=== PATIENT | male | born 1940 | race Caucasian/White ===

== ENCOUNTER 2019-03-20 08:40 | Inpatient (IN) | payer MEDICARE ==
--- NOTE | 2019-03-20 11:10 | ER Document Report ---
ED Medical Screen (RME) - General Chief Complaint: Shortness Of Breath Stated Complaint: TROUBLE BREATHING Time Seen by Provider: 03/20/19 11:01 Primary Care Provider: RAFITA ROBINS MD [Primary Care Provider] - Follow up as needed TRAVEL OUTSIDE OF THE [place] IN LAST 30 DAYS: No - HPI Notes: 03/20/19 11:09 Patient is a 78-year-old male with no significant past medical history who presents complaining of intermittent shortness of breath primarily with ambulation over the past 3 weeks with the development of a dry cough over the past 2 to 3 days. Patient states that he is otherwise feeling well and is eating and drinking without difficulty. He is urinating normally and having normal bowel movements. No history of UT, CAD, CHF, CKD, DM, PE, DVT. Patient does not have any pain associated. Denies ACOSTA, fever, neck pain, URI, CP, n/v/d, Abd pain, dysuria, back pain, or rash. I have treated and performed a rapid initial assessment of this patient. A comprehensive ED assessment and evaluation of the patient, analysis of test results and completion of medical decision making process will be conducted by additional ED providers. PHYSICAL EXAMINATION: GENERAL: Well-appearing, well-nourished and in no acute distress. A&Ox4. Answers questions appropriately. Speaking in complete sentences without any difficulty. LUNGS: Breath sounds clear to auscultation bilaterally and equal. No wheezes rales or rhonchi. HEART: Regular rate and rhythm without murmurs, rubs, gallops. Extremities: No cyanosis, clubbing, or edema b/l. No lower extremity asymmetry. NEUROLOGICAL: Normal speech, normal gait. PSYCH: Normal mood, normal affect. - Related Data Allergies/Adverse Reactions: Penicillins Allergy (Verified 03/20/19 08:45) Physical Exam - Vital signs Vitals: Temp Pulse Resp BP Pulse Ox 98.1 F 103 H 18 121/73 96 03/20/19 08:49 03/20/19 08:49 03/20/19 08:49 03/20/19 08:49 03/20/19 08:49 Course - Vital Signs Vital signs: Temp Pulse Resp BP Pulse Ox 98.1 F 103 H 18 121/73 96 03/20/19 08:49 03/20/19 08:49 03/20/19 08:49 03/20/19 08:49 03/20/19 08:49 Doctor's Discharge - Discharge Referrals: RAFITA ROBINS MD [Primary Care Provider] - Follow up as needed
--- NOTE | 2019-03-20 11:57 | RADIOLOGY REPORT (SQ) ---
EXAM DESCRIPTION: CHEST 2 VIEWS COMPLETED DATE/TIME: 03/20/2019 11:40 am REASON FOR STUDY: cough, sob COMPARISON: None. NUMBER OF VIEWS: Two view. TECHNIQUE: Frontal and lateral radiographic views of the chest acquired. LIMITATIONS: None. FINDINGS: LUNGS AND PLEURA: Hyperinflation. No evidence of pulmonary edema or pneumonia. No pleural effusion. Attenuated blood vessels and flattened jes-diaphragms. MEDIASTINUM AND HILAR STRUCTURES: No masses. No contour abnormalities. HEART AND VASCULAR STRUCTURES: Cardiomegaly. No evidence for failure. BONES: No acute findings. HARDWARE: None in the chest. OTHER: No other significant finding. IMPRESSION: COPD. NO ACUTE RADIOGRAPHIC FINDING IN THE CHEST. TECHNICAL DOCUMENTATION: JOB ID: [id number] [employer]- All Rights Reserved Reading location - IP/workstation name: [email or web address]
[2019-03-20 12:00] LABS: ABSOLUTE BASOPHILS # (AUTO) 0.1 10^3/uL (0.0-0.2); ABSOLUTE EOSINOPHILS # (AUTO) 0.3 10^3/uL (0.0-0.6); ABSOLUTE LYMPHOCYTES (AUTO) 1.4 10^3/uL (0.5-4.7); ABSOLUTE MONOCYTES (AUTO) 0.5 10^3/uL (0.1-1.4); ABSOLUTE NEUT (AUTO) 3.8 10^3/uL (1.7-8.2); EOSINOPHILS % (AUTO) 4.9 % (0-6); HEMATOCRIT 41.5 % (37.9-51.0); HEMOGLOBIN 13.9 g/dL (13.5-17.0); LYMPHOCYTES % (AUTO) 23.9 % (13-45); MEAN CORPUSCULAR HEMOGLOBIN 29.9 pg (27.0-33.4); MEAN CORPUSCULAR HGB CONC 33.6 g/dL (32.0-36.0); MEAN CORPUSCULAR VOLUME 89 fl (80-97); MONOCYTES % (AUTO) 7.8 % (3-13); PLATELET COUNT 107 10^3/uL (150-450); RED BLOOD COUNT 4.66 10^6/uL (4.35-5.55); RED CELL DISTRIBUTION WIDTH 13.9 % (11.5-14.0); SEGMENTED NEUTROPHILS % (AUTO) 62.4 % (42-78); TOTAL CELLS COUNTED % (AUTO) 100 %; WHITE BLOOD COUNT 6.1 10^3/uL (4.0-10.5)
[2019-03-20 12:09] LABS: APPEARANCE,URINE CLEAR; BILIRUBIN,URINE NEGATIVE (NEGATIVE); COLOR,URINE YELLOW; GLUCOSE, URINE NEGATIVE (NEGATIVE); KETONES,URINE NEGATIVE (NEGATIVE); LEUKOCYTE ESTERASE,URINE NEGATIVE (NEGATIVE); NITRITE,URINE NEGATIVE (NEGATIVE); PROTEIN,URINE NEGATIVE (NEGATIVE); URINE SPECIFIC GRAVITY 1.016
[2019-03-20 12:19] LABS: ALANINE AMINOTRANSFERASE 21 U/L (21-72); ALBUMIN 4.2 g/dL (3.5-5.0); ALKALINE PHOSPHATASE 78 U/L (38-126); ANION GAP 7 (5-19); ASPARTATE AMINO TRANSFERASE 23 U/L (17-59); BILIRUBIN,DIRECT 0.2 mg/dL (0.0-0.4); BILIRUBIN,TOTAL 0.6 mg/dL (0.2-1.3); BLOOD UREA NITROGEN 16 mg/dL (7-20); CALCIUM 9.6 mg/dL (8.4-10.2); CARBON DIOXIDE 29 mmol/L (22-30); CHLORIDE 104 mmol/L (98-107); GLUCOSE 86 mg/dL (75-110); SODIUM 139.8 mmol/L (137-145); TOTAL PROTEIN 6.8 g/dL (6.3-8.2)
--- NOTE | 2019-03-20 14:24 | RADIOLOGY REPORT (SQ) ---
EXAM DESCRIPTION: CTA CHEST COMPLETED DATE/TIME: 03/20/2019 2:02 pm REASON FOR STUDY: eval for PE COMPARISON: None. TECHNIQUE: CT scan of the chest performed using helical scanning technique with dynamic intravenous contrast injection. Images reviewed with lung, soft tissue and bone windows. Reconstructed coronal and sagittal MPR images reviewed. Additional 3 dimensional post-processing performed to develop Maximal Intensity Projection images (CA P). All images stored on PACS. All CT scanners at this facility use dose modulation, iterative reconstruction, and/or weight based d osing when appropriate to reduce radiation dose to as low as reasonably achievable (ALARA). [facility]: Dose Right [facility]: CareDose [facility]: Dose Right [facility]: Teradose 4D [facility]: Teleus CONTRAST TYPE AND DOSE: contrast/concentration: Isovue 350.00 mg/ml; Total Contrast Delivered: 74.0 ml; Total Saline Delivered: 90.0 ml Contrast bolus not optimized for the pulmonary arteries. RENAL FUNCTION: GFR > 60. RADIATION DOSE: CT Rad equipment meets quality standard of care and radiation dose reduction techniq ues were employed. CTDIvol: 14.3 - 19.8 mGy. DLP: 601 mGy-cm. . LIMITATIONS: None. FINDINGS: LUNGS AND PLEURA: No pneumothorax. Bibasilar small areas of airspace disease-atelectasis and pleural effusions. AORTA AND GREAT VESSELS: 4 cm infrarenal abdominal aortic aneurysm. . Contrast bolus not optimized for the aorta. HEART: No pericardial effusion. Heavy coronary artery calcifications. PULMONARY ARTERIES: No emboli visualized in the main pulmonary arteries. Bolus timing prevents evalu ation of the segmental branches. HILAR AND MEDIASTINAL STRUCTURES: No identified masses or abnormal nodes. HARDWARE: None in the chest. UPPER ABDOMEN: 4 cm infrarenal abdominal aortic aneurysm. Limited exam. THYROID AND OTHER SOFT TISSUES: No masses. No adenopathy. BONES: No acute or significant finding. 3D MIPS: Confirm above findings. OTHER: No other significant finding. IMPRESSION: Bibasilar small areas of airspace disease-atelectasis and pleural effusions. No emboli visualized in the main pulmonary arteries. Contrast bolus timing prevents evaluation of th e segmental branches. 4 cm infrarenal abdominal aortic aneurysm. Limited exam. COMMENT: Quality ID # [id number]: Final reports with documentation of one or more dose reduction techniques (e.g., Automated exposure control, adjustment of the mA and/or kV according to patient size, use of iterative reconstruction technique) TECHNICAL DOCUMENTATION: JOB ID: [id number] [place]-72 2010 [employer]- All Rights Reserved Reading location - IP/workstation name: [email or web address]
--- NOTE | 2019-03-20 14:50 | ER Document Report ---
ED General - General Chief Complaint: Shortness Of Breath Stated Complaint: TROUBLE BREATHING Time Seen by Provider: 03/20/19 11:01 Primary Care Provider: RAFITA ROBINS MD [Primary Care Provider] - Follow up as needed TRAVEL OUTSIDE OF THE [place] IN LAST 30 DAYS: No - HPI Notes: Patient is a 78-year-old gentleman who presents to the emergency department for evaluation of difficulty breathing. He states is primarily with ambulation. He has had a cough that has been nonproductive. Symptoms have been ongoing intermittently for the last 6 weeks. He denies any fevers or chills. He denies any nausea or vomiting. 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 He states that he has had intermittent chest pain over the last several years, states that that has not been worse as of late. No fevers or chills. No nausea or vomiting. He always has intermittent swelling in his legs, states that does not seem to be worse than normal. - Related Data Allergies/Adverse Reactions: Penicillins Allergy (Verified 03/20/19 08:45) Past Medical History - General Information source: Patient - Social History Smoking Status: Never Smoker Frequency of alcohol use: None Drug Abuse: None Family History: Reviewed & Not Pertinent Patient has suicidal ideation: No Patient has homicidal ideation: No - Past Medical History Cardiac Medical History: Reports: Hx Pulmonary Embolism Renal/ Medical History: Denies: Hx Peritoneal Dialysis Past Surgical History: Reports: Hx Abdominal Surgery Review of Systems - Review of Systems Constitutional: No symptoms reported EENT: No symptoms reported Cardiovascular: See HPI Respiratory: See HPI Gastrointestinal: No symptoms reported Genitourinary: No symptoms reported Musculoskeletal: See HPI Skin: No symptoms reported Neurological/Psychological: No symptoms reported Physical Exam - Vital signs Vitals: Temp Pulse Resp BP Pulse Ox 98.1 F 103 H 18 121/73 96 03/20/19 08:49 03/20/19 08:49 03/20/19 08:49 03/20/19 08:49 03/20/19 08:49 - Notes Notes: Vital signs reviewed, please refer to chart. Head is normocephalic, atraumatic. Pupils equal round, reactive to light. Neck is supple without meningismus. Heart is regular rate and rhythm. Lungs are clear to auscultation bilaterally. Abdomen is soft, nontender, normoactive bowel sounds throughout. Extremities without cyanosis, clubbing. Posterior calves are nontender. 2+ pretibial edema noted. Peripheral pulses are equal. Skin is warm and dry. Patient is awake, alert, neurological exam is nonfocal. Course - Re-evaluation Re-evalutation: 03/20/19 16:51 Patient presents emergency department for evaluation of dyspnea on exertion. Laboratory investigations reveal a markedly elevated proBNP. Because of his history of pulmonary embolus, I did order a CT angiogram of the chest. In fact this PE was trauma induced. CT angiogram failed to reveal any pulmonary embolus. He does have pleural effusions. I believe this is all secondary to heart failure. He was ambulated around the department. He was 82% on room air with ambulation. Given IV Lasix. This is a patient who has no primary care physician. He does not follow regularly with any doctor. He has significant coronary artery calcification on CT angiogram. Will contact medicine for admission. 03/20/19 16:55 Dr. Rodrigez will come to evaluate the patient. - Vital Signs Vital signs: Temp Pulse Resp BP Pulse Ox 98.1 F 103 H 16 124/105 H 98 03/20/19 08:49 03/20/19 08:49 03/20/19 16:01 03/20/19 16:01 03/20/19 16:01 - Laboratory Result Diagrams: 03/20/19 11:48 03/20/19 11:48 Laboratory results interpreted by me: 03/20/19 03/20/19 03/20/19 11:48 11:48 11:48 Plt Count 107 L NT-Pro-B Natriuret Pep 5200 H Urine Blood SMALL H Urine Urobilinogen 2.0 H - Diagnostic Test Radiology reviewed: Reports reviewed Radiology results interpreted by me: 03/20/19 16:51 Chest X-Ray 03/20/19 11:08 IMPRESSION: COPD. NO ACUTE RADIOGRAPHIC FINDING IN THE CHEST. Chest/Abdomen CTA 03/20/19 13:07 IMPRESSION: Bibasilar small areas of airspace disease-atelectasis and pleural effusions. No emboli visualized in the main pulmonary arteries. Contrast bolus timing prevents evaluation of the segmental branches. 4 cm infrarenal abdominal aortic aneurysm. Limited exam. - EKG Interpretation by Me Additional EKG results interpreted by me: 03/20/19 16:52 Sinus mechanism with a rate of 81 bpm. Normal axis. IVCD. Nonspecific ST c hanges, but no acute changes concerning for ischemia or infarction. No old studies available for comparison. Discharge - Discharge Clinical Impression: Dyspnea on exertion Congestive heart failure Qualifiers: Heart failure chronicity: unspecified Condition: Stable Disposition: ADMITTED OBSERVATION Admitting Provider: Rain (Hospitalist) Unit Admitted: IMCU Referrals: RAFITA ROBINS MD [Primary Care Provider] - Follow up as needed
[2019-03-20] MEDS ORDERED: FUROSEMIDE INJ/PF 20 MG/2 ML SDV IV ONE (16:46)
--- NOTE | 2019-03-20 17:43 | PDOC H&P ---
History of Present Illness Admission Date/PCP: RAFITA ROBINS MD History of Present Illness: JARROD PAYNE is a 78 year old male patient with past medical history of pulmonary embolism presents with chief complaint of shortness of breath and difficulty breathing. Patient reports this has been in his usual baseline state of health up until 6 weeks when he started to have difficulty breathing and shortness of breath which is progressively worsening and precipitated by mild exertion. This morning patient is not able to do what he used to do before. 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 Patient also endorses associated intermittent cough which is nonproductive. Eyes any nausea vomiting or abdominal pain. No diarrhea no urinary complaints. No headache, dizziness, blurring of vision or seizure activities. His blood work is remarkable for BNP of 5200. His CTA of the chest reported as bibasilar a small area of airspace disease/atelectasis and pleural effusion. Past Medical History Cardiac Medical History: Reports: Pulmonary Embolism Social History Smoking Status: Never Smoker - Advance Directive Resuscitation Status: Full Code Family History Family History: Reviewed & Not Pertinent Parental Family History Reviewed: Yes Children Family History Reviewed: Yes Sibling(s) Family History Reviewed.: Yes Medication/Allergy Allergies/Adverse Reactions: Penicillins Allergy (Verified 03/20/19 08:45) Review of Systems Constitutional: ABSENT: chills, fever(s), headache(s), weight gain, weight loss Eyes: ABSENT: visual disturbances Ears: ABSENT: hearing changes Cardiovascular: PRESENT: chest pain, dyspnea on exertion Respiratory: PRESENT: cough Gastrointestinal: ABSENT: abdominal pain, constipation, diarrhea, hematemesis, hematochezia, nausea, vomiting Genitourinary: ABSENT: dysuria, hematuria Musculoskeletal: ABSENT: joint swelling Integumentary: ABSENT: rash, wounds Neurological: ABSENT: abnormal gait, abnormal speech, confusion, dizziness, focal weakness, syncope Psychiatric: ABSENT: anxiety, depression, homidical ideation, suicidal ideation Endocrine: ABSENT: cold intolerance, heat intolerance, polydipsia, polyuria Hematologic/Lymphatic: ABSENT: easy bleeding, easy bruising Physical Exam Vital Signs: Temp Pulse Resp BP Pulse Ox 98.1 F 103 H 16 124/105 H 98 03/20/19 08:49 03/20/19 08:49 03/20/19 16:01 03/20/19 16:01 03/20/19 16:01 Intake & Output 03/19/19 03/20/19 03/21/19 06:59 06:59 06:59 Weight 78.7 kg General appearance: PRESENT: no acute distress Head exam: PRESENT: atraumatic Neck exam: ABSENT: carotid bruit, JVD, lymphadenopathy, thyromegaly Respiratory exam: PRESENT: decreased breath sounds, rales. ABSENT: rhonchi, wheezes Cardiovascular exam: PRESENT: RRR. ABSENT: diastolic murmur, rubs, systolic murmur GI/Abdominal exam: PRESENT: normal bowel sounds, soft. ABSENT: distended, guarding, mass, organolmegaly, rebound, tenderness Extremities exam: PRESENT: +2 edema - Bilateral Neurological exam: PRESENT: alert, awake, oriented to place, oriented to time, oriented to situation Results Laboratory Results: 03/20/19 11:48 03/20/19 11:48 03/20/19 03/20/19 03/20/19 11:48 11:48 11:48 WBC 6.1 RBC 4.66 Hgb 13.9 Hct 41.5 MCV 89 MCH 29.9 MCHC 33.6 RDW 13.9 Plt Count 107 L Seg Neutrophils % 62.4 Lymphocytes % 23.9 Monocytes % 7.8 Eosinophils % 4.9 Basophils % 1.0 Absolute Neutrophils 3.8 Absolute Lymphocytes 1.4 Absolute Monocytes 0.5 Absolute Eosinophils 0.3 Absolute Basophils 0.1 Sodium 139.8 Potassium 4.0 Chloride 104 Carbon Dioxide 29 Anion Gap 7 BUN 16 Creatinine 0.76 Est GFR ( Amer) > 60 Est GFR (Non-Af Amer) > 60 Glucose 86 Calcium 9.6 Total Bilirubin 0.6 AST 23 ALT 21 Alkaline Phosphatase 78 Total Protein 6.8 Albumin 4.2 Urine Color YELLOW Urine Appearance CLEAR Urine pH 6.0 Ur Specific [place] 1.016 Urine Protein NEGATIVE Urine Glucose (UA) NEGATIVE Urine Ketones NEGATIVE Urine Blood SMALL H Urine Nitrite NEGATIVE Ur Leukocyte Esterase NEGATIVE Urine WBC (Auto) 2 Urine RBC (Auto) 9 03/20/19 11:48 NT-Pro-B Natriuret Pep 5200 H Impressions: Chest X-Ray 03/20/19 11:08 IMPRESSION: COPD. NO ACUTE RADIOGRAPHIC FINDING IN THE CHEST. Chest/Abdomen CTA 03/20/19 13:07 IMPRESSION: Bibasilar small areas of airspace disease-atelectasis and pleural effusions. No emboli visualized in the main pulmonary arteries. Contrast bolus timing prevents evaluation of the segmental branches. 4 cm infrarenal abdominal aortic aneurysm. Limited exam. Assessment and Plan - Diagnosis (1) New onset of congestive heart failure Is this a current diagnosis for this admission?: Yes Plan: Shortness of breath precipitated by mild exertion. Bilateral +3 pitting edema. BNP of 5200. We will start the patient on IV Lasix and also he will be on Coreg and lisinopril. Echocardiogram in the morning. (2) Aneurysm of infrarenal abdominal aorta Is this a current diagnosis for this admission?: Yes Plan: CT scan reported as 4 cm infrarenal abdominal aortic aneurysm. Patient needs ultrasound follow-up with his primary care physician office. - Inpatient Certification Medical Necessity: Need Close Monitoring Due to Risk of Patient Decompensation
[2019-03-20] MEDS ORDERED: ONDANSETRON HCL INJ/PF 4 MG/2 ML SDV IV PRN (17:44)
[2019-03-20] MEDS: ENOXAPARIN SODIUM INJ 40 MG/0.4 ML DISP.SYRIN SUBCUT SCH (19:39)
[2019-03-20] MEDS: BENAZEPRIL HCL 10 MG TABLET PO SCH (21:13)
[2019-03-20] MEDS: FAMOTIDINE 20 MG TABLET PO SCH (21:18)
[2019-03-20] MEDS: FUROSEMIDE INJ/PF 40 MG/4 ML SDV IV SCH (21:18)
[2019-03-20] MEDS: CARVEDILOL 6.25 MG TABLET PO SCH (21:18)
--- NOTE | 2019-03-20 23:03 | EKG REPORT ---
SEVERITY:- ABNORMAL ECG - SINUS RHYTHM PROBABLE LEFT ATRIAL ABNORMALITY NONSPECIFIC INTRAVENTRICULAR CONDUCTION DELAY INFERIOR INFARCT, AGE INDETERMINATE LATERAL INFARCT, AGE INDETERMINATE ANTERIOR INFARCT, AGE INDETERMINATE : Confirmed by: Keyla Batres 20-Mar-2019 23:03:11
[2019-03-21] MEDS: TEMAZEPAM 15 MG CAPSULE PO PRN (00:51)
[2019-03-21 05:37] LABS: ANION GAP 10 (5-19); BLOOD UREA NITROGEN 20 mg/dL (7-20); CALCIUM 9.3 mg/dL (8.4-10.2); CARBON DIOXIDE 28 mmol/L (22-30); CHLORIDE 100 mmol/L (98-107); GLUCOSE 102 mg/dL (75-110); POTASSIUM 4.2 mmol/L (3.6-5.0); SODIUM 138.3 mmol/L (137-145)
[2019-03-21] MEDS: ACETAMINOPHEN 325 MG TABLET PO PRN (06:58)
[2019-03-21] MEDS: BENAZEPRIL HCL 10 MG TABLET PO SCH ×2 (10:24→22:03)
[2019-03-21] MEDS: ENOXAPARIN SODIUM INJ 40 MG/0.4 ML DISP.SYRIN SUBCUT SCH (10:24)
[2019-03-21] MEDS: CARVEDILOL 6.25 MG TABLET PO SCH ×2 (10:34→22:01)
[2019-03-21] MEDS: DOCUSATE SODIUM 100 MG/10 ML UDC PO SCH ×2 (10:34→19:08)
[2019-03-21] MEDS: FAMOTIDINE 20 MG TABLET PO SCH ×2 (10:34→22:01)
[2019-03-21] MEDS: FUROSEMIDE INJ/PF 40 MG/4 ML SDV IV SCH ×2 (10:34→22:01)
[2019-03-21] MEDS: CHOLECALCIFEROL (D3) 1,000 UNIT (25 MCG) TABLET PO SCH (10:34)
--- NOTE | 2019-03-21 12:26 | PDOC PROGRESS REPORT ---
Subjective Progress Note for:: 03/21/19 Subjective:: JARROD PAYNE is a 78 year old male patient with past medical history of pulmonary embolism presents with chief complaint of shortness of breath and difficulty breathing. Patient reports this has been in his usual baseline state of health up until 6 weeks when he started to have difficulty breathing and shortness of breath which is progressively worsening and precipitated by mild exertion. This morning patient is not able to do what he used to do before. 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 Patient also endorses associated intermittent cough which is nonproductive. Eyes any nausea vomiting or abdominal pain. No diarrhea no urinary complaints. No headache, dizziness, blurring of vision or seizure activities. His blood work is remarkable for BNP of 5200. His CTA of the chest reported as bibasilar a small area of airspace disease/atelectasis and pleural effusion. 03/21/2019: Patient seen and examined while he is in bed. He is awake alert oriented. Reports his market improvement in his breathing. He states that he feels more energetic. Patient scheduled to have echo. Patient's potential discharge in the next 2448 hrs. Reason For Visit: NEW ONSET CHF Physical Exam Vital Signs: Temp Pulse Resp BP Pulse Ox 98.1 F 71 17 114/70 96 03/20/19 23:31 03/21/19 02:00 03/20/19 23:31 03/20/19 23:31 03/20/19 23:31 Intake & Output 03/20/19 03/21/19 03/22/19 06:59 06:59 06:59 Weight 78.7 kg General appearance: PRESENT: no acute distress Eye exam: PRESENT: conjunctiva pink Neck exam: ABSENT: carotid bruit, JVD, lymphadenopathy, thyromegaly Respiratory exam: PRESENT: clear to auscultation joslyn. ABSENT: rales, rhonchi, wheezes Cardiovascular exam: PRESENT: RRR. ABSENT: diastolic murmur, rubs, systolic murmur Vascular exam: PRESENT: normal capillary refill Extremities exam: PRESENT: +2 edema Neurological exam: PRESENT: alert, awake, oriented to person, oriented to place, oriented to time, oriented to situation Results Laboratory Results: 03/20/19 11:48 03/21/19 04:19 03/21/19 03/21/19 04:19 04:19 Sodium 138.3 Potassium 4.2 Chloride 100 Carbon Dioxide 28 Anion Gap 10 BUN 20 Creatinine 0.86 Est GFR ( Amer) > 60 Est GFR (Non-Af Amer) > 60 Glucose 102 Calcium 9.3 TSH 2.20 03/20/19 11:48 NT-Pro-B Natriuret Pep 5200 H Impressions: Chest X-Ray 03/20/19 11:08 IMPRESSION: COPD. NO ACUTE RADIOGRAPHIC FINDING IN THE CHEST. Chest/Abdomen CTA 03/20/19 13:07 IMPRESSION: Bibasilar small areas of airspace disease-atelectasis and pleural effusions. No emboli visualized in the main pulmonary arteries. Contrast bolus timing prevents evaluation of the segmental branches. 4 cm infrarenal abdominal aortic aneurysm. Limited exam. Assessment and Plan - Diagnosis (1) New onset of congestive heart failure Is this a current diagnosis for this admission?: Yes Plan: Continue current regimen (2) Aneurysm of infrarenal abdominal aorta Is this a current diagnosis for this admission?: Yes Plan: CT scan reported as 4 cm infrarenal abdominal aortic aneurysm. Patient needs ultrasound follow-up with his primary care physician office.
[2019-03-21] MEDS ORDERED: MULTIVITAMIN TABLET PO SCH (14:00)
[2019-03-22] MEDS: TEMAZEPAM 15 MG CAPSULE PO PRN (00:01)
[2019-03-22] MEDS ORDERED: DIAZEPAM 5 MG TABLET ONE (01:30)
[2019-03-22] MEDS ORDERED: DIAZEPAM 5 MG TABLET PO ONE (01:30)
[2019-03-22] MEDS: ACETAMINOPHEN 325 MG TABLET PO PRN (03:26)
[2019-03-22] MEDS ORDERED: POTASSIUM CHLORIDE 10 MEQ CAPSULE.ER PO ONE ×2 (10:30→14:26)
[2019-03-22 12:27] LABS: TRIGLYCERIDES 217 mg/dL (<150)
[2019-03-22 12:38] LABS: DIRECT LDL 156 mg/dL (<100)
[2019-03-22 12:40] LABS: VLDL CHOLESTEROL 43.4 mg/dL (10-31)
[2019-03-22] MEDS: ENOXAPARIN SODIUM INJ 40 MG/0.4 ML DISP.SYRIN SUBCUT SCH (14:23)
[2019-03-22] MEDS: DOCUSATE SODIUM 100 MG/10 ML UDC PO SCH ×2 (14:23→18:04)
[2019-03-22] MEDS: CARVEDILOL 6.25 MG TABLET PO SCH ×2 (14:23→21:39)
[2019-03-22] MEDS: BENAZEPRIL HCL 10 MG TABLET PO SCH (14:24)
[2019-03-22] MEDS: FAMOTIDINE 20 MG TABLET PO SCH ×2 (14:24→21:39)
[2019-03-22] MEDS: MULTIVITAMIN TABLET PO SCH (14:29)
[2019-03-22] MEDS: MAGNESIUM OXIDE 400 MG TABLET PO SCH (14:29)
[2019-03-22] MEDS: CHOLECALCIFEROL (D3) 1,000 UNIT (25 MCG) TABLET PO SCH (14:29)
[2019-03-22] MEDS: FUROSEMIDE INJ/PF 40 MG/4 ML SDV IV SCH ×2 (14:29→21:39)
--- NOTE | 2019-03-22 17:15 | PDOC PROGRESS REPORT ---
Subjective Progress Note for:: 03/22/19 Subjective:: JARROD PAYNE is a 78 year old male patient with past medical history of pulmonary embolism presents with chief complaint of shortness of breath and difficulty breathing. Patient reports this has been in his usual baseline state of health up until 6 weeks when he started to have difficulty breathing and shortness of breath which is progressively worsening and precipitated by mild exertion. This morning patient is not able to do what he used to do before. 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 Patient also endorses associated intermittent cough which is nonproductive. Eyes any nausea vomiting or abdominal pain. No diarrhea no urinary complaints. No headache, dizziness, blurring of vision or seizure activities. His blood work is remarkable for BNP of 5200. His CTA of the chest reported as bibasilar a small area of airspace disease/atelectasis and pleural effusion. 03/22/2019. No acute events overnight, patient is ambulatory, p.o. tolerant, having normal bowel and bladder movements, lower extremity edema has improved, has any fever, chills, nausea, vomiting, diarrhea, constipation or any urinary symptoms. Patient has a pending 2D echo. Reason For Visit: NEW ONSET CHF Physical Exam Vital Signs: Temp Pulse Resp BP Pulse Ox 97.5 F 62 14 107/70 98 03/22/19 11:28 03/22/19 11:28 03/22/19 11:28 03/22/19 11:28 03/22/19 11:28 Intake & Output 03/21/19 03/22/19 03/23/19 06:59 06:59 06:59 Intake Total 600 Balance 600 Weight 78.7 kg 78.7 kg General appearance: PRESENT: no acute distress, well-developed, well-nourished Head exam: PRESENT: atraumatic, normocephalic Eye exam: PRESENT: conjunctiva pink, EOMI, PERRLA. ABSENT: scleral icterus Ear exam: PRESENT: normal external ear exam Mouth exam: PRESENT: moist, tongue midline Neck exam: ABSENT: carotid bruit, JVD, lymphadenopathy, thyromegaly Respiratory exam: PRESENT: clear to auscultation joslyn. ABSENT: rales, rhonchi, wheezes Cardiovascular exam: PRESENT: RRR. ABSENT: diastolic murmur, rubs, systolic murmur Pulses: PRESENT: normal dorsalis pedis pul Vascular exam: PRESENT: normal capillary refill GI/Abdominal exam: PRESENT: normal bowel sounds, soft. ABSENT: distended, guarding, mass, organolmegaly, rebound, tenderness Rectal exam: PRESENT: deferred Extremities exam: PRESENT: full ROM. ABSENT: calf tenderness, clubbing, pedal edema Neurological exam: PRESENT: alert, awake, oriented to person, oriented to place, oriented to time, oriented to situation, CN II-XII grossly intact. ABSENT: motor sensory deficit Psychiatric exam: PRESENT: appropriate affect, normal mood. ABSENT: homicidal ideation, suicidal ideation Skin exam: PRESENT: dry, intact, warm. ABSENT: cyanosis, rash Results Laboratory Results: 03/20/19 11:48 03/21/19 04:19 03/22/19 03/22/19 04:19 11:52 Triglycerides Cancelled 217 H Cholesterol Cancelled 271.90 H LDL Cholesterol Direct Cancelled 156 H VLDL Cholesterol Cancelled 43.4 H HDL Cholesterol Cancelled 63 03/20/19 11:48 NT-Pro-B Natriuret Pep 5200 H Impressions: Chest X-Ray 03/20/19 11:08 IMPRESSION: COPD. NO ACUTE RADIOGRAPHIC FINDING IN THE CHEST. Chest/Abdomen CTA 03/20/19 13:07 IMPRESSION: Bibasilar small areas of airspace disease-atelectasis and pleural effusions. No emboli visualized in the main pulmonary arteries. Contrast bolus timing prevents evaluation of the segmental branches. 4 cm infrarenal abdominal aortic aneurysm. Limited exam. Assessment and Plan - Diagnosis (1) New onset of congestive heart failure Is this a current diagnosis for this admission?: Yes Plan: Denies any history of CAD. proBNP on admission> 6000. Cardiac diet, IV diuretics, beta-blockers, FORD. Pending 2D echo. (2) Hyperlipidemia Is this a current diagnosis for this admission?: Yes Plan: ASCVD score 26.2. High intensity statins. Monitor LFTs. Outpatient PCP follow-up. (3) Aneurysm of infrarenal abdominal aorta Is this a current diagnosis for this admission?: Yes Plan: CT scan reported as 4 cm infrarenal abdominal aortic aneurysm. Outpatient PCP follow-up. Optimize BP. Continue treating hyperlipidemia.
[2019-03-22] MEDS ORDERED: ATORVASTATIN CALCIUM 40 MG TABLET PO SCH (22:00)
[2019-03-23 05:22] LABS: ABSOLUTE BASOPHILS # (AUTO) 0.1 10^3/uL (0.0-0.2); ABSOLUTE EOSINOPHILS # (AUTO) 0.4 10^3/uL (0.0-0.6); ABSOLUTE LYMPHOCYTES (AUTO) 1.7 10^3/uL (0.5-4.7); ABSOLUTE MONOCYTES (AUTO) 0.5 10^3/uL (0.1-1.4); ABSOLUTE NEUT (AUTO) 2.5 10^3/uL (1.7-8.2); EOSINOPHILS % (AUTO) 7.2 % (0-6); HEMATOCRIT 39.5 % (37.9-51.0); HEMOGLOBIN 13.5 g/dL (13.5-17.0); LYMPHOCYTES % (AUTO) 32.3 % (13-45); MEAN CORPUSCULAR HEMOGLOBIN 30.1 pg (27.0-33.4); MEAN CORPUSCULAR HGB CONC 34.1 g/dL (32.0-36.0); MEAN CORPUSCULAR VOLUME 88 fl (80-97); MONOCYTES % (AUTO) 10.2 % (3-13); RED BLOOD COUNT 4.47 10^6/uL (4.35-5.55); RED CELL DISTRIBUTION WIDTH 13.6 % (11.5-14.0); SEGMENTED NEUTROPHILS % (AUTO) 49.3 % (42-78); TOTAL CELLS COUNTED % (AUTO) 100 %; WHITE BLOOD COUNT 5.2 10^3/uL (4.0-10.5)
[2019-03-23 05:48] LABS: ALANINE AMINOTRANSFERASE 19 U/L (21-72); ALBUMIN 3.9 g/dL (3.5-5.0); ALKALINE PHOSPHATASE 77 U/L (38-126); ANION GAP 7 (5-19); ASPARTATE AMINO TRANSFERASE 21 U/L (17-59); BILIRUBIN,DIRECT 0.3 mg/dL (0.0-0.4); BILIRUBIN,TOTAL 0.6 mg/dL (0.2-1.3); BLOOD UREA NITROGEN 22 mg/dL (7-20); CALCIUM 9.4 mg/dL (8.4-10.2); CARBON DIOXIDE 27 mmol/L (22-30); CHLORIDE 100 mmol/L (98-107); GLUCOSE 97 mg/dL (75-110); PLATELET COUNT 92 10^3/uL (150-450); POTASSIUM 4.2 mmol/L (3.6-5.0); SODIUM 134.3 mmol/L (137-145); TOTAL PROTEIN 6.4 g/dL (6.3-8.2)
[2019-03-23] MEDS: FUROSEMIDE INJ/PF 40 MG/4 ML SDV IV SCH (09:36)
[2019-03-23] MEDS: ENOXAPARIN SODIUM INJ 40 MG/0.4 ML DISP.SYRIN SUBCUT SCH (09:43)
[2019-03-23] MEDS: FAMOTIDINE 20 MG TABLET PO SCH (09:44)
[2019-03-23] MEDS: DOCUSATE SODIUM 100 MG/10 ML UDC PO SCH (09:44)
[2019-03-23] MEDS: CARVEDILOL 6.25 MG TABLET PO SCH (09:45)
[2019-03-23] MEDS: MAGNESIUM OXIDE 400 MG TABLET PO SCH (09:46)
[2019-03-23] MEDS: MULTIVITAMIN TABLET PO SCH (09:46)
[2019-03-23] MEDS: CHOLECALCIFEROL (D3) 1,000 UNIT (25 MCG) TABLET PO SCH (09:46)
[2019-03-23] MEDS ORDERED: POTASSIUM CHLORIDE 10 MEQ CAPSULE.ER PO SCH (10:00)
[2019-03-23 10:26] VITALS: BP 107/70
[2019-03-23] MEDS ORDERED: LISINOPRIL 10 MG TABLET PO SCH (22:00)
--- NOTE | 2019-03-23 22:59 | XCELERA REPORT ---
[address] [address] Transthoracic Echocardiogram Report Name: JARROD PAYNE Age: 78 yrs Gender: Male : 1940 Patient Status: Inpatient Patient Location: [address] [place], [place] [address]A Study Date: 03/21/2019 10:15 AM Height: 72 in Weight: 173 lb BSA: 2.0 m2 Procedure: A two-dimensional transthoracic echocardiogram with color flow and Doppler was performed. The study was technically difficult with many images being suboptimal in quality. Reason For Study: New onset CHF History: CHF. Ordering Physician: SEA BIRMINGHAM Performed By: Manda Mar Interpretation Summary A two-dimensional transthoracic echocardiogram with color flow and Doppler was performed. The study was technically difficult with many images being suboptimal in quality. The left ventricle is moderately to severly dilated. There is normal left ventricular wall thickness. LV EF is 30% Left ventricular systolic function is severely reduced. The LV apex is akinetic.The mid Asnteroseptum,mid anterior wall, and mid IV septum are also akinetic.The rest of the LV armstrong are hypokinetic. There is no thrombus. Unable to assess for ASD,VSD,or PFO. The right ventricle is normal in size and function. The right atrium is normal. The left atrium is mildly dilated. There is mild to moderate mitral annular calcification. There is no evidence of mitral valve prolapse. There is no vegetation seen on the mitral valve. There is no mitral valve stenosis. There is a mild to moderate amount of mitral regurgitation There is no aortic valvular vegetation. There is mild aortic stenosis There is a peak gradient of 18 mm of Hg. There is no LVOT obstruction. There is a mild amount of aortic regurgitation There is no tricuspid stenosis. There is a mild amount of tricuspid regurgitation There is mild pulmonary hypertension by echo RVSP is 40 mm of Hg , with RA mean of 10. The pulmonic valve is not well visualized. The aortic root is not well visualized but is probably normal size. There is no pericardial effusion. MMode/2D Measurements & Calculations RVDd: 3.4 cm LVIDd: 7.6 cm FS: 20.5 % Ao root diam: 3.7 cm IVSd: 0.91 cm LVIDs: 6.1 cm EDV(Teich): Ao root area: LVPWd: 1.0 cm 311.3 ml 10.5 cm2 ESV(Teich): 185.4 ml EF(Teich): 40.4 % EDV(MOD-sp4): SV(MOD-sp4): 237.3 ml 91.6 ml ESV(MOD-sp4): 145.7 ml EF(MOD-sp4): 38.6 % Doppler Measurements & Calculations MV E max maría elena: MV dec slope: Ao V2 max: AI max maría elena: 81.1 cm/sec 212.7 cm/sec 351.8 cm/sec MV A max maría elena: 459.7 cm/sec2 Ao max PG: AI max P.5 mmHg 42.6 cm/sec MV dec time: 18.1 mmHg AI dec slope: MV E/A: 1.9 0.18 sec Ao V2 mean: 157.8 cm/sec 254.3 cm/sec2 AI P1/2t: 405.2 msec Ao mean P.5 mmHg Ao V2 VTI: 43.9 cm LV V1 max PG: TR max maría elena: 2.4 mmHg 277.2 cm/sec LV V1 mean PG: TR max P.7 mmHg 1.1 mmHg LV V1 max: 77.1 cm/sec LV V1 mean: 49.2 cm/sec LV V1 VTI: 15.2 cm LV dP/dt: 704.1 mmHg/s Left Ventricle The left ventricle is moderately to severly dilated. There is normal left ventricular wall thickness. LV EF is 30%. Left ventricular systolic function is severely reduced. The LV apex is akinetic.The mid Asnteroseptum,mid anterior wall, and mid IV septum are also akinetic.The rest of the LV armstrong are hypokinetic. There is no thrombus. Unable to assess for ASD,VSD,or PFO. Right Ventricle The right ventricle is normal in size and function. Atria The right atrium is normal. The left atrium is mildly dilated. Mitral Valve There is mild to moderate mitral annular calcification. There is no evidence of mitral valve prolapse. There is no vegetation seen on the mitral valve. There is no mitral valve stenosis. There is a mild to moderate amount of mitral regurgitation. Aortic Valve There is no aortic valvular vegetation. There is mild aortic stenosis. There is a peak gradient of 18 mm of Hg. There is no LVOT obstruction. There is a mild amount of aortic regurgitation. Tricuspid Valve There is no tricuspid stenosis. There is a mild amount of tricuspid regurgitation. There is mild pulmonary hypertension by echo. RVSP is 40 mm of Hg , with RA mean of 10. Pulmonic Valve The pulmonic valve is not well visualized. Great Vessels The aortic root is not well visualized but is probably normal size. The inferior vena cava was not visualized. Effusions There is no pericardial effusion. : SEA BIRMINGHAM > Mari Coronado
--- NOTE | 2019-03-26 11:54 | PDOC DISCHARGE SUMMARY ---
General - Admit/Disc Date/PCP Admission Date/Primary Care Provider: 03/20/19 17:49 RAFITA ROBINS MD Discharge Date: 03/23/19 - Discharge Diagnosis (1) New onset of congestive heart failure Is this a current diagnosis for this admission?: Yes (2) Hyperlipidemia Is this a current diagnosis for this admission?: Yes (3) Aneurysm of infrarenal abdominal aorta Is this a current diagnosis for this admission?: Yes - Additional Information Resuscitation Status: Full Code Discharge Diet: Cardiac Discharge Activity: Activity As Tolerated, Balance Activity w/Rest, Weigh Daily Prescriptions: Aspirin [Ecotrin 81 mg EC Tablet] 81 mg PO DAILY 30 Days #30 tabec Carvedilol [Coreg 6.25 mg Tablet] 6.25 mg PO Q12 30 Days #60 tablet Furosemide [Lasix 20 mg Tablet] 20 mg PO BID 30 Days #30 tablet Lisinopril [Zestril] 2.5 mg PO DAILY 30 Days #30 tablet Rosuvastatin Calcium [Crestor 20 mg Tablet] 20 mg PO QHS 30 Days #30 tablet Home Medications: Multivitamin [Multiple Vitamins] 1 each PO DAILY 03/20/19 Aspirin [Ecotrin 81 mg EC Tablet] 81 mg PO DAILY 30 Days #30 tabec 03/23/19 Carvedilol [Coreg 6.25 mg Tablet] 6.25 mg PO Q12 30 Days #60 tablet 03/23/19 Furosemide [Lasix 20 mg Tablet] 20 mg PO BID 30 Days #30 tablet 03/23/19 Lisinopril [Zestril] 2.5 mg PO DAILY 30 Days #30 tablet 03/23/19 Rosuvastatin Calcium [Crestor 20 mg Tablet] 20 mg PO QHS 30 Days #30 tablet 03/23/19 History of Present Illness History of Present Illness: JARROD PAYNE is a 78 year old male patient with past medical history of pulmonary embolism presents with chief complaint of shortness of breath and difficulty breathing. Patient reports this has been in his usual baseline state of health up until 6 weeks when he started to have difficulty breathing and shortness of breath which is progressively worsening and precipitated by mild exertion. This morning patient is not able to do what he used to do before. 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 Patient also endorses associated intermittent cough which is nonproductive. Eyes any nausea vomiting or abdominal pain. No diarrhea no urinary complaints. No headache, dizziness, blurring of vision or seizure activities. His blood work is remarkable for BNP of 5200. His CTA of the chest reported as bibasilar a small area of airspace disease/atelectasis and pleural effusion. Hospital Course Hospital Course: (1) New onset of congestive heart failure Acute systolic heart failure. Denies any history of CAD however states that about 2 weeks ago he had a transient chest pain while [place] the [place] did not seek any medical attention. Troponins negative and proBNP on admission> 6000. Abnormal EKG however no acute changes. 2D echo LVEF 30%, LV systolic function severely reduced. LV apex akinetic. Mid anterior septum mid anterior wall and mid LV septal are also kinetic. Started on cardiac diet, IV diuretics beta-blockers and FORD volume restriction. Had a conversation with Dr. Coronado who stated that he knows the patient's daughter very well, and he did have conversation with both of them in the hospital. He graciously suggested for the patient to follow-up with him as outpatient which patient agreed to. An appointment was made for him to see Dr. Coronado on 04/06/2019. On the day of discharge SPO2 WNL on RA, ambulatory, having normal bowel and bladder movements and euvolemic. He was discharged on discharge on aspirin 81 mg p.o. daily, carvedilol 6.25 mg p.o. twice daily, Lasix 20 mg p.o. twice daily, lisinopril 2.5 mg p.o. daily, Crestor 20 mg p.o. daily. (2) Hyperlipidemia ASCVD score 26.2. Started on high intensity statins. Monitor LFTs. Outpatient PCP follow-up. Appointment with PCP 03/29/2019. (3) Aneurysm of infrarenal abdominal aorta CT scan reported as 4 cm infrarenal abdominal aortic aneurysm. Outpatient PCP follow-up. Appointment with PCP 03/29/2019. Optimized BP. Continue treating hyperlipidemia. Physical Exam Vital Signs: Temp Pulse Resp BP Pulse Ox 98.8 F 78 18 107/70 98 03/23/19 10:17 03/23/19 10:17 03/23/19 10:17 03/23/19 10:17 03/23/19 10:17 General appearance: PRESENT: no acute distress, well-developed, well-nourished Head exam: PRESENT: atraumatic, normocephalic Eye exam: PRESENT: conjunctiva pink, EOMI, PERRLA. ABSENT: scleral icterus Ear exam: PRESENT: normal external ear exam Mouth exam: PRESENT: moist, tongue midline Neck exam: ABSENT: carotid bruit, JVD, lymphadenopathy, thyromegaly Respiratory exam: PRESENT: clear to auscultation joslyn. ABSENT: rales, rhonchi, wheezes Cardiovascular exam: PRESENT: RRR. ABSENT: diastolic murmur, rubs, systolic murmur Pulses: PRESENT: normal dorsalis pedis pul Vascular exam: PRESENT: normal capillary refill GI/Abdominal exam: PRESENT: normal bowel sounds, soft. ABSENT: distended, guard ing, mass, organolmegaly, rebound, tenderness Rectal exam: PRESENT: deferred Extremities exam: PRESENT: full ROM. ABSENT: calf tenderness, clubbing, pedal edema Neurological exam: PRESENT: alert, awake, oriented to person, oriented to place, oriented to time, oriented to situation, CN II-XII grossly intact. ABSENT: motor sensory deficit Psychiatric exam: PRESENT: appropriate affect, normal mood. ABSENT: homicidal ideation, suicidal ideation Skin exam: PRESENT: dry, intact, warm. ABSENT: cyanosis, rash Results Laboratory Results: 03/23/19 04:49 03/23/19 04:49 03/20/19 11:48 NT-Pro-B Natriuret Pep 5200 H Impressions: Chest X-Ray 03/20/19 11:08 IMPRESSION: COPD. NO ACUTE RADIOGRAPHIC FINDING IN THE CHEST. Chest/Abdomen CTA 03/20/19 13:07 IMPRESSION: Bibasilar small areas of airspace disease-atelectasis and pleural effusions. No emboli visualized in the main pulmonary arteries. Contrast bolus timing prevents evaluation of the segmental branches. 4 cm infrarenal abdominal aortic aneurysm. Limited exam. Qualifiers - * PATIENT BEING DISCHARGED WITH ANY OF THE FOLLOWING DIAGNOSIS: No Acute Heart Failure - Is this a Heart Failure Patient?: Yes Documentation of LVEF assessment?: Yes LVEF < 40%?: Yes-if yes answer questions a through e a) Discharged on ACEI?: Yes b) Discharges on ARB?: N/A-Discharged on ARNI c) Discharged on ARNI?: Yes Reason(s) not discharged on ARNI: ACEI use within the prior 36 hours d) Discharged on evidence-based Beta deandra(carvedilol, sustained release metoprolol succinate, or bisoprolol)?: Yes e) For LVEF <35%, discharged on Aldosterone antagonist?: Yes
== END 2019-03-23 10:55 | disposition home or self-care (01) | DRG 293 ==
LOC: ER 08:40 → EH 17:49 → 4N 18:46
PROVIDERS: ADMIT Internal Medicine; ATTEND Internal Medicine
DX: I50.21 Acute systolic (congestive) heart failure (principal); Z88.0 Allergy status to penicillin; I71.4 Abdominal aortic aneurysm, without rupture; E78.5 Hyperlipidemia, unspecified
CPT/HCPCS: 36415; 71046; 71275; 80048; 80053; 80061; 81001; 83036; 83735; 83880; 84443; 85025; 93005; 93010; 93306; 99285; J1940; J2405; J3490

== ENCOUNTER 2019-10-10 10:01 | Inpatient (IN) | payer OTHER, MEDICARE ==
--- NOTE | 2019-10-10 10:45 | ER Document Report ---
ED Medical Screen (RME) - General Chief Complaint: Breathing Difficulty Stated Complaint: DIFFICULTY BREATHING Time Seen by Provider: 10/10/19 10:32 Primary Care Provider: RAFITA ROBINS MD [Primary Care Provider] - Follow up as needed Mode of Arrival: Ambulatory Information source: Patient Notes: 78-year-old male with history of CHF presenting to the emergency department chief complaint of shortness of breath. Patient reports over the last several weeks he has had increasing shortness of breath. He states he has been taking more than his usual dose of Lasix however he still has shortness of breath and a lot of peripheral edema. Patient is speaking in full and complete sentences, no obvious respiratory distress noted. Patient does have 3+ pitting edema to his bilateral lower extremities. I have greeted and performed a rapid initial assessment of this patient. A comprehensive ED assessment and evaluation of the patient, analysis of test results and completion of the medical decision making process will be conducted by additional ED providers. I have specifically instructed the patient or family members with the patient to immediately return to any nursing staff should anything change in the patient's condition or with their chief complaint. TRAVEL OUTSIDE OF THE [place] IN LAST 30 DAYS: No - Related Data Allergies/Adverse Reactions: Penicillins Allergy (Verified 10/10/19 10:37) Past Medical History - Past Medical History Cardiac Medical History: Reports: Hx Pulmonary Embolism Renal/ Medical History: Denies: Hx Peritoneal Dialysis Past Surgical History: Reports: Hx Abdominal Surgery Physical Exam - Vital signs Vitals: Pulse Resp BP Pulse Ox 88 20 116/82 100 10/10/19 10:31 10/10/19 10:31 10/10/19 10:31 10/10/19 10:31 Course - Vital Signs Vital signs: Temp Pulse Resp BP Pulse Ox 88 20 116/82 100 10/10/19 10:31 10/10/19 10:31 10/10/19 10:31 10/10/19 10:31 Doctor's Discharge - Discharge Referrals: RAFITA ROBINS MD [Primary Care Provider] - Follow up as needed
--- NOTE | 2019-10-10 11:26 | EKG REPORT ---
SEVERITY:- ABNORMAL ECG - SINUS RHYTHM VENTRICULAR PREMATURE COMPLEX RBBB AND LPFB BORDERLINE INFERIOR Q WAVES ANTEROLATERAL INFARCT, RECENT : Confirmed by: Mari Coronado MD 10-Oct-2019 11:25:44
[2019-10-10 11:30] LABS: ABSOLUTE BASOPHILS # (AUTO) 0.1 10^3/uL (0.0-0.2); ABSOLUTE EOSINOPHILS # (AUTO) 0.1 10^3/uL (0.0-0.6); ABSOLUTE LYMPHOCYTES (AUTO) 1.4 10^3/uL (0.5-4.7); ABSOLUTE MONOCYTES (AUTO) 0.5 10^3/uL (0.1-1.4); ABSOLUTE NEUT (AUTO) 3.7 10^3/uL (1.7-8.2); BASOPHILS % (AUTO) 0.9 % (0-2); EOSINOPHILS % (AUTO) 1.4 % (0-6); HEMATOCRIT 45.4 % (37.9-51.0); LYMPHOCYTES % (AUTO) 24.2 % (13-45); MEAN CORPUSCULAR HEMOGLOBIN 29.6 pg (27.0-33.4); MEAN CORPUSCULAR HGB CONC 33.1 g/dL (32.0-36.0); MEAN CORPUSCULAR VOLUME 90 fl (80-97); MONOCYTES % (AUTO) 9.5 % (3-13); RED BLOOD COUNT 5.07 10^6/uL (4.35-5.55); TOTAL CELLS COUNTED % (AUTO) 100 %; WHITE BLOOD COUNT 5.7 10^3/uL (4.0-10.5)
[2019-10-10 11:38] LABS: APPEARANCE,URINE SLIGHTLY-CLOUDY; BILIRUBIN,URINE NEGATIVE (NEGATIVE); COLOR,URINE YELLOW; GLUCOSE, URINE NEGATIVE (NEGATIVE); KETONES,URINE NEGATIVE (NEGATIVE); LEUKOCYTE ESTERASE,URINE NEGATIVE (NEGATIVE); NITRITE,URINE NEGATIVE (NEGATIVE); PROTEIN,URINE 100 mg/dL (NEGATIVE); URINE SPECIFIC GRAVITY 1.012
[2019-10-10 11:48] LABS: ALBUMIN 4.3 g/dL (3.5-5.0); ALKALINE PHOSPHATASE 100 U/L (38-126); ANION GAP 13 (5-19); ASPARTATE AMINO TRANSFERASE 61 U/L (17-59); BILIRUBIN,DIRECT 0.7 mg/dL (0.0-0.4); BILIRUBIN,TOTAL 2.1 mg/dL (0.2-1.3); BLOOD UREA NITROGEN 26 mg/dL (7-20); CALCIUM 9.6 mg/dL (8.4-10.2); CARBON DIOXIDE 27 mmol/L (22-30); CHLORIDE 99 mmol/L (98-107); GLUCOSE 105 mg/dL (75-110); POTASSIUM 3.9 mmol/L (3.6-5.0); TOTAL PROTEIN 7.1 g/dL (6.3-8.2)
[2019-10-10 11:54] LABS: PLATELET COUNT 85 10^3/uL (150-450)
[2019-10-10] MEDS ORDERED: REGADENOSON INJ 0.4 MG/5 ML DISP.SYRIN IV ONE (12:00)
--- NOTE | 2019-10-10 12:02 | RADIOLOGY REPORT (SQ) ---
EXAM DESCRIPTION: CHEST 2 VIEWS COMPLETED DATE/TIME: 10/10/2019 11:42 am REASON FOR STUDY: shortness of breath COMPARISON: CT chest 03/20/2019 Two-view chest 03/20/2019 EXAM PARAMETERS: NUMBER OF VIEWS: two views TECHNIQUE: Digital Frontal and Lateral radiographic views of the chest acquired. RADIATION DOSE: NA LIMITATIONS: Artifact from necklace FINDINGS: LUNGS AND PLEURA: Trace bilateral pleural effusions blunt the lateral and posterior costop hrenic sulci. Minimal bibasilar atelectasis is present. No fluffy alveolar infiltrates worrisome for pulmonary ciro ma or pneumonia. No pneumothorax MEDIASTINUM AND HILAR STRUCTURES: No masses or contour abnormalities. HEART AND VASCULAR STRUCTURES: Moderate cardiomegaly is BONES: No acute findings. HARDWARE: None in the chest. OTHER: Calcified abdominal aorta with aneurysm, at the bottom edge of the field of view. IMPRESSION: Trace bilateral pleural effusions Minimal bibasilar atelectasis Calcific rim of infrarenal abdominal aortic aneurysm at the bottom edge of the field of view TECHNICAL DOCUMENTATION: JOB ID: [id number] [employer]- All Rights Reserved Reading location - IP/workstation name: [email or web address]
[2019-10-10 12:06] LABS: TROPONIN I 0.138 ng/mL
[2019-10-10] MEDS ORDERED: FUROSEMIDE INJ/PF 40 MG/4 ML SDV IV ONE (12:17)
[2019-10-10] MEDS ORDERED: ENOXAPARIN SODIUM INJ 80 MG/0.8 ML DISP.SYRIN SUBCUT ONE (13:03)
--- NOTE | 2019-10-10 13:05 | ER Document Report ---
ED General - General Chief Complaint: Shortness Of Breath Stated Complaint: DIFFICULTY BREATHING Time Seen by Provider: 10/10/19 10:32 Primary Care Provider: RAFITA ROBINS MD [ACTIVE STAFF] - Follow up as needed Mode of Arrival: Ambulatory Notes: 78-year-old male presents the emergency department complaining of increasing shortness of breath for the past 3 weeks but acutely worsening over the past several days associated with increasing dyspnea on exertion and decreased exercise tolerance. Patient states that after walking 15 feet he becomes acutely short of breath. Patient is also complaining of increasing fluid retention. States he saw his primary care physician Dr. Feliciano Alonso yesterday and was started on 40 mg of Lasix. States this has not yet helped. Patient states that in July he was diagnosed with a "leaky tricuspid valve" and was started on carvedilol. Patient thinks most of his problems have started because of his carvedilol use. Denies history of heart attacks or strokes. Acknowledges a history of prior fluid retention but does not know for certain if he has ever been formally diagnosed with congestive heart failure. TRAVEL OUTSIDE OF THE [place] IN LAST 30 DAYS: No - Related Data Allergies/Adverse Reactions: Penicillins Allergy (Verified 10/10/19 10:37) Home Medications: lasix, carvedilol, plavix Past Medical History - General Information source: Patient - Social History Smoking Status: Former Smoker Chew tobacco use (# tins/day): No Frequency of alcohol use: Occasional Drug Abuse: None Family History: Reviewed & Not Pertinent Patient has suicidal ideation: No Patient has homicidal ideation: No - Past Medical History Cardiac Medical History: Reports: Hx Pulmonary Embolism Renal/ Medical History: Denies: Hx Peritoneal Dialysis Past Surgical History: Reports: Hx Abdominal Surgery Review of Systems - Review of Systems Constitutional: No symptoms reported EENT: No symptoms reported Cardiovascular: See HPI, Dyspnea, Edema Respiratory: See HPI, Short of breath Gastrointestinal: Abdomen distended - Patient complains that his abdomen has swollen and he is retaining fluid. Musculoskeletal: See HPI, Leg swelling, Ankle swelling -: Yes All other systems reviewed and negative Physical Exam - Vital signs Vitals: Pulse Resp BP Pulse Ox 88 20 116/82 100 10/10/19 10:31 10/10/19 10:31 10/10/19 10:31 10/10/19 10:31 Interpretation: Normal - Notes Notes: GENERAL: Alert, interacts well. No acute distress. HEAD: Normocephalic, atraumatic EYES: Pupils equal, round and reactive to light, extraocular movements intact. ENT: Oral mucosa moist, tongue midline. NECK: Full range of motion, supple, trachea midline. LUNGS: Crackles at the bases, no respiratory distress. HEART: Regular rate and rhythm, no murmurs, gallops, rubs. ABDOMEN: Soft, nontender, nondistended, bowel sounds present in all 4 quadrants. EXTREMITIES: Moves all 4 extremities spontaneously, 2+ pitting edema at the level of the feet and ankles, radial and dorsalis pedis pulses 2/4 bilaterally. No cyanosis. NEUROLOGICAL: Alert and oriented x3, normal speech. PSYCH: Normal mood, normal affect. SKIN: Warm, Dry, normal turgor, no rashes or lesions noted. Course - Re-evaluation Re-evalutation: 10/10/19 13:10 EKG shows thrombocytopenia at 85, otherwise unremarkable, CMP shows elevated total and direct bilirubin at 2.1 and 0.7 respectively, troponin positive at 0.138, proBNP markedly elevated at 20,001 100, urinalysis shows moderate blood, likely related to bilirubin, only 9 RBCs. No signs of urinary tract infection. Chest x-ray shows some fluid. EKG is nonischemic. Chest X-Ray 10/10/19 10:47 IMPRESSION: Trace bilateral pleural effusions Minimal bibasilar atelectasis Calcific rim of infrarenal abdominal aortic aneurysm at the bottom edge of the field of view 10/10/19 13:16 Discussed with Michelle Funez nurse practitioner with the hospitalist service who asked that we ambulate the patient to see if he desaturates and then call and discuss patient with Dr. Barr. 10/10/19 13:19 Ms. Funez discussed the patient with her attending and he requested that we add a troponin to make sure that there is not a significant increase that would req uire cardiology consultation and possible transfer to a facility with a higher level of care. 10/10/19 15:36 With ambulation the patient's pulse ox desaturates to 89% on room air when walking 3 rooms down and he has to stop and rest before he can walk back to his bed. Repeat troponin has improved from 0.138 to 0[address] Barr who agrees to admit the patient to his service. - Vital Signs Vital signs: Temp Pulse Resp BP Pulse Ox 88 25 H 121/90 H 99 10/10/19 10:31 10/10/19 15:03 10/10/19 14:06 10/10/19 14:06 - Laboratory Result Diagrams: 10/10/19 11:07 10/10/19 11:07 Laboratory results interpreted by me: 10/10/19 10/10/19 10/10/19 11:07 11:07 11:07 RDW 15.0 H Plt Count 85 L BUN 26 H Total Bilirubin 2.1 H Direct Bilirubin 0.7 H AST 61 H NT-Pro-B Natriuret Pep 56741 H Urine Protein Urine Blood Urine Urobilinogen 10/10/19 11:16 RDW Plt Count BUN Total Bilirubin Direct Bilirubin AST NT-Pro-B Natriuret Pep Urine Protein 100 H Urine Blood MODERATE H Urine Urobilinogen 2.0 H - EKG Interpretation by Me Additional EKG results interpreted by me: 10/10/19 13:10 EKG shows sinus rhythm at a rate of 85, right bundle branch block, left posterior fascicular block, no ST segment elevations or depressions, there are T wave inversions noted in V3 and V4 as well as lead III per my interpretation. Discharge - Discharge Clinical Impression: Acute congestive heart failure Qualifiers: Heart failure type: unspecified Qualified Code(s): I50.9 - Heart failure, unspecified Condition: Fair Disposition: ADMITTED INPATIENT Admitting Provider: Cortney (Hospitalist) Unit Admitted: Medical Floor
[2019-10-10] MEDS ORDERED: PROMETHAZINE HCL INJ 25 MG/1 ML VIAL IV PRN (15:21)
[2019-10-10] MEDS ORDERED: IPRATROPIUM/ALBUTEROL 0.5-2.5 MG/3 ML AMPUL NEB PRN (15:21)
[2019-10-10] MEDS ORDERED: ACETAMINOPHEN 325 MG TABLET PO PRN (15:21)
[2019-10-10] MEDS ORDERED: OXYCODONE-ACETAMINOPHEN 5-325 MG TABLET PO PRN (15:21)
[2019-10-10] MEDS ORDERED: LISINOPRIL 5 MG TABLET PO SCH (16:00)
[2019-10-10] MEDS ORDERED: METOPROLOL TARTRATE 25 MG TABLET PO SCH (16:00)
--- NOTE | 2019-10-10 17:15 | PDOC H&P ---
History of Present Illness Admission Date/PCP: 10/10/19 15:35 KAVITHA JAIN MD History of Present Illness: JARROD PAYNE is a 78 year old male past medical history of CAD, CHF, hyperl ipidemia presenting to ED complaining of worsening shortness of breath for the last 3 weeks associated with dyspnea on exertion, paroxysmal nocturnal dyspnea, orthopnea, and worsening lower extremity edema. Patient denies any chest pain, fever, chills, nausea, vomiting, diarrhea, constipation or any urinary symptoms. 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 Patient has continued taking his Lasix however has noticed that his dyspnea on exertion and lower extremity edema has been worsening. Patient in ED was noted to have severely elevated BNP and mildly elevated troponins with no acute changes on EKG. Hospitalist consulted for admission. Past Medical History Cardiac Medical History: Reports: Pulmonary Embolism Social History Smoking Status: Former Smoker Electronic Cigarette use?: No Frequency of Alcohol Use: Occasional Hx Recreational Drug Use: No Drugs: None Hx Prescription Drug Abuse: No Family History Family History: Reviewed & Not Pertinent Parental Family History Reviewed: Yes Children Family History Reviewed: Yes Sibling(s) Family History Reviewed.: Yes Medication/Allergy Home Medications: Aspirin [Ecotrin 81 mg EC Tablet] 81 mg PO DAILY 30 Days #30 tabec 03/23/19 Furosemide [Lasix 40 mg Tablet] 40 mg PO QAM 10/10/19 Allergies/Adverse Reactions: carvedilol Allergy (Verified 10/10/19 16:02) metoprolol Allergy (Verified 10/10/19 16:02) Penicillins Allergy (Verified 10/10/19 10:37) Physical Exam Vital Signs: Temp Pulse Resp BP Pulse Ox 88 25 H 121/90 H 99 10/10/19 10:31 10/10/19 15:03 10/10/19 14:06 10/10/19 14:06 Intake & Output 10/09/19 10/10/19 10/11/19 06:59 06:59 06:59 Weight 79 kg General appearance: PRESENT: no acute distress, well-developed, well-nourished Head exam: PRESENT: atraumatic, normocephalic Respiratory exam: PRESENT: clear to auscultation joslyn. ABSENT: rales, rhonchi, wheezes Cardiovascular exam: PRESENT: RRR. ABSENT: diastolic murmur, rubs, systolic murmur GI/Abdominal exam: PRESENT: normal bowel sounds, soft. ABSENT: distended, guarding, mass, organolmegaly, rebound, tenderness Extremities exam: PRESENT: +1 edema Neurological exam: PRESENT: alert, awake, oriented to person, oriented to place, oriented to time, oriented to situation, CN II-XII grossly intact. ABSENT: motor sensory deficit Results Laboratory Results: 10/10/19 11:07 10/10/19 11:07 10/10/19 10/10/19 10/10/19 11:07 11:07 11:07 WBC 5.7 RBC 5.07 Hgb 15.0 Hct 45.4 MCV 90 MCH 29.6 MCHC 33.1 RDW 15.0 H Plt Count 85 L Seg Neutrophils % 64.0 Sodium 138.5 Potassium 3.9 Chloride 99 Carbon Dioxide 27 Anion Gap 13 BUN 26 H Creatinine 1.15 Est GFR ( Amer) > 60 Glucose 105 Calcium 9.6 Total Bilirubin 2.1 H AST 61 H Alkaline Phosphatase 100 Total Protein 7.1 Albumin 4.3 TSH 1.88 Urine Color Urine Appearance Urine pH Ur Specific Minerva Urine Protein Urine Glucose (UA) Urine Ketones Urine Blood Urine Nitrite Ur Leukocyte Esterase Urine WBC (Auto) Urine RBC (Auto) 10/10/19 11:16 WBC RBC Hgb Hct MCV MCH MCHC RDW Plt Count Seg Neutrophils % Sodium Potassium Chloride Carbon Dioxide Anion Gap BUN Creatinine Est GFR ( Amer) Glucose Calcium Total Bilirubin AST Alkaline Phosphatase Total Protein Albumin TSH Urine Color YELLOW Urine Appearance SLIGHTLY-CLOUDY Urine pH 5.0 Ur Specific Minerva 1.012 Urine Protein 100 H Urine Glucose (UA) NEGATIVE Urine Ketones NEGATIVE Urine Blood MODERATE H Urine Nitrite NEGATIVE Ur Leukocyte Esterase NEGATIVE Urine WBC (Auto) 1 Urine RBC (Auto) 9 10/10/19 10/10/19 11:07 14:05 Troponin I 0.138 0.133 NT-Pro-B Natriuret Pep 87918 H Impressions: Chest X-Ray 10/10/19 10:47 IMPRESSION: Trace bilateral pleural effusions Minimal bibasilar atelectasis Calcific rim of infrarenal abdominal aortic aneurysm at the bottom edge of the field of view Assessment and Plan - Diagnosis (1) Acute systolic congestive heart failure, NYHA class 2 Is this a current diagnosis for this admission?: Yes Plan: Acute on chronic systolic heart failure. Most likely due to noncompliance. Complaining of dyspnea on exertion, orthopnea, paroxysmal nocturnal dyspnea. No JVD, benign lung examination, 1+ pitting edema bilateral lower extremities. proBNP 21,100, up from 5000 on 03/23/2020. 03/23/2019. 2D echo LVEF 30%. Left ventricular apex akinetic. Mild anterior septal, mid anterior wall akinetic. Rest of left ventricular armstrong are all hypokinetic. Mild tricuspid regurgitation. Admit to telemetry, IV diuretics guided by volume status, daily weights, strict in and out, volume restriction, 2D echo. FORD inhibitors uptitrate as tolerated. Note: Patient refusing to take lisinopril fearing angioedema. Beta-blockers uptitrate as tolerated. Note: Patient refusing to take metoprolol fearing allergic reaction. Will consult cardiology. Likely a candidate for LVAD. Patient was hospitalized at [facility] on 2018. Was diagnosed with severely reduced systolic ejection fraction. Was discharged on lisinopril, carvedilol and Lasix. Patient stopped taking her lisinopril after finding out that his friend had facial swelling while taking lisinopril. He also stopped carvedilol stating that it was making him retain urine and causing flank pain. Note: Patient is not allergic to carvedilol. Patient states that he stopped taking carvedilol because it was making him retain urine and causing flank pain. (2) Elevated troponin Is this a current diagnosis for this admission?: Yes Plan: Likely NSTEMI type II caused by demand mismatch. Denies any anginal symptoms. No acute EKG changes. Admit to telemetry, trend troponins, high intensity statins, antiplatelets, PRN morphine, PRN nitroglycerin. (3) Hypertension Is this a current diagnosis for this admission?: Yes Plan: Normotensive. Continue FORD, beta-blockers and Lasix. Adjust meds as needed. 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 Continue high-dose statins, antiplatelets, FORD, beta-blockers. We will consult cardiology for further recommendation. (5) Hyperlipidemia Is this a current diagnosis for this admission?: Yes Plan: Diet and lifestyle modification recommended. Restart statins. Monitor for LFT elevation.
[2019-10-10] MEDS: LOSARTAN POTASSIUM 25 MG TABLET PO SCH (20:19)
[2019-10-10] MEDS: FAMOTIDINE 20 MG TABLET PO SCH (22:02)
[2019-10-10] MEDS: FUROSEMIDE INJ/PF 40 MG/4 ML SDV IV SCH (22:02)
[2019-10-10] MEDS: ATORVASTATIN CALCIUM 40 MG TABLET PO SCH (22:02)
--- NOTE | 2019-10-10 22:34 | XCELERA REPORT ---
[address] [address] Transthoracic Echocardiogram Report Name: JARROD PAYNE Age: 78 yrs Gender: Male : 1940 Patient Status: Inpatient Patient Location: [address] [place], [place] [id number] Study Date: 10/10/2019 06:20 PM Height: 73 in Weight: 174 lb BSA: 2.0 m2 Procedure: A two-dimensional transthoracic echocardiogram with color flow and Doppler was performed. The study was technically limited with all images being suboptimal in quality. Reason For Study: Acute systolic heart failure Ordering Physician: AKUA YU Performed By: Devika Guzman Interpretation Summary The left ventricle is moderately dilated. There is normal left ventricular wall thickness. LV EF is 20% to 25% Left ventricular systolic function is severely reduced. LV diastolic function could not be adequately assessed. There is severe global hypokinesis of the left ventricle. There is no thrombus. Cannot comment on ASD ,VSD , or PFO. The right ventricle is normal in size and function. The right ventricle is not well visualized secondary to technical limitations The right atrium is normal. The left atrium is moderately dilated. There is mild to moderate mitral annular calcification. There is no evidence of mitral valve prolapse. There is no vegetation seen on the mitral valve. There is no mitral valve stenosis. There is a moderate amount of mitral regurgitation There is no aortic valvular vegetation. There is mild aortic stenosis There is a peak gradient of 16 mm of Hg. The aortic valve is moderately calcified There is a mild to moderate amount of aortic regurgitation There is no tricuspid stenosis. There is a mild to moderate amount of tricuspid regurgitation There is moderate pulmonary hypertension by echo RVSP is 49 to 54 mm of Hg , with RA mean of 10 to 15. There is no pulmonic valvular stenosis. There is a mild amount of pulmonic regurgitation The aortic root is normal size. The inferior vena cava appeared normal and decreased < 50% with respiration (RAP 10-15 mmHg) There is no pericardial effusion. MMode/2D Measurements & Calculations RVDd: 2.1 cm LVIDd: 6.8 cm FS: 11.3 % Ao root diam: 3.4 cm IVSd: 1.1 cm LVIDs: 6.0 cm EDV(Teich): 239.1 ml Ao root area: 9.2 cm2 LVPWd: 0.97 cm ESV(Teich): 182.2 ml LA dimension: 5.1 cm EF(Teich): 23.8 % Doppler Measurements & Calculations MV E max maría elena: MV P1/2t max maría elena: Ao V2 max: AI max maría elena: 85.3 cm/sec 101.8 cm/sec 200.7 cm/sec 357.9 cm/sec MV A max maría elena: MV P1/2t: 47.9 msec Ao max PG: AI max P.5 cm/sec MVA(P1/2t): 4.6 cm2 16.1 mmHg 51.5 mmHg MV E/A: 1.5 MV dec slope: Ao V2 mean: AI dec slope: 157.5 cm/sec 237.3 cm/sec2 622.6 cm/sec2 Ao mean PG: AI P1/2t: MV dec time: 0.15 sec 10.9 mmHg 441.8 msec Ao V2 VTI: 36.1 cm LV V1 max PG: MR max maría elena: PA V2 max: PI end-d maría elena: 1.4 mmHg 402.6 cm/sec 120.8 cm/sec 169.0 cm/sec LV V1 mean PG: MR max P.8 mmHg PA max P.73 mmHg 6.2 mmHg LV V1 max: 59.8 cm/sec LV V1 mean: 39.9 cm/sec LV V1 VTI: 8.6 cm TR max maría elena: AV P1/2t-pr_phl: MV P1/2t-pr_phl: 310.1 cm/sec 458.0 msec 47.9 msec TR max P.5 mmHg Left Ventricle The left ventricle is moderately dilated. There is normal left ventricular wall thickness. LV EF is 20% to 25%. Left ventricular systolic function is severely reduced. LV diastolic function could not be adequately assessed. There is severe global hypokinesis of the left ventricle. There is no thrombus. Cannot comment on ASD ,VSD , or PFO. Right Ventricle The right ventricle is normal in size and function. The right ventricle is not well visualized secondary to technical limitations. Atria The right atrium is normal. The left atrium is moderately dilated. Mitral Valve There is mild to moderate mitral annular calcification. There is no evidence of mitral valve prolapse. There is no vegetation seen on the mitral valve. There is no mitral valve stenosis. There is a moderate amount of mitral regurgitation. Aortic Valve The aortic valve is moderately calcified. There is no aortic valvular vegetation. There is mild aortic stenosis. There is a peak gradient of 16 mm of Hg. There is a mild to moderate amount of aortic regurgitation. Tricuspid Valve There is no tricuspid stenosis. There is a mild to moderate amount of tricuspid regurgitation. There is moderate pulmonary hypertension by echo. RVSP is 49 to 54 mm of Hg , with RA mean of 10 to 15. Pulmonic Valve There is no pulmonic valvular stenosis. There is a mild amount of pulmonic regurgitation. Great Vessels The aortic root is normal size. The inferior vena cava appeared normal and decreased < 50% with respiration (RAP 10-15 mmHg). Effusions There is no pericardial effusion. : AKUA YU Lakshmi
[2019-10-11] MEDS: FAMOTIDINE 20 MG TABLET PO SCH ×2 (09:40→21:32)
[2019-10-11] MEDS: FUROSEMIDE INJ/PF 40 MG/4 ML SDV IV SCH (09:40)
[2019-10-11] MEDS: ENOXAPARIN SODIUM INJ 40 MG/0.4 ML DISP.SYRIN SUBCUT SCH ×2 (09:42→09:43)
[2019-10-11] MEDS ORDERED: ASPIRIN 81 MG TABLET, ENT COATED PO SCH (10:00)
--- NOTE | 2019-10-11 11:53 | PDOC PROGRESS REPORT ---
Subjective Progress Note for:: 10/11/19 Subjective:: JARROD PAYNE is a 78 year old male past medical history of CAD, CHF, hyperlipidemia presenting to ED complaining of worsening shortness of breath for the last 3 weeks associated with dyspnea on exertion, paroxysmal nocturnal dyspnea, orthopnea, and worsening lower extremity edema. Patient denies any chest pain, fever, chills, nausea, vomiting, diarrhea, constipation or any urinary symptoms. 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 Patient has continued taking his Lasix however has noticed that his dyspnea on exertion and lower extremity edema has been worsening. Patient in ED was noted to have severely elevated BNP and mildly elevated troponins with no acute changes on EKG. Hospitalist consulted for admission. 10/11/2019. No acute events overnight. Patient is comfortably sitting in bed no apparent distress, dyspnea on exertion has resolved, denies any fever, chills, nausea, vomiting, diarrhea, constipation or any urinary symptoms. Patient has agreed to take his losartan. Reason For Visit: ACUTE CHF EXACERBATION Physical Exam Vital Signs: Temp Pulse Resp BP Pulse Ox 97.7 F 86 19 105/70 96 10/11/19 07:45 10/11/19 09:44 10/11/19 07:45 10/11/19 09:44 10/11/19 07:45 Intake & Output 10/10/19 10/11/19 10/12/19 06:59 06:59 06:59 Output Total 600 Balance -600 Weight 77.7 kg General appearance: PRESENT: no acute distress, well-developed, well-nourished Head exam: PRESENT: atraumatic, normocephalic Respiratory exam: PRESENT: clear to auscultation joslyn. ABSENT: rales, rhonchi, wheezes Cardiovascular exam: PRESENT: RRR. ABSENT: diastolic murmur, rubs, systolic murmur GI/Abdominal exam: PRESENT: normal bowel sounds, soft. ABSENT: distended, guarding, mass, organolmegaly, rebound, tenderness Neurological exam: PRESENT: alert, awake, oriented to person, oriented to place, oriented to time, oriented to situation, CN II-XII grossly intact. ABSENT: motor sensory deficit Results Laboratory Results: 10/10/19 11:07 10/10/19 11:07 10/10/19 10/10/19 10/10/19 11:07 11:07 11:07 WBC 5.7 RBC 5.07 Hgb 15.0 Hct 45.4 MCV 90 MCH 29.6 MCHC 33.1 RDW 15.0 H Plt Count 85 L Seg Neutrophils % 64.0 Sodium 138.5 Potassium 3.9 Chloride 99 Carbon Dioxide 27 Anion Gap 13 BUN 26 H Creatinine 1.15 Est GFR ( Amer) > 60 Glucose 105 Calcium 9.6 Total Bilirubin 2.1 H AST 61 H Alkaline Phosphatase 100 Total Protein 7.1 Albumin 4.3 TSH 1.88 10/10/19 10/10/19 10/10/19 11:07 14:05 20:45 Troponin I 0.138 0.133 0.161 NT-Pro-B Natriuret Pep [id number] H 10/11/19 02:20 Troponin I 0.156 NT-Pro-B Natriuret Pep Impressions: Chest X-Ray 10/10/19 10:47 IMPRESSION: Trace bilateral pleural effusions Minimal bibasilar atelectasis Calcific rim of infrarenal abdominal aortic aneurysm at the bottom edge of the field of view Assessment and Plan - Diagnosis (1) Acute systolic congestive heart failure, NYHA class 2 Is this a current diagnosis for this admission?: Yes Plan: Improving. Dyspnea on exertion has resolved. Has agreed to take his losartan and Lasix. Acute on chronic systolic heart failure. Most likely due to noncompliance. Complaining of dyspnea on exertion, orthopnea, paroxysmal nocturnal dyspnea. No JVD, benign lung examination, 1+ pitting edema bilateral lower extremities. proBNP 21,100, up from 5000 on 03/23/2020. 03/23/2019. 2D echo LVEF 30%. Left ventricular apex akinetic. Mild anterior septal, mid anterior wall akinetic. Rest of left ventricular armstrong are all hypokinetic. Mild tricuspid regurgitation. Continue telemetry, IV diuretics guided by volume status, daily weights, strict in and out, volume restriction, 2D echo. FORD inhibitors uptitrate as tolerated. Note: Patient refusing to take lisinopril fearing angioedema. Beta-blockers uptitrate as tolerated. Note: Patient refusing to take metoprolol fearing allergic reaction. Likely a candidate for LVAD. Cardiology consulted. Recommendation pending. Patient was hospitalized at [facility] on 2019. Was diagnosed with severely reduced systolic ejection fraction. Was discharged on lisinopril, carvedilol and Lasix. Patient stopped taking her lisinopril after finding out that his friend had facial swelling while taking lisinopril. He also stopped carvedilol stating that it was making him retain urine and causing flank pain. Note: Patient is not allergic to carvedilol. Patient states that he stopped taking carvedilol because it was making him retain urine and causing flank pain. (2) Elevated troponin Is this a current diagnosis for this admission?: Yes Plan: Persistently elevated troponins. Likely NSTEMI type II caused by demand mismatch. Denies any anginal symptoms. No acute EKG changes. Continue telemetry, trend troponins, high intensity statins, antiplatelets, PRN morphine, PRN nitroglycerin. Cardiology consulted. Recommendations pending. (3) Hypertension Is this a current diagnosis for this admission?: Yes Plan: Normotensive. Continue ARB, Lasix. Refusing to take beta-blockers or FORD inhibitors. Adjust meds as needed. (4) CAD (coronary artery disease) Is this a current diagnosis for this admission?: Yes Plan: Patient denied having any history of CAD based on EKG and 2D echo finding on previous admission patient may have had silent OR. Continue high-dose statins, antiplatelets, FORD, beta-blockers. We will consult cardiology for further recommendation. (5) Hyperlipidemia Is this a current diagnosis for this admission?: Yes Plan: Diet and lifestyle modification recommended. Restart statins. Monitor for LFT elevation.
[2019-10-11] MEDS: LOSARTAN POTASSIUM 25 MG TABLET PO SCH (17:52)
--- NOTE | 2019-10-11 19:44 | PDOC CONSULTATION ---
Consultation-Blank Consultation: CARDIOLOGY CONSULTATION by Dr. Mari Coronado on 10/11/2019. Patient seen at 5:30 PM. 60 minutes spent with patient with more than 50% time spent in direct patient care. REASON FOR CONSULTATION: Management of acute on chronic left ventricular systolic heart failure. CONSULT REQUESTING PHYSICIAN: Dr. Ordaz, hospitalist physician group. HISTORY OF PRESENT ILLNESS: Patient is a pleasant [age]-year-old male with known history of cardiomyopathy who was admitted in February 2019 with acute shortness of breath and was diagnosed with cardiomyopathy with severely reduced LV ejection fraction. He was discharged on aspirin, Lasix, Coreg and lisinopril. The patient stopped taking his lisinopril since 1 of his friends had angioedema with it. This scared the patient and he stopped taking it. Also he states that his Coreg gave him urinary retention and flank pain and since he stopped taking it. The only medication he was taking was Lasix. Since the last 3 to 4 weeks the patient has been having progressively increasing shortness of breath with rest shortness of breath. He also has PND orthopnea. No chest pains. He denies any palpitations. There is no near syncope or syncope. He also has had increasing leg edema. With current treatment he feels better. His blood pressure is low and hence he is not been on any medication and only apart from Lasix he is on DVT prophylaxis with Lovenox and aspirin and also he is on small dose of Cozaar 12.5 mg p.o. daily. The patient's echocardiogram done this admission shows LV ejection fraction is still severely depressed. The patient denies any history of SC or coronary artery disease. He has not had a stress test. He was lost to follow-up after February 2019. The patient does have indications for referring for AICD placement. But he needs a stress test to make sure that the patient does not have any reversible ischemia in the form of obstructive coronary artery disease. Past Medical History Cardiac Medical History: Reports: Pulmonary Embolism. The patient denies prior history of coronary artery disease, SC or anginal symptoms. He denies diabetes mellitus. There is no history of asthma or COPD. There is no sick sleep apnea. There is no history of hypertension, he states his blood pressures also is low. There is no history of TIA CVA. There is no history of chronic kidney disease. The patient does have some symptoms of enlarged prostate. He states he has a history of leaky valve and history of depression. Bypass history the patient has an infrarenal abdominal aortic aneurysm. PAST SURGICAL HISTORY: History of abdominal surgery. Social History Smoking Status: Never Smoker - Advance Directive Resuscitation Status: Full Code. The patient's daughter is her surrogate healthcare decision maker. Family History Family History: Reviewed & Not Pertinent Parental Family History Reviewed: Yes Children Family History Reviewed: Yes Sibling(s) Family History Reviewed.: Yes Medication/Allergy Allergies/Adverse Reactions: Penicillins Allergy (Verified 03/20/19 08:45). On further questioning the patient has no definite allergy to Coreg or metoprolol. He has what he thinks is adverse reaction to Coreg. Review of Systems Constitutional: ABSENT: chills, fever(s), headache(s), weight gain, weight loss Eyes: ABSENT: visual disturbances Ears: ABSENT: hearing changes Cardiovascular: PRESENT: dyspnea on exertion PND and orthopnea. Denies chest pain Respiratory: PRESENT: cough this is dry and more like a PND equal. The cough is more when he is lying down and less minutes sitting up. Is dry. There is no hemoptysis. There is no wheezing. Gastrointestinal: ABSENT: abdominal pain, constipation, diarrhea, hematemesis, hematochezia, nausea, vomiting Genitourinary: ABSENT: dysuria, hematuria. No history of chronic kidney disease. Musculoskeletal: ABSENT: joint swelling Integumentary: ABSENT: rash, wounds Neurological: ABSENT: abnormal gait, abnormal speech, confusion, dizziness, focal weakness, syncope Psychiatric: ABSENT: anxiety, depression, homidical ideation, suicidal ideation Endocrine: ABSENT: cold intolerance, heat intolerance, polydipsia, polyuria Hematologic/Lymphatic: ABSENT: easy bleeding, easy bruising PHYSICAL EXAMINATION: The patient is well-built and appears to be well- nourished. At present no acute distress. Selected Entries 10/11/19 10/11/19 16:00 17:00 Temperature 97.8 F Temperature Oral Source Pulse Rate 74 Respiratory 86 H Rate Blood Pressure 99/63 L 108/72 [Right Upper Arm] Blood Pressure 75 84 Mean [Right Upper Arm] Blood Pressure Sitting Position [Right Upper Arm] O2 Sat by Pulse 97 Oximetry Oxygen Delivery Room Air Method ( includes room air) HEAD: Is atraumatic normocephalic. EYES: Pupils are equal round regular reactive to light accommodation. Extraocular movements are normal. There is no conjunctival pallor. There is no scleral icterus. ENT is negative. Neck is supple. There is mild JVD present. Carotids are equal there is no bruit. There is no accessory muscle respiration use. There is no lymphadenopathy. There is no goiter. Trachea central. LUNGS: Shows a few bibasilar rales of CHF. There is no hyperresonance or dullness. On palpation there is no chest wall tenderness. HEART: S1-S2 is heard. There is no S3 gallop. There is no S4 gallop. There is systolic murmur of mitral regurgitation and tricuspid regurgitation present. There is no aortic stenosis murmur. There is no aortic regurgitation murmur. There is no rub. ABDOMEN: Soft there is mild abdominal wall edema. There is NO HEPATOSPLENOMEGALY. BOWEL SOUNDS WELL HEARD. THERE IS NO TENDER AREAS MASSES. Extremities: There is 1-2 minus pedal edema bilaterally leg pulses are difficult to palpate due to edema. Femorals are well felt. There is no femoral bruits. There is no DVT or cellulitis. There is no calf tenderness. There is no cyanosis or clubbing. PRODUCTION ANALYST: The patient is conscious awake alert oriented times with no focal deficits. PSYCHIATRIC: The patient judgment insight are intact his affect is normal. EKG: SINUS RHYTHM [VPC] . VENTRICULAR PREMATURE COMPLEX [RLPFB] . RBBB AND LPFB [IMI3] . BORDERLINE INFERIOR Q WAVES [ALIR] . ANTEROLATERAL INFARCT, RECENT ECHOCARDIOGRAM [10/09/2019) The left ventricle is moderately dilated. There is normal left ventricular wall thickness. LV EF is 20% to 25% Left ventricular systolic function is severely reduced. LV diastolic function could not be adequately assessed. There is severe global hypokinesis of the left ventricle. There is no thrombus. Cannot comment on ASD ,VSD , or PFO. The right ventricle is normal in size and function. The right ventricle is not well visualized secondary to technical limitations The right atrium is normal. The left atrium is moderately dilated. There is mild to moderate mitral annular calcification. There is no evidence of mitral valve prolapse. There is no vegetation seen on the mitral valve. There is no mitral valve stenosis. There is a moderate amount of mitral regurgitation There is no aortic valvular vegetation. There is mild aortic stenosis There is a peak gradient of 16 mm of Hg. The aortic valve is moderately calcified There is a mild to moderate amount of aortic regurgitation There is no tricuspid stenosis. There is a mild to moderate amount of tricuspid regurgitation There is moderate pulmonary hypertension by echo RVSP is 49 to 54 mm of Hg , with RA mean of 10 to 15. There is no pulmonic valvular stenosis. There is a mild amount of pulmonic regurgitation The aortic root is normal size. The inferior vena cava appeared normal and decreased < 50% with respiration (RAP 10-15 mmHg) Labs- Entire Visit 10/10/19 10/10/19 10/10/19 11:07 11:07 11:07 WBC 5.7 RBC 5.07 Hgb 15.0 Hct 45.4 MCV 90 MCH 29.6 MCHC 33.1 RDW 15.0 H Plt Count 85 L Lymph % (Auto) 24.2 Toole % (Auto) 9.5 Eos % (Auto) 1.4 Baso % (Auto) 0.9 Absolute Neuts (auto) 3.7 Absolute Lymphs (auto) 1.4 Absolute Monos (auto) 0.5 Absolute Eos (auto) 0.1 Absolute Basos (auto) 0.1 Seg Neutrophils % 64.0 Sodium 138.5 Potassium 3.9 Chloride 99 Carbon Dioxide 27 Anion Gap 13 BUN 26 H Creatinine 1.15 Est GFR ( Amer) > 60 Est GFR (MDRD) Non-Af > 60 Glucose 105 Calcium 9.6 Total Bilirubin 2.1 H Direct Bilirubin 0.7 H Neonat Total Bilirubin Not Reportable Neonat Direct Bilirubin Not Reportable Neonat Indirect Bili Not Reportable AST 61 H ALT 32 Alkaline Phosphatase 100 Troponin I 0.138 NT-Pro-B Natriuret Pep 61687 H Total Protein 7.1 Albumin 4.3 TSH Urine Color Urine Appearance Urine pH Ur Specific [place] Urine Protein Urine Glucose (UA) Urine Ketones Urine Blood Urine Nitrite Urine Bilirubin Urine Urobilinogen Ur Leukocyte Esterase Urine WBC (Auto) Urine RBC (Auto) U Hyaline Cast (Auto) Squamous Epi Cells Auto Urine Mucus (Auto) Urine Ascorbic Acid 10/10/19 10/10/19 10/10/19 11:07 11:16 14:05 WBC RBC Hgb Hct MCV MCH MCHC RDW Plt Count Lymph % (Auto) Toole % (Auto) Eos % (Auto) Baso % (Auto) Absolute Neuts (auto) Absolute Lymphs (auto) Absolute Monos (auto) Absolute Eos (auto) Absolute Basos (auto) Seg Neutrophils % Sodium Potassium Chloride Carbon Dioxide Anion Gap BUN Creatinine Est GFR ( Amer) Est GFR (MDRD) Non-Af Glucose Calcium Total Bilirubin Direct Bilirubin Neonat Total Bilirubin Neonat Direct Bilirubin Neonat Indirect Bili AST ALT Alkaline Phosphatase Troponin I 0.133 NT-Pro-B Natriuret Pep Total Protein Albumin TSH 1.88 Urine Color YELLOW Urine Appearance SLIGHTLY-CLOUDY Urine pH 5.0 Ur Specific [place] 1.012 Urine Protein 100 H Urine Glucose (UA) NEGATIVE Urine Ketones NEGATIVE Urine Blood MODERATE H Urine Nitrite NEGATIVE Urine Bilirubin NEGATIVE Urine Urobilinogen 2.0 H Ur Leukocyte Esterase NEGATIVE Urine WBC (Auto) 1 Urine RBC (Auto) 9 U Hyaline Cast (Auto) 91 Squamous Epi Cells Auto <1 Urine Mucus (Auto) OCC Urine Ascorbic Acid NEGATIVE 10/10/19 10/11/19 20:45 02:20 WBC RBC Hgb Hct MCV MCH MCHC RDW Plt Count Lymph % (Auto) Toole % (Auto) Eos % (Auto) Baso % (Auto) Absolute Neuts (auto) Absolute Lymphs (auto) Absolute Monos (auto) Absolute Eos (auto) Absolute Basos (auto) Seg Neutrophils % Sodium Potassium Chloride Carbon Dioxide Anion Gap BUN Creatinine Est GFR ( Amer) Est GFR (MDRD) Non-Af Glucose Calcium Total Bilirubin Direct Bilirubin Neonat Total Bilirubin Neonat Direct Bilirubin Neonat Indirect Bili AST ALT Alkaline Phosphatase Troponin I 0.161 0.156 NT-Pro-B Natriuret Pep Total Protein Albumin TSH Urine Color Urine Appearance Urine pH Ur Specific [place] Urine Protein Urine Glucose (UA) Urine Ketones Urine Blood Urine Nitrite Urine Bilirubin Urine Urobilinogen Ur Leukocyte Esterase Urine WBC (Auto) Urine RBC (Auto) U Hyaline Cast (Auto) Squamous Epi Cells Auto Urine Mucus (Auto) Urine Ascorbic Acid Chest X-Ray 10/10/19 10:47 IMPRESSION: Trace bilateral pleural effusions Minimal bibasilar atelectasis Calcific rim of infrarenal abdominal aortic aneurysm at the bottom edge of the field of view IMPRESSION/RECOMMENDATION: 1. Acute on chronic systolic heart failure. In view of the patient's blood pressure being low we will start the patient on Midrin. Will start the patient on Toprol-XL 25 mg p.o. daily and increase as tolerated. We will increase the patient's Cozaar to 25 mg every afternoon and increase as tolerated. Continue IV diuretics for now. 2. Cardiomyopathy with severely reduced LV ejection fraction. 3. Peripheral vascular disease with history of intra-abdominal aortic aneurysm as per admission of 03/15. 4. Need to assess for underlying coronary artery disease. 5. Bifascicular block. Once the heart failure is compensated then would recommend that the patient have IV Lexiscan Cardiolite stress test. Prior to referring him for AICD placement. Discussed with the patient and the hospitalist attending physician. Medications reviewed. Medications adjusted. Medical regimen and management plan discussed with attending physician on the case. Medical decision making is of high complexity. 60 minutes spent as patient with more than 50% time spent in direct patient care. Will follow.
[2019-10-11] MEDS ORDERED: LOSARTAN POTASSIUM 25 MG TABLET PO ONE (20:15)
[2019-10-11] MEDS ORDERED: LOSARTAN POTASSIUM 25 MG TABLET PO SCH (20:15)
[2019-10-11] MEDS: ATORVASTATIN CALCIUM 40 MG TABLET PO SCH (21:32)
[2019-10-12] MEDS: ENOXAPARIN SODIUM INJ 40 MG/0.4 ML DISP.SYRIN SUBCUT SCH (09:54)
[2019-10-12] MEDS: MIDODRINE HCL 5 MG TABLET PO SCH ×3 (09:58→17:49)
[2019-10-12] MEDS: ASPIRIN 81 MG TABLET, ENT COATED PO SCH (09:58)
[2019-10-12] MEDS: FAMOTIDINE 20 MG TABLET PO SCH ×2 (09:59→23:37)
[2019-10-12] MEDS: FUROSEMIDE 20 MG TABLET PO SCH (10:00)
[2019-10-12] MEDS ORDERED: PROMETHAZINE HCL INJ 25 MG/1 ML VIAL IV PRN (10:00)
--- NOTE | 2019-10-12 11:25 | PDOC PROGRESS REPORT ---
Subjective Progress Note for:: 10/12/19 Subjective:: JARROD PAYNE is a 78 year old male past medical history of CAD, CHF, hyperlipidemia presenting to ED complaining of worsening shortness of breath for the last 3 weeks associated with dyspnea on exertion, paroxysmal nocturnal dyspnea, orthopnea, and worsening lower extremity edema. Patient denies any chest pain, fever, chills, nausea, vomiting, diarrhea, constipation or any urinary symptoms. Patient was admitted at [facility] on 02/2019 for similar symptoms, cardiology was consulted and patient was diagnosed with acute systolic heart failure, patient was discharged on lisinopril, Lasix and carvedilol and was asked to follow-up with his hospital nurse patient Patient is stating that he stopped taking his lisinopril after finding out that it had caused facial swelling and his friend and also stopped taking carvedilol as it was causing urinary retention and flank pain. Patient has continued taking his Lasix however has noticed that his dyspnea on exertion and lower extremity edema has been worsening. Patient in ED was noted to have severely elevated BNP and mildly elevated troponins with no acute changes on EKG. Hospitalist consulted for admission. 10/11/2019. No acute events overnight. Patient is comfortably sitting in bed no apparent distress, dyspnea on exertion has resolved, denies any fever, chills, nausea, vomiting, diarrhea, constipation or any urinary symptoms. Patient has agreed to take his losartan. 10/12/2019. No acute events overnight. Patient has agreed to take his losartan, as per cardiology recommendation patient needs to be started on Midodrin and Toprol-XL. I have asked if patient is truly allergic to metoprolol he stating that he is not allergic to it he but the reason he says he is allergic to it because it is related to carvedilol and he did not have good experience with carvedilol. Patient has agreed to take Toprol-XL today. Dyspnea on exertion and lower extremity edema has improved. Reason For Visit: ACUTE CHF EXACERBATION Physical Exam Vital Signs: Temp Pulse Resp BP Pulse Ox 97.6 F 103 H 18 116/99 H 99 10/12/19 08:27 10/12/19 08:27 10/12/19 08:27 10/12/19 08:27 10/12/19 08:27 Intake & Output 10/11/19 10/12/19 10/13/19 06:59 06:59 06:59 Intake Total 1180 Output Total 600 1250 Balance -600 -70 Weight 77.7 kg 79 kg General appearance: PRESENT: no acute distress, well-developed, well-nourished Head exam: PRESENT: atraumatic, normocephalic Respiratory exam: PRESENT: clear to auscultation joslyn. ABSENT: rales, rhonchi, wheezes Cardiovascular exam: PRESENT: RRR. ABSENT: diastolic murmur, rubs, systolic murmur GI/Abdominal exam: PRESENT: normal bowel sounds, soft. ABSENT: distended, guarding, mass, organolmegaly, rebound, tenderness Extremities exam: PRESENT: pedal edema - Trace Neurological exam: PRESENT: alert, awake, oriented to person, oriented to place, oriented to time, oriented to situation, CN II-XII grossly intact. ABSENT: motor sensory deficit Results Laboratory Results: 10/10/19 11:07 10/10/19 11:07 10/10/19 10/10/19 10/10/19 11:07 14:05 20:45 Troponin I 0.138 0.133 0.161 NT-Pro-B Natriuret Pep 65128 H 10/11/19 02:20 Troponin I 0.156 NT-Pro-B Natriuret Pep Impressions: Chest X-Ray 10/10/19 10:47 IMPRESSION: Trace bilateral pleural effusions Minimal bibasilar atelectasis Calcific rim of infrarenal abdominal aortic aneurysm at the bottom edge of the field of view Assessment and Plan - Diagnosis (1) Acute systolic congestive heart failure, NYHA class 2 Is this a current diagnosis for this admission?: Yes Plan: Improving. Dyspnea on exertion has resolved. Trace bilateral lower extremity edema. Has agreed to take his losartan, Lasix and metoprolol. Acute on chronic systolic heart failure. Most likely due to noncompliance. Complaining of dyspnea on exertion, orthopnea, paroxysmal nocturnal dyspnea. No JVD, benign lung examination, 1+ pitting edema bilateral lower extremities. proBNP 21,100, up from 5000 on 03/23/2020. 03/23/2019. 2D echo LVEF 30%. Left ventricular apex akinetic. Mild anterior septal, mid anterior wall akinetic. Rest of left ventricular armstrong are all hypokinetic. Mild tricuspid regurgitation. Continue telemetry, IV diuretics guided by volume status, daily weights, strict in and out, volume restriction, 2D echo. FORD inhibitors uptitrate as tolerated. Note: Patient refusing to take lisinopril fearing angioedema. Beta-blockers uptitrate as tolerated. Note: Patient refusing to take metoprolol fearing allergic reaction. Likely a candidate for LVAD. Cardiology consulted. Recommendations are to start patient on beta heart rate, losartan, metoprolol, IV Lasix and possible outpatient stress test to rule out any reversible ischemia before undergoing LVAD placement. Patient was hospitalized at [facility] on 2019. Was diagnosed with severely reduced systolic ejection fraction. Was discharged on lisinopril, carvedilol and Lasix. Patient stopped taking her lisinopril after finding out that his friend had facial swelling while taking lisinopril. He also stopped carvedilol stating that it was making him retain urine and causing flank pain. Note: Patient is not allergic to carvedilol. Patient states that he stopped taking carvedilol because it was making him retain urine and causing flank pain. (2) Elevated troponin Is this a current diagnosis for this admission?: Yes Plan: Persistently elevated troponins. Likely NSTEMI type II caused by demand mismatch. Denies any anginal symptoms. No acute EKG changes. Continue telemetry, trend troponins, high intensity statins, antiplatelets, PRN morphine, PRN nitroglycerin. Cardiology consulted. Recommendations pending. (3) Hypertension Is this a current diagnosis for this admission?: Yes Plan: Normotensive. Continue ARB, Lasix. Refusing to take beta-blockers or FORD inhibitors. Adjust meds as needed. (4) CAD (coronary artery disease) Is this a current diagnosis for this admission?: Yes Plan: Patient denied having any history of CAD based on EKG and 2D echo finding on previous admission patient may have had silent MD. Continue high-dose statins, antiplatelets, FORD, beta-blockers. We will consult cardiology for further recommendation. (5) Hyperlipidemia Is this a current diagnosis for this admission?: Yes Plan: Diet and lifestyle modification recommended. Restart statins. Monitor for LFT elevation.
[2019-10-12] MEDS ORDERED: METOPROLOL SUCCINATE 25 MG TAB.SR.24H PO SCH (12:00)
[2019-10-12] MEDS: LOSARTAN POTASSIUM 25 MG TABLET PO SCH (17:49)
--- NOTE | 2019-10-12 19:08 | Progress Note ---
Provider Note Provider Note: CARDIOLOGY PROGRESS NOTE by Dr. Mari Coronado on 10/12/2019. SUBJECTIVE: The patient denies any chest pain or discomfort. He still has some degree of orthopnea. There is no PND. There is no palpitations. There is no arrhythmia seen on the monitor. His leg edema is much improved and the patient's shortness of breath is also greatly improved. He has no anginal symptoms. There is no TIA CVA symptoms. On further questioning again the patient denies any history of coronary artery disease PR or anginal symptoms. PHYSICAL EXAMINATION: The patient is well-built and well-nourished. In no acute distress. Selected Entries 10/12/19 11:41 Temperature 97.8 F Temperature Oral Source Pulse Rate 81 Respiratory 21 H Rate Blood Pressure 97/69 L Blood Pressure 78 Mean BP Location Left Arm BP Position Supine O2 Sat by Pulse 97 Oximetry Oxygen Delivery Room Air Method HEAD: Is atraumatic normocephalic. EYES: Pupils are equal round regular reactive to light accommodation. Extraocular movements are normal. There is no conjunctival pallor. There is no scleral icterus. ENT is negative. Neck is supple. There is mild JVD present. Carotids are equal there is no bruit. There is no accessory muscle respiration use. There is no lymphadenopathy. There is no goiter. Trachea central. LUNGS: Shows a few bibasilar rales of CHF. There is no hyperresonance or dullness. On palpation there is no chest wall tenderness. HEART: S1-S2 is heard. There is no S3 gallop. There is no S4 gallop. There is systolic murmur of mitral regurgitation and tricuspid regurgitation present. There is no aortic stenosis murmur. There is no aortic regurgitation murmur. There is no rub. ABDOMEN: Soft there is mild abdominal wall edema. There is NO HEPATOSPLENOMEGALY. BOWEL SOUNDS WELL HEARD. THERE IS NO TENDER AREAS MASSES. Extremities: There is 1-2 minus pedal edema bilaterally leg pulses are difficult to palpate due to edema. Femorals are well felt. There is no femoral bruits. There is no DVT or cellulitis. There is no calf tenderness. There is no cyanosis or clubbing. SYSTEMS QA ANALYST: The patient is conscious awake alert oriented times with no focal deficits. PSYCHIATRIC: The patient judgment insight are intact his affect is normal. Labs- All tests 24 hr 10/10/19 10/12/19 10/12/19 11:07 08:22 10:31 POC Glucose 144 H 99 Hemoglobin A1c % 6.1 H The patient's 24-hour intake is 1180 mL. 24-hour total output is 1250 mL. Chest X-Ray 10/10/19 10:47 IMPRESSION: Trace bilateral pleural effusions Minimal bibasilar atelectasis Calcific rim of infrarenal abdominal aortic aneurysm at the bottom edge of the field of view IMPRESSION/RECOMMENDATION: 1. Acute on chronic systolic heart failure. After starting the patient on midodrine the patient's blood pressure still marginally low but able to tolerate Toprol-XL and Cozaar. Will increase the Cozaar to 25 mg p.o. every 12 hours. 2. Cardiomyopathy with severely reduced LV ejection fraction. 3. Peripheral vascular disease with history of intra-abdominal aortic aneurysm as per admission of 03/15. 4. Need to assess for underlying coronary artery disease. 5. Bifascicular block. Once the patient's congestive heart failure is controlled and the CHF is compensated. We will get a IV Lexiscan Cardiolite stress test to make sure the patient does not have underlying coronary artery disease. Subsequent to this we will refer the patient for a AICD placement. This plan has been discussed with the patient in detail. Vacations reviewed. Medications adjusted and added. Medical regimen and uziel gement plan discussed with the attending provider on the case medical. Any condition making is of high complexity. 40 minutes spent as patient with more than 50% of time spent in direct patient care. Will follow.
[2019-10-12] MEDS: ATORVASTATIN CALCIUM 40 MG TABLET PO SCH (23:37)
[2019-10-13] MEDS: LOSARTAN POTASSIUM 25 MG TABLET PO SCH ×2 (06:02→18:16)
[2019-10-13] MEDS: ENOXAPARIN SODIUM INJ 40 MG/0.4 ML DISP.SYRIN SUBCUT SCH (09:26)
[2019-10-13] MEDS: METOPROLOL SUCCINATE 25 MG TAB.SR.24H PO SCH (09:32)
[2019-10-13] MEDS: MIDODRINE HCL 5 MG TABLET PO SCH ×3 (09:33→18:16)
[2019-10-13] MEDS: FAMOTIDINE 20 MG TABLET PO SCH ×2 (09:34→21:44)
[2019-10-13] MEDS: ASPIRIN 81 MG TABLET, ENT COATED PO SCH (09:34)
[2019-10-13] MEDS: FUROSEMIDE 20 MG TABLET PO SCH ×3 (09:34→18:15)
[2019-10-13] MEDS ORDERED: MIDODRINE HCL 5 MG TABLET PO ONE (10:00)
[2019-10-13] MEDS ORDERED: DOPAMINE HCL/DEXTROSE 5%-WATER 800 MG/250 ML RTUINJ IV PRN (11:44)
[2019-10-13] MEDS ORDERED: IPRATROPIUM/ALBUTEROL 0.5-2.5 MG/3 ML AMPUL NEB SCH (14:00)
[2019-10-13] MEDS: IPRATROPIUM BROMIDE 0.02% NEB 0.5 MG/2.5 ML AMPUL NEB SCH ×2 (14:17→20:48)
--- NOTE | 2019-10-13 15:54 | PDOC PROGRESS REPORT ---
Subjective Progress Note for:: 10/13/19 Subjective:: JARROD PAYNE is a 78 year old male past medical history of CAD, CHF, hyperlipidemia presenting to ED complaining of worsening shortness of breath for the last 3 weeks associated with dyspnea on exertion, paroxysmal nocturnal dyspnea, orthopnea, and worsening lower extremity edema. Patient denies any chest pain, fever, chills, nausea, vomiting, diarrhea, constipation or any urinary symptoms. 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 Patient has continued taking his Lasix however has noticed that his dyspnea on exertion and lower extremity edema has been worsening. Patient in ED was noted to have severely elevated BNP and mildly elevated troponins with no acute changes on EKG. Hospitalist consulted for admission. 10/11/2019. No acute events overnight. Patient is comfortably sitting in bed no apparent distress, dyspnea on exertion has resolved, denies any fever, chills, nausea, vomiting, diarrhea, constipation or any urinary symptoms. Patient has agreed to take his losartan. 10/12/2019. No acute events overnight. Patient has agreed to take his losartan, as per cardiology recommendation patient needs to be started on Midodrin and Toprol-XL. I have asked if patient is truly allergic to metoprolol he stating that he is not allergic to it he but the reason he says he is allergic to it because it is related to carvedilol and he did not have good experience with carvedilol. Patient has agreed to take Toprol-XL today. Dyspnea on exertion and lower extremity edema has improved. 10/13/2019. Patient was noted to be hypotensive with some episodes of dyspnea on exertion, patient was transferred to [facility] to be started on dopamine drip. Otherwise patient alert negative x3, cooperative with physical examination, denies any fever, chills, nausea, vomiting, diarrhea, constipation or any urinary symptoms. P.o. tolerant. Having normal bowel and bladder movements. Reason For Visit: ACUTE CHF EXACERBATION Physical Exam Vital Signs: Temp Pulse Resp BP Pulse Ox 97.3 F 85 16 99/64 L 97 10/13/19 10:54 10/13/19 14:17 10/13/19 14:17 10/13/19 10:54 10/13/19 14:17 Intake & Output 10/12/19 10/13/19 10/14/19 06:59 06:59 06:59 Intake Total 1180 1388 560 Output Total 1250 1300 Balance -70 88 560 Weight 79 kg 78.7 kg General appearance: PRESENT: no acute distress, well-developed, well-nourished Head exam: PRESENT: atraumatic, normocephalic Neck exam: ABSENT: carotid bruit, JVD, lymphadenopathy, thyromegaly Respiratory exam: PRESENT: clear to auscultation joslyn. ABSENT: rales, rhonchi, wheezes Cardiovascular exam: PRESENT: RRR. ABSENT: diastolic murmur, rubs, systolic murmur GI/Abdominal exam: PRESENT: normal bowel sounds, soft. ABSENT: distended, guarding, mass, organolmegaly, rebound, tenderness Neurological exam: PRESENT: alert, awake, oriented to person, oriented to place, oriented to time, oriented to situation, CN II-XII grossly intact. ABSENT: motor sensory deficit Results Laboratory Results: 10/10/19 11:07 10/10/19 11:07 10/10/19 10/10/19 10/10/19 11:07 14:05 20:45 Troponin I 0.138 0.133 0.161 NT-Pro-B Natriuret Pep 62556 H 10/11/19 02:20 Troponin I 0.156 NT-Pro-B Natriuret Pep Impressions: Chest X-Ray 10/10/19 10:47 IMPRESSION: Trace bilateral pleural effusions Minimal bibasilar atelectasis Calcific rim of infrarenal abdominal aortic aneurysm at the bottom edge of the field of view Assessment and Plan - Diagnosis (1) Acute systolic congestive heart failure, NYHA class 2 Is this a current diagnosis for this admission?: Yes Plan: Improving. Complaining of dyspnea on exertion. Trace bilateral lower extremity edema. Has agreed to take his losartan, Lasix and metoprolol. Acute on chronic systolic heart failure. Most likely due to noncompliance. On admission was complaining of dyspnea on exertion, orthopnea, paroxysmal nocturnal dyspnea. On admission no JVD, benign lung examination, 1+ pitting edema bilateral lower extremities. proBNP 21,100, up from 5000 on 03/23/2020. 03/23/2019. 2D echo LVEF 30%. Left ventricular apex akinetic. Mild anterior septal, mid anterior wall akinetic. Rest of left ventricular armstrong are all hypokinetic. Mild tricuspid regurgitation. Continue telemetry, IV diuretics guided by volume status, daily weights, strict in and out, volume restriction, 2D echo. FORD inhibitors uptitrate as tolerated. Note: Patient refusing to take lisinopril fearing angioedema. Beta-blockers uptitrate as tolerated. Note: Patient refusing to take metoprolol fearing allergic reaction. Likely a candidate for LVAD. Cardiology consulted. Recommendations are to start patient on beta heart rate, losartan, metoprolol, IV Lasix and possible outpatient stress test to rule out any reversible ischemia before undergoing LVAD placement. Patient was hospitalized at [facility] on 2018. Was diagnosed with severely reduced systolic ejection fraction. Was discharged on lisinopril, carvedilol and Lasix. Patient stopped taking her lisinopril after finding out that his friend had facial swelling while taking lisinopril. He also stopped carvedilol stating that it was making him retain urine and causing flank pain. Note: Patient is not allergic to carvedilol. Patient states that he stopped taking carvedilol because it was making him retain urine and causing flank pain. (2) Hypotension Qualifiers: Hypotension type: other hypotension type Qualified Code(s): I95.89 - Other hypotension Is this a current diagnosis for this admission?: Yes Plan: This is likely due to severely reduced ejection fraction complicated by resumption of anti-CAD meds. Not a candidate for volume resuscitation due to severe CHF. Transfer to [facility] to be started on dopamine drip. Continue midodrine, Lasix, ARB, beta-blockers. (3) Elevated troponin Is this a current diagnosis for this admission?: Yes Plan: Persistently elevated troponins. Likely NSTEMI type II caused by demand mismatch. Denies any anginal symptoms. No acute EKG changes. Continue telemetry, trend troponins, high intensity statins, antiplatelets, PRN morphine, PRN nitroglycerin. Cardiology consulted. Recommendations pending. (4) Hypertension Is this a current diagnosis for this admission?: Yes Plan: On this admission patient actually noted to be hypotensive. (5) CAD (coronary artery disease) Is this a current diagnosis for this admission?: Yes (6) Hyperlipidemia Is this a current diagnosis for this admission?: Yes
--- NOTE | 2019-10-13 16:07 | Operative Report ---
Nonrecallable Operative Report DATE OF SURGERY: 10/13/19 PREOPERATIVE DIAGNOSIS: chf POSTOPERATIVE DIAGNOSIS: chf OPERATION: right internal jugular line placemnet SURGEON: GOKUL SMALL ANESTHESIA: Local TISSUE REMOVED OR ALTERED: none COMPLICATIONS: none ESTIMATED BLOOD LOSS: 0 INTRAOPERATIVE FINDINGS: see note PROCEDURE: right neck prepped and draped 1% plain lidocaine for anesthesia rt internal jugular vein accessed without ultasound 16guage needle used wire placed through the needle, seldinger tech needle reoved dilator used over wire, then triple lumen catheter placed fixed with 2-0 silk suture accessed obtained on first stick pt agus well cxr pending.
--- NOTE | 2019-10-13 16:41 | RADIOLOGY REPORT (SQ) ---
EXAM DESCRIPTION: CHEST SINGLE VIEW COMPLETED DATE/TIME: 10/13/2019 4:28 pm REASON FOR STUDY: triple alamun cather COMPARISON: PA and lateral views of the chest from 10/10/2019. EXAM PARAMETERS: NUMBER OF VIEWS: One view. TECHNIQUE: An AP view of the chest was obtained. RADIATION DOSE: NA LIMITATIONS: None. FINDINGS: LUNGS AND PLEURA: Stable bibasilar pleural and parenchymal opacities that could represent a combination of pleural fluid and atelectasis. MEDIASTINUM AND HILAR STRUCTURES: Stable mediastinal and hilar contours. HEART AND VASCULAR STRUCTURES: Stable enlarged cardiac silhouette. BONES: No acute findings. HARDWARE: The tip of the right IJ central venous catheter projects within the SVC. OTHER: No other finding. IMPRESSION: The tip of the right IJ central venous catheter projects within the SVC. Otherwise unch anged radiographic appearance of the chest. TECHNICAL DOCUMENTATION: JOB ID: [id number] 2022 [employer]- All Rights Reserved Reading location - IP/workstation name: [email or web address]
[2019-10-13] MEDS: CLONAZEPAM 1 MG TABLET PO SCH (18:17)
[2019-10-13] MEDS: DOBUTAMINE HCL/D5W 500 MG/250 ML RTUINJ IV PRN (21:07)
[2019-10-13] MEDS: ATORVASTATIN CALCIUM 40 MG TABLET PO SCH (21:44)
[2019-10-13] MEDS: FUROSEMIDE INJ/PF 20 MG/2 ML SDV IV SCH (22:32)
--- NOTE | 2019-10-13 22:52 | Progress Note ---
Provider Note Provider Note: CARDIOLOGY PROGRESS NOTE by Dr. Mari Coronado on 10/13/2019. SUBJECTIVE: The patient denies any chest pain or discomfort. There is no PND. He still has some degree of orthopnea. There is no arrhythmia seen on the monitor. The patient's urine output is not impressive. He still feels edema in his legs. He has also generalized weakness. His blood pressure in spite of the Midrin is low. And his Toprol has been held. Also the nurses say that he has episodes of shortness of breath with no arrhythmia seen on the monitor coinciding with the symptoms of shortness of breath which lasted for a few minutes. He also was found to be intermittently mildly confused lasting for a few minutes. There is no focal deficits. This probably is secondary to poor cardiac output. In view of the patient's low blood pressure due to forward pump failure causing low cardiac output, and inability to give the patient Toprol and Cozaar per addition was made to transfer the patient to IMCU unit to start the patient on IV dopamine infusion to get the blood pressure up. This was started at 2 mcg/kg/min. Subsequently the patient was also started on dobutamine at 2.5 mcg/kg/min.. With this the patient's blood pressure is much better. He is tolerating it without any arrhythmias. He note that the dobutamine and dopamine per minute were started after a triple-lumen catheter was placed by the surgical nurse. This I had already discussed with the patient and discussed the risks and benefits of the triple-lumen catheter.. PHYSICAL EXAMINATION: The patient is well-built. He is in no acute distress. Selected Entries 10/13/19 07:29 Temperature 97.6 F Temperature Oral Source Pulse Rate 73 Respiratory 16 Rate Blood Pressure 99/70 L Blood Pressure 79 Mean BP Location Left Arm BP Position Sitting O2 Sat by Pulse 100 Oximetry Oxygen Delivery Room Air Method HEAD: Is atraumatic normocephalic. EYES: Pupils are equal round regular reactive to light accommodation. Extraocular movements are normal. There is no conjunctival pallor. There is no scleral icterus. ENT is negative. Neck is supple. There is mild JVD present. Carotids are equal there is no bruit. There is no accessory muscle respiration use. There is no lymphadenopathy. There is no goiter. Trachea central. LUNGS: Shows a few bibasilar rales of CHF. There is no hyperresonance or dullness. On palpation there is no chest wall tenderness. HEART: S1-S2 is heard. There is no S3 gallop. There is no S4 gallop. There is systolic murmur of mitral regurgitation and tricuspid regurgitation present. There is no aortic stenosis murmur. There is no aortic regurgitation murmur. There is no rub. ABDOMEN: Soft there is mild abdominal wall edema. There is NO HEPATOSPLENOMEGALY. BOWEL SOUNDS WELL HEARD. THERE IS NO TENDER AREAS MASSES. Extremities: There is 1-2 minus pedal edema bilaterally leg pulses are difficult to palpate due to edema. Femorals are well felt. There is no femoral bruits. There is no DVT or cellulitis. There is no calf tenderness. There is no cyanosis or clubbing. INTERIOR DESIGN INSTRUCTOR: The patient is conscious awake alert oriented times with no focal deficits. PSYCHIATRIC: The patient judgment insight are intact his affect is normal. THE patient's total 24-hour intake 1388 mL. His total 24-hour output is 1300 mL. Chest X-Ray 10/10/19 10:47 IMPRESSION: Trace bilateral pleural effusions Minimal bibasilar atelectasis Calcific rim of infrarenal abdominal aortic aneurysm at the bottom edge of the field of view Chest X-Ray 10/13/19 15:56 IMPRESSION: The tip of the right IJ central venous catheter projects within the SVC. Otherwise unchanged radiographic appearance of the chest. IMPRESSION/RECOMMENDATION: 1. HYPER tension: This is secondary to poor cardiac output due to the patient's severe cardiomyopathy. The patient has been transferred to [facility] and a triple- lumen catheter has been placed. We will continue the patient on dopamine to get the patient blood pressure up. 2. Acute on chronic systolic heart failure. After starting the patient on midodrine the patient's blood pressure still low with sometimes blood pressure in the low 80s. Patient with symptoms of episodic shortness of breath and episodic confusion. This is most likely related to his poor cardiac output. Hence we will start the patient on IV dopamine. Subsequent to getting his blood pressure up hopefully will tolerate his beta-deandra and ARB. We will also start the patient on dobutamine since the patient's output is not very good. We will recheck his labs in the morning. Note the blood pressure has been low in spite of the patient's Midrin being increased to 10 mg p.o. 3 times daily. Will also increase the patient's Lasix to 20 mg IV every 8 hours. 3. Cardiomyopathy with severely reduced LV ejection fraction. 4. Peripheral vascular disease with history of intra-abdominal aortic aneurysm as per admission of 03/15. 5. Need to assess for underlying coronary artery disease. 6. Bifascicular block. Medications started. Medical decision making is of high complexity in view of the patient's need for starting inotropes tantamount into critical care. Medica l regimen and management plan discussed with the attending provider on the case. This has been also discussed with the patient with regards to management of his heart failure/cardiomyopathy. 50 minutes spent on this patient with more than 50% time spent in direct patient care. Note the patient was seen on the fourth floor and subsequently after the start of inotropes was also seen in the [facility] [place] [place] te lemetry unit. The patient seems to be tolerating the inotropes well. Will follow. Will check the patient's BMP and magnesium in the a.m.
[2019-10-14] MEDS: CLONAZEPAM 1 MG TABLET PO SCH ×4 (02:18→17:25)
[2019-10-14] MEDS: FUROSEMIDE INJ/PF 20 MG/2 ML SDV IV SCH ×2 (05:30→13:51)
[2019-10-14] MEDS: LOSARTAN POTASSIUM 25 MG TABLET PO SCH ×2 (05:31→17:26)
[2019-10-14 06:23] LABS: ALBUMIN 3.3 g/dL (3.5-5.0); ALKALINE PHOSPHATASE 97 U/L (38-126); ANION GAP 10 (5-19); ASPARTATE AMINO TRANSFERASE 63 U/L (17-59); BILIRUBIN,DIRECT 0.6 mg/dL (0.0-0.4); BILIRUBIN,TOTAL 1.5 mg/dL (0.2-1.3); BLOOD UREA NITROGEN 26 mg/dL (7-20); CARBON DIOXIDE 27 mmol/L (22-30); CHLORIDE 101 mmol/L (98-107); GLUCOSE 84 mg/dL (75-110); POTASSIUM 3.4 mmol/L (3.6-5.0); TOTAL PROTEIN 5.9 g/dL (6.3-8.2)
[2019-10-14] MEDS: IPRATROPIUM BROMIDE 0.02% NEB 0.5 MG/2.5 ML AMPUL NEB SCH ×3 (09:01→20:32)
[2019-10-14] MEDS: ASPIRIN 81 MG TABLET, ENT COATED PO SCH (10:28)
[2019-10-14] MEDS: MIDODRINE HCL 5 MG TABLET PO SCH ×3 (10:28→17:24)
[2019-10-14] MEDS: FAMOTIDINE 20 MG TABLET PO SCH ×2 (10:28→22:10)
[2019-10-14] MEDS: DOPAMINE HCL/DEXTROSE 5%-WATER 800 MG/250 ML RTUINJ IV PRN (10:28)
[2019-10-14] MEDS: ENOXAPARIN SODIUM INJ 40 MG/0.4 ML DISP.SYRIN SUBCUT SCH (10:29)
[2019-10-14] MEDS: METOPROLOL SUCCINATE 25 MG TAB.SR.24H PO SCH (10:29)
[2019-10-14] MEDS ORDERED: POTASSIUM CHLORIDE 10 MEQ TABLET.ER PO ONE (10:45)
--- NOTE | 2019-10-14 10:50 | PDOC PROGRESS REPORT ---
Subjective Progress Note for:: 10/14/19 Subjective:: JARROD PAYNE is a 78 year old male past medical history of CAD, CHF, hyperlipidemia presenting to ED complaining of worsening shortness of breath for the last 3 weeks associated with dyspnea on exertion, paroxysmal nocturnal dyspnea, orthopnea, and worsening lower extremity edema. Patient denies any chest pain, fever, chills, nausea, vomiting, diarrhea, constipation or any urinary symptoms. 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 Patient has continued taking his Lasix however has noticed that his dyspnea on exertion and lower extremity edema has been worsening. Patient in ED was noted to have severely elevated BNP and mildly elevated troponins with no acute changes on EKG. Hospitalist consulted for admission. 10/11/2019. No acute events overnight. Patient is comfortably sitting in bed no apparent distress, dyspnea on exertion has resolved, denies any fever, chills, nausea, vomiting, diarrhea, constipation or any urinary symptoms. Patient has agreed to take his losartan. 10/12/2019. No acute events overnight. Patient has agreed to take his losartan, as per cardiology recommendation patient needs to be started on Midodrin and Toprol-XL. I have asked if patient is truly allergic to metoprolol he stating that he is not allergic to it he but the reason he says he is allergic to it because it is related to carvedilol and he did not have good experience with carvedilol. Patient has agreed to take Toprol-XL today. Dyspnea on exertion and lower extremity edema has improved. 10/13/2019. Patient was noted to be hypotensive with some episodes of dyspnea on exertion, patient was transferred to [facility] to be started on dopamine drip. Otherwise patient alert negative x3, cooperative with physical examination, denies any fever, chills, nausea, vomiting, diarrhea, constipation or any urinary symptoms. P.o. tolerant. Having normal bowel and bladder movements. 10/14/2019. No acute events overnight. Patient comfortably resting in bed no apparent distress, still complaining of mild exertional dyspnea and orthopnea otherwise denies any fever, chills, nausea, vomiting, diarrhea, constipation or any urinary symptoms. Reason For Visit: ACUTE CHF EXACERBATION Physical Exam Vital Signs: Temp Pulse Resp BP Pulse Ox 97.5 F 83 16 99/66 L 93 10/14/19 07:03 10/14/19 09:01 10/14/19 09:01 10/14/19 09:00 10/14/19 09:01 Intake & Output 10/13/19 10/14/19 10/15/19 06:59 06:59 06:59 Intake Total 1388 860 500 Output Total 1300 550 Balance 88 310 500 Weight 78.7 kg 79 kg General appearance: PRESENT: no acute distress, well-developed, well-nourished Head exam: PRESENT: atraumatic, normocephalic Respiratory exam: PRESENT: clear to auscultation joslyn. ABSENT: rales, rhonchi, wheezes Cardiovascular exam: PRESENT: RRR. ABSENT: diastolic murmur, rubs, systolic murmur GI/Abdominal exam: PRESENT: normal bowel sounds, soft. ABSENT: distended, guar ding, mass, organolmegaly, rebound, tenderness Extremities exam: PRESENT: pedal edema Neurological exam: PRESENT: alert, awake, oriented to person, oriented to place, oriented to time, oriented to situation, CN II-XII grossly intact. ABSENT: motor sensory deficit Results Laboratory Results: 10/10/19 11:07 10/14/19 05:05 10/14/19 05:05 Sodium 138.4 Potassium 3.4 L Chloride 101 Carbon Dioxide 27 Anion Gap 10 BUN 26 H Creatinine 0.99 Est GFR ( Amer) > 60 Glucose 84 Calcium 9.0 Total Bilirubin 1.5 H AST 63 H Alkaline Phosphatase 97 Total Protein 5.9 L Albumin 3.3 L 10/10/19 10/10/19 10/10/19 11:07 14:05 20:45 Troponin I 0.138 0.133 0.161 NT-Pro-B Natriuret Pep 06626 H 10/11/19 02:20 Troponin I 0.156 NT-Pro-B Natriuret Pep Impressions: Chest X-Ray 10/13/19 15:56 IMPRESSION: The tip of the right IJ central venous catheter projects within the SVC. Otherwise unchanged radiographic appearance of the chest. Assessment and Plan - Diagnosis (1) Acute systolic congestive heart failure, NYHA class 2 Is this a current diagnosis for this admission?: Yes Plan: Improving. Complaining of dyspnea on exertion. Trace bilateral lower extremity edema. Has agreed to take his losartan, Lasix and metoprolol. Acute on chronic systolic heart failure. Most likely due to noncompliance. On admission was complaining of dyspnea on exertion, orthopnea, paroxysmal nocturnal dyspnea. On admission no JVD, benign lung examination, 1+ pitting edema bilateral lower extremities. proBNP 21,100, up from 5000 on 03/23/2020. 03/23/2019. 2D echo LVEF 30%. Left ventricular apex akinetic. Mild anterior septal, mid anterior wall akinetic. Rest of left ventricular armstrong are all hypokinetic. Mild tricuspid regurgitation. Continue telemetry, IV diuretics guided by volume status, daily weights, strict in and out, volume restriction, 2D echo. FORD inhibitors uptitrate as tolerated. Note: Patient refusing to take lisinopril fearing angioedema. Beta-blockers uptitrate as tolerated. Note: Patient refusing to take metoprolol fearing allergic reaction. Likely a candidate for LVAD. Cardiology consulted. Recommendations are to start patient on beta heart rate, losartan, metoprolol, IV Lasix and possible outpatient stress test to rule out any reversible ischemia before undergoing LVAD placement. Patient was hospitalized at [facility] on 2018. Was diagnosed with severely reduced systolic ejection fraction. Was discharged on lisinopril, carvedilol and Lasix. Patient stopped taking her lisinopril after finding out that his friend had facial swelling while taking lisinopril. He also stopped carvedilol stating that it was making him retain urine and causing flank pain. Note: Patient is not allergic to carvedilol. Patient states that he stopped ta jairo carvedilol because it was making him retain urine and causing flank pain. (2) Hypotension Qualifiers: Hypotension type: other hypotension type Qualified Code(s): I95.89 - Other hypotension Is this a current diagnosis for this admission?: Yes Plan: This is likely due to severely reduced ejection fraction complicated by resumption of anti-CAD meds. Normotensive on dobutamine and dopamine drip. Not a candidate for volume resuscitation due to severe CHF. Continue telemetry, dopamine and dobutamine drip. Continue midodrine, Lasix, ARB, beta-blockers. Cardiology on board. Recommendations noted. (3) Elevated troponin Is this a current diagnosis for this admission?: Yes Plan: Persistently elevated troponins. Likely NSTEMI type II caused by demand mismatch. Denies any anginal symptoms. No acute EKG changes. Continue telemetry, trend troponins, high intensity statins, antiplatelets, PRN morphine, PRN nitroglycerin. Cardiology consulted. Recommendations pending. (4) CAD (coronary artery disease) Is this a current diagnosis for this admission?: Yes Plan: Patient denied having any history of CAD based on EKG and 2D echo finding on previous admission patient may have had silent NV. Continue high-dose statins, antiplatelets, FORD, beta-blockers. We will consult cardiology for further recommendation. (5) Hyperlipidemia Is this a current diagnosis for this admission?: Yes Plan: Diet and lifestyle modification recommended. Restart statins. Monitor for LFT elevation.
[2019-10-14 11:28] LABS: POTASSIUM 3.6 mmol/L (3.6-5.0)
[2019-10-14] MEDS ORDERED: ACETAMINOPHEN 325 MG TABLET PO PRN (13:30)
--- NOTE | 2019-10-14 14:11 | Progress Note ---
Provider Note Provider Note: CARDIOLOGY PROGRESS NOTE by Dr. Mari Coronado on 10/14/2019. SUBJECTIVE: The patient is on dopamine and dobutamine. There is still has some episodes of shortness of breath at rest. No arrhythmias seen. He has no chest pain or discomfort. There is no PND orthopnea. His leg edema is improved. His blood pressure is on the lower side. But is able to tolerate getting his beta- deandra and his FORD inhibitor. There is no TIA CVA symptoms. Physical EXAMINATION: The patient is well-built. In no acute distress. Selected Entries 10/14/19 10/14/19 11:35 12:00 Temperature 97.5 F Temperature Oral Source Pulse Rate 85 Respiratory 17 Rate Blood Pressure 96/62 L Blood Pressure 69 Mean BP Location Left Arm BP Position Supine O2 Sat by Pulse 96 Oximetry Oxygen Delivery Room Air Method HEAD: Is atraumatic normocephalic. EYES: Pupils are equal round regular reactive to light accommodation. Extraocular movements are normal. There is no conjunctival pallor. There is no scleral icterus. ENT is negative. Neck is supple. There is mild JVD present. Carotids are equal there is no bruit. There is no accessory muscle respiration use. There is no lymphadenopathy. There is no goiter. Trachea central. LUNGS: Shows a few bibasilar rales of CHF. There is no hyperresonance or dullness. On palpation there is no chest wall tenderness. HEART: S1-S2 is heard. There is no S3 gallop. There is no S4 gallop. There is systolic murmur of mitral regurgitation and tricuspid regurgitation present. There is no aortic stenosis murmur. There is no aortic regurgitation murmur. There is no rub. ABDOMEN: Soft there is mild abdominal wall edema. There is NO HEPATOSPLENOMEGALY. BOWEL SOUNDS WELL HEARD. THERE IS NO TENDER AREAS MASSES. Extremities: There is 1-2 minus pedal edema bilaterally leg pulses are difficult to palpate due to edema. Femorals are well felt. There is no femoral bruits. There is no DVT or cellulitis. There is no calf tenderness. There is no cyanosis or clubbing. UPPER STITCHER: The patient is conscious awake alert oriented times with no focal deficits. PSYCHIATRIC: The patient judgment insight are intact his affect is normal. THE patient's total 24-hour intake 860 mL. His total 24-hour output is 550 mL. Labs- All tests 24 hr 10/14/19 10/14/19 05:05 10:36 Sodium 138.4 Potassium 3.4 L 3.6 Chloride 101 Carbon Dioxide 27 Anion Gap 10 BUN 26 H Creatinine 0.99 Est GFR ( Amer) > 60 Est GFR (MDRD) Non-Af > 60 Glucose 84 Calcium 9.0 Magnesium 2.2 Total Bilirubin 1.5 H Direct Bilirubin 0.6 H Neonat Total Bilirubin Not Reportable Neonat Direct Bilirubin Not Reportable Neonat Indirect Bili Not Reportable AST 63 H ALT 48 Alkaline Phosphatase 97 Total Protein 5.9 L Albumin 3.3 L Chest X-Ray 10/10/19 10:47 IMPRESSION: Trace bilateral pleural effusions Minimal bibasilar atelectasis Calcific rim of infrarenal abdominal aortic aneurysm at the bottom edge of the field of view Chest X-Ray 10/13/19 15:56 IMPRESSION: The tip of the right IJ central venous catheter projects within the SVC. Otherwise unchanged radiographic appearance of the chest. IMPRESSION/RECOMMENDATION: 1. Relative Hypotension: This is secondary to poor cardiac output due to the patient's severe cardiomyopathy. The patient has been transferred to [facility] and a triple-lumen catheter has been placed. We will continue the patient on dopamine to get the patient blood pressure up. Also the patient has been started on dobutamine at 2.5 mcg/kg/min. 2. Acute on chronic systolic heart failure. After starting the patient on midodrine the patient's blood pressure still low with sometimes blood pressure in the low 80s. Patient with symptoms of episodic shortness of breath and episodic confusion. This is most likely related to his poor cardiac output. Hence we will start the patient on IV dopamine. Subsequent to getting his blood pressure up hopefully will tolerate his beta-deandra and ARB. We will also start the patient on dobutamine since the patient's output is not very good. We will recheck his labs in the morning. Note the blood pressure has been low in spite of the patient's Midrin being increased to 10 mg p.o. 3 times daily. Will also increase the patient's Lasix to 20 mg IV every 8 hours. 3. Cardiomyopathy with severely reduced LV ejection fraction. The patient had to be transferred for dobutamine and dopamine drip. His blood pressure still marginal. He does not have a whole lot of urine output. 4. Peripheral vascular disease with history of intra-abdominal aortic aneurysm as per admission of 03/15. 5. Need to assess for underlying coronary artery disease. 6. Bifascicular block. Would recommend continue the patient's current dobutamine and dopamine. Medications reviewed. Medical regimen and management plan discussed with the attending provider on the case. Medical decision making is high complexity. 50 minutes spent on the patient was in 50% of time spent in direct patient care. If the patient blood pressure still is low. Will increase the dopamine to 3 mcg/kg/min. Will follow
[2019-10-14] MEDS: FUROSEMIDE 20 MG TABLET PO SCH (17:25)
[2019-10-14] MEDS: DOBUTAMINE HCL/D5W 500 MG/250 ML RTUINJ IV PRN (19:00)
[2019-10-14] MEDS: ATORVASTATIN CALCIUM 40 MG TABLET PO SCH (22:10)
[2019-10-15] MEDS: LOSARTAN POTASSIUM 25 MG TABLET PO SCH ×2 (06:10→17:04)
[2019-10-15 07:07] LABS: ANION GAP 7 (5-19); BLOOD UREA NITROGEN 20 mg/dL (7-20); CARBON DIOXIDE 29 mmol/L (22-30); CHLORIDE 101 mmol/L (98-107); GLUCOSE 98 mg/dL (75-110); POTASSIUM 3.9 mmol/L (3.6-5.0)
[2019-10-15] MEDS: IPRATROPIUM BROMIDE 0.02% NEB 0.5 MG/2.5 ML AMPUL NEB SCH ×3 (08:28→20:50)
[2019-10-15] MEDS: ENOXAPARIN SODIUM INJ 40 MG/0.4 ML DISP.SYRIN SUBCUT SCH (09:23)
[2019-10-15] MEDS: METOPROLOL SUCCINATE 25 MG TAB.SR.24H PO SCH ×2 (09:35→13:39)
[2019-10-15] MEDS: FUROSEMIDE 20 MG TABLET PO SCH ×2 (09:35→17:04)
[2019-10-15] MEDS: ASPIRIN 81 MG TABLET, ENT COATED PO SCH (09:35)
[2019-10-15] MEDS: FAMOTIDINE 20 MG TABLET PO SCH ×2 (09:35→22:13)
[2019-10-15] MEDS: MIDODRINE HCL 5 MG TABLET PO SCH ×3 (09:35→17:03)
--- NOTE | 2019-10-15 11:40 | PDOC PROGRESS REPORT ---
Subjective Progress Note for:: 10/15/19 Subjective:: JARROD PAYNE is a 78 year old male past medical history of CAD, CHF, hyperlipidemia presenting to ED complaining of worsening shortness of breath for the last 3 weeks associated with dyspnea on exertion, paroxysmal nocturnal dyspnea, orthopnea, and worsening lower extremity edema. Patient denies any chest pain, fever, chills, nausea, vomiting, diarrhea, constipation or any urinary symptoms. 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 Patient has continued taking his Lasix however has noticed that his dyspnea on exertion and lower extremity edema has been worsening. Patient in ED was noted to have severely elevated BNP and mildly elevated troponins with no acute changes on EKG. Hospitalist consulted for admission. 10/11/2019. No acute events overnight. Patient is comfortably sitting in bed no apparent distress, dyspnea on exertion has resolved, denies any fever, chills, nausea, vomiting, diarrhea, constipation or any urinary symptoms. Patient has agreed to take his losartan. 10/12/2019. No acute events overnight. Patient has agreed to take his losartan, as per cardiology recommendation patient needs to be started on Midodrin and Toprol-XL. I have asked if patient is truly allergic to metoprolol he stating that he is not allergic to it he but the reason he says he is allergic to it because it is related to carvedilol and he did not have good experience with carvedilol. Patient has agreed to take Toprol-XL today. Dyspnea on exertion and lower extremity edema has improved. 10/13/2019. Patient was noted to be hypotensive with some episodes of dyspnea on exertion, patient was transferred to [facility] to be started on dopamine drip. Otherwise patient alert negative x3, cooperative with physical examination, denies any fever, chills, nausea, vomiting, diarrhea, constipation or any urinary symptoms. P.o. tolerant. Having normal bowel and bladder movements. 10/14/2019. No acute events overnight. Patient comfortably resting in bed no apparent distress, still complaining of mild exertional dyspnea and orthopnea otherwise denies any fever, chills, nausea, vomiting, diarrhea, constipation or any urinary symptoms. 10/15/2019. Yesterday patient was noted to have episodic confusion, and at times he gets very emotional and cries, when asked why he states he misses his very much and also stating that he feels like he is useless and he will never get out of here, patient has great family support always accompanied by a member of family. Patient was asked if he felt depressed and he wanted to be started on some medication he states he does not feel depressed and does not want to start on any medication at this point. Daughter who is at bedside stating that she has noticed that patient gets confused once a while but states worsening while in the hospital. This morning comfortably resting in bed no apparent distress, denies any fever, chills, nausea, vomiting, diarrhea, constipation or any urinary symptoms. P.o. tolerant. Having normal bowel and bladder movements. Reason For Visit: ACUTE CHF EXACERBATION Physical Exam Vital Signs: Temp Pulse Resp BP Pulse Ox 98.0 F 102 H 18 95/69 L 98 10/15/19 07:03 10/15/19 08:28 10/15/19 08:28 10/15/19 08:00 10/15/19 08:28 Intake & Output 10/14/19 10/15/19 10/16/19 06:59 06:59 06:59 Intake Total 860 1119 Output Total 550 1300 Balance 310 -181 Weight 79 kg 79.2 kg General appearance: PRESENT: no acute distress, well-developed, well-nourished Head exam: PRESENT: atraumatic, normocephalic Respiratory exam: PRESENT: clear to auscultation joslyn. ABSENT: rales, rhonchi, wheezes Cardiovascular exam: PRESENT: RRR. ABSENT: diastolic murmur, rubs, systolic murmur Pulses: PRESENT: normal dorsalis pedis pul GI/Abdominal exam: PRESENT: normal bowel sounds, soft. ABSENT: distended, guarding, mass, organolmegaly, rebound, tenderness Neurological exam: PRESENT: alert, awake, oriented to person, oriented to place, oriented to time, oriented to situation, CN II-XII grossly intact. ABSENT: motor sensory deficit Results Laboratory Results: 10/10/19 11:07 10/15/19 06:38 10/14/19 10/15/19 10:36 06:38 Sodium 136.8 L Potassium 3.6 3.9 Chloride 101 Carbon Dioxide 29 Anion Gap 7 BUN 20 Creatinine 0.97 Est GFR ( Amer) > 60 Glucose 98 Calcium 9.0 Magnesium 2.2 2.2 10/10/19 10/10/19 10/10/19 11:07 14:05 20:45 Troponin I 0.138 0.133 0.161 NT-Pro-B Natriuret Pep 98642 H 10/11/19 02:20 Troponin I 0.156 NT-Pro-B Natriuret Pep Impressions: Chest X-Ray 10/13/19 15:56 IMPRESSION: The tip of the right IJ central venous catheter projects within the SVC. Otherwise unchanged radiographic appearance of the chest. Assessment and Plan - Diagnosis (1) Acute systolic congestive heart failure, NYHA class 2 Is this a current diagnosis for this admission?: Yes Plan: Marginal BPs. Euvolemic. Denies any anginal symptoms. Complains of episodic shortness of breath. Adherent and compliant with his medical management. Transfer to [facility] on 10/13/2021 started on IV dobutamine and dopamine as per cardiology recommendation. Acute on chronic systolic heart failure. Most likely due to noncompliance. On admission was complaining of dyspnea on exertion, orthopnea, paroxysmal nocturnal dyspnea. On admission no JVD, benign lung examination, 1+ pitting edema bilateral lower extremities. proBNP 21,100, up from 5000 on 03/23/2020. 03/23/2019. 2D echo LVEF 30%. Left ventricular apex akinetic. Mild anterior septal, mid anterior wall akinetic. Rest of left ventricular armstrong are all hypokinetic. Mild tricuspid regurgitation. Repeat 2D echo does not show any significant changes compared to prior echo. Continue telemetry, beta-blockers, ARB, diuretics guided by volume status, fluid restriction, daily weights. Cardiology consulted. Recommendations noted. Patient was hospitalized at [facility] on 2018. Was diagnosed with severely reduced systolic ejection fraction. Was discharged on lisinopril, carvedilol and Lasix. Patient stopped taking her lisinopril after finding out that his friend had facial swelling while taking lisinopril. He also stopped carvedilol stating that it was making him retain urine and causing flank pain. Note: Patient is not allergic to carvedilol. Patient states that he stopped taking carvedilol because it was making him retain urine and causing flank pain. (2) Hypotension Qualifiers: Hypotension type: other hypotension type Qualified Code(s): I95.89 - Other hypotension Is this a current diagnosis for this admission?: Yes Plan: Marginal BPs. Complains of episodic shortness of breath. Denies any anginal symptoms. This is likely due to severely reduced ejection fraction complicated by resumption of anti-CAD meds. Currently on dopamine and dobutamine drip as per cardiology recommendations. Not a candidate for volume resuscitation due to severe CHF. Continue telemetry, dopamine and dobutamine drip. Continue midodrine, Lasix, ARB, beta-blockers. Cardiology on board. Recommendations noted. (3) Elevated troponin Is this a current diagnosis for this admission?: Yes Plan: Persistently elevated troponins. Likely NSTEMI type II caused by demand mismatch. Denies any anginal symptoms. No acute EKG changes. Continue telemetry, trend troponins, high intensity statins, antiplatelets, PRN morphine, PRN nitroglycerin. Cardiology consulted. Recommendations pending. (4) CAD (coronary artery disease) Is this a current diagnosis for this admission?: Yes Plan: Denies any anginal symptoms. Patient denied having any history of CAD based on EKG and 2D echo finding on previous admission patient may have had silent VA. Continue high-dose statins, antiplatelets, FORD, beta-blockers. Cardiology on board. Recommendations noted. (5) Hyperlipidemia Is this a current diagnosis for this admission?: Yes Plan: Diet and lifestyle modification recommended. Restart statins. Monitor for LFT elevation. (6) Depression Is this a current diagnosis for this admission?: Yes Plan: Denies any homicidal or suicidal ideation Patient noted to be tearful and sad at times and when asked why he states that he misses his and he feels useless. Patient denies being depressed. Does not want to be started on any medication or seek any professional help at this point. We will continue to monitor. Patient has great family support, they are encouraged to visit him more often.
[2019-10-15 16:10] LABS: POTASSIUM 4.1 mmol/L (3.6-5.0)
--- NOTE | 2019-10-15 18:47 | Progress Note ---
Provider Note Provider Note: CARDIOLOGY PROGRESS NOTE by Dr. Mari Coronado on 10/15/2019. SUBJECTIVE: The patient denies any chest pain or discomfort. There are no atrial or ventricular arrhythmias seen. He denies any PND orthopnea. The patient is able to ambulate. His leg edema is much improved. There is no dizziness near syncope or syncope. There is no TIA CVA symptoms. He still has rare episodes of shortness of breath at rest lasting a few minutes. This probably is related to anxiety. There are no arrhythmias correlating with his symptoms. PHYSICAL EXAMINATION: The patient is well-built and well-nourished. In no acute distress. Selected Entries 10/15/19 10/15/19 11:12 12:00 Temperature 97.8 F Temperature Oral Source Pulse Rate 96 Respiratory 17 Rate Blood Pressure 97/69 L 112/81 Blood Pressure 78 Mean BP Location Left Arm BP Position Sitting O2 Sat by Pulse 95 Oximetry Oxygen Delivery Room Air Method HEAD: Is atraumatic normocephalic. EYES: Pupils are equal round regular reactive to light accommodation. Extraocular movements are normal. There is no conjunctival pallor. There is no scleral icterus. ENT is negative. Neck is supple. There is mild JVD present. Carotids are equal there is no bruit. There is no accessory muscle respiration use. There is no lymphadenopathy. There is no goiter. Trachea central. LUNGS: Shows a few bibasilar rales of CHF. There is no hyperresonance or dullness. On palpation there is no chest wall tenderness. HEART: S1-S2 is heard. There is no S3 gallop. There is no S4 gallop. There is systolic murmur of mitral regurgitation and tricuspid regurgitation present. There is no aortic stenosis murmur. There is no aortic regurgitation murmur. There is no rub. ABDOMEN: Soft there is mild abdominal wall edema. There is NO HEPATOSPLENOMEGALY. BOWEL SOUNDS WELL HEARD. THERE IS NO TENDER AREAS MASSES. Extremities: There is 1-2 minus pedal edema bilaterally leg pulses are difficult to palpate due to edema. Femorals are well felt. There is no femoral bruits. There is no DVT or cellulitis. There is no calf tenderness. There is no cyanosis or clubbing. CORE MOUNTER: The patient is conscious awake alert oriented times with no focal deficits. PSYCHIATRIC: The patient judgment insight are intact his affect is normal. THE patient's total 24-hour intake 1119 mL. His total 24-hour output is 1300 mL. Labs- All tests 24 hr 10/15/19 06:38 Sodium 136.8 L Potassium 3.9 Chloride 101 Carbon Dioxide 29 Anion Gap 7 BUN 20 Creatinine 0.97 Est GFR ( Amer) > 60 Est GFR (MDRD) Non-Af > 60 Glucose 98 Calcium 9.0 Magnesium 2.2 Chest X-Ray 10/10/19 10:47 IMPRESSION: Trace bilateral pleural effusions Minimal bibasilar atelectasis Calcific rim of infrarenal abdominal aortic aneurysm at the bottom edge of the field of view Chest X-Ray 10/13/19 15:56 IMPRESSION: The tip of the right IJ central venous catheter projects within the SVC. Otherwise unchanged radiographic appearance of the chest. IMPRESSION/RECOMMENDATION: 1. Relative Hypotension: This is secondary to poor cardiac output due to the patient's severe cardiomyopathy. The patient has been transferred to [facility] and a triple-lumen catheter has been placed. We will continue the patient on dopamine to get the patient blood pressure up. Also the patient has been started on dobutamine at 2.5 mcg/kg/min. 2. Acute on chronic systolic heart failure. After starting the patient on midodrine the patient's blood pressure still low with sometimes blood pressure in the low 80s. Patient with symptoms of episodic shortness of breath and episodic confusion. This is most likely related to his poor cardiac output. Hence we will start the patient on IV dopamine. Subsequent to getting his blood pressure up hopefully will tolerate his beta-deandra and ARB. We will also start the patient on dobutamine since the patient's output is not very good. We will recheck his labs in the morning. Note the blood pressure has been low in spite of the patient's Midrin being increased to 10 mg p.o. 3 times daily. Will also increase the patient's Lasix to 20 mg IV every 8 hours. 3. Cardiomyopathy with severely reduced LV ejection fraction. The patient had to be transferred for dobutamine and dopamine drip. His blood pressure still marginal. He does not have a whole lot of urine output. 4. Peripheral vascular disease with history of intra-abdominal aortic aneurysm as per admission of 03/15. 5. Need to assess for underlying coronary artery disease. 6. Bifascicular block. Medications reviewed. Will probably discontinue the dobutamine tomorrow. The patient later once off the dopamine will have a IV Lexiscan Cardiolite stress test. Then will discuss based on the findings of the stress test with the patient can be transferred for AICD as an inpatient or referred to outpatient AICD placement. Medical decision making is of high complexity. This is in view of the patient being on inotropes. 40 minutes spent on this patient with more than 50% of time spent in direct patient care. Will follow.
[2019-10-15] MEDS: ATORVASTATIN CALCIUM 40 MG TABLET PO SCH (22:13)
[2019-10-16] MEDS: LOSARTAN POTASSIUM 25 MG TABLET PO SCH ×2 (06:35→17:58)
[2019-10-16] MEDS: DOBUTAMINE HCL/D5W 500 MG/250 ML RTUINJ IV PRN (06:36)
[2019-10-16] MEDS: DOPAMINE HCL/DEXTROSE 5%-WATER 800 MG/250 ML RTUINJ IV PRN (06:36)
[2019-10-16] MEDS: IPRATROPIUM BROMIDE 0.02% NEB 0.5 MG/2.5 ML AMPUL NEB SCH ×3 (08:50→20:49)
[2019-10-16] MEDS: ENOXAPARIN SODIUM INJ 40 MG/0.4 ML DISP.SYRIN SUBCUT SCH (09:10)
[2019-10-16] MEDS: MIDODRINE HCL 5 MG TABLET PO SCH ×3 (09:19→17:58)
[2019-10-16] MEDS: ASPIRIN 81 MG TABLET, ENT COATED PO SCH (09:20)
[2019-10-16] MEDS: FUROSEMIDE 20 MG TABLET PO SCH ×2 (09:20→17:58)
[2019-10-16] MEDS: FAMOTIDINE 20 MG TABLET PO SCH (09:24)
[2019-10-16] MEDS: METOPROLOL SUCCINATE 25 MG TAB.SR.24H PO SCH (09:48)
[2019-10-16] MEDS ORDERED: ACETAMINOPHEN 325 MG TABLET PO PRN (10:30)
--- NOTE | 2019-10-16 14:31 | PDOC PROGRESS REPORT ---
Subjective Progress Note for:: 10/16/19 Subjective:: JARROD PAYNE is a 78 year old male past medical history of CAD, CHF, hyperlipidemia presenting to ED complaining of worsening shortness of breath for the last 3 weeks associated with dyspnea on exertion, paroxysmal nocturnal dyspnea, orthopnea, and worsening lower extremity edema. Patient denies any chest pain, fever, chills, nausea, vomiting, diarrhea, constipation or any urinary symptoms. 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 Patient has continued taking his Lasix however has noticed that his dyspnea on exertion and lower extremity edema has been worsening. Patient in ED was noted to have severely elevated BNP and mildly elevated troponins with no acute changes on EKG. Hospitalist consulted for admission. 10/11/2019. No acute events overnight. Patient is comfortably sitting in bed no apparent distress, dyspnea on exertion has resolved, denies any fever, chills, nausea, vomiting, diarrhea, constipation or any urinary symptoms. Patient has agreed to take his losartan. 10/12/2019. No acute events overnight. Patient has agreed to take his losartan, as per cardiology recommendation patient needs to be started on Midodrin and Toprol-XL. I have asked if patient is truly allergic to metoprolol he stating that he is not allergic to it he but the reason he says he is allergic to it because it is related to carvedilol and he did not have good experience with carvedilol. Patient has agreed to take Toprol-XL today. Dyspnea on exertion and lower extremity edema has improved. 10/13/2019. Patient was noted to be hypotensive with some episodes of dyspnea on exertion, patient was transferred to [facility] to be started on dopamine drip. Otherwise patient alert negative x3, cooperative with physical examination, denies any fever, chills, nausea, vomiting, diarrhea, constipation or any urinary symptoms. P.o. tolerant. Having normal bowel and bladder movements. 10/14/2019. No acute events overnight. Patient comfortably resting in bed no apparent distress, still complaining of mild exertional dyspnea and orthopnea otherwise denies any fever, chills, nausea, vomiting, diarrhea, constipation or any urinary symptoms. 10/15/2019. Yesterday patient was noted to have episodic confusion, and at times he gets very emotional and cries, when asked why he states he misses his very much and also stating that he feels like he is useless and he will never get out of here, patient has great family support always accompanied by a member of family. Patient was asked if he felt depressed and he wanted to be started on some medication he states he does not feel depressed and does not want to start on any medication at this point. Daughter who is at bedside stating that she has noticed that patient gets confused once a while but states worsening while in the hospital. This morning comfortably resting in bed no apparent distress, denies any fever, chills, nausea, vomiting, diarrhea, constipation or any urinary symptoms. P.o. tolerant. Having normal bowel and bladder movements. 10/16/2019. No acute events overnight. Denies any anginal symptoms, intermittent shortness of breath improving, p.o. tolerant, ambulatory, having normal bowel bladder movement. Reason For Visit: ACUTE CHF EXACERBATION Physical Exam Vital Signs: Temp Pulse Resp BP Pulse Ox 97.4 F 91 16 104/74 100 10/16/19 12:00 10/16/19 12:00 10/16/19 12:00 10/16/19 12:00 10/16/19 12:00 Intake & Output 10/15/19 10/16/19 10/17/19 06:59 06:59 06:59 Intake Total 1119 1458 240 Output Total 1300 500 Balance -181 958 240 Weight 79.2 kg 78 kg General appearance: PRESENT: no acute distress, well-developed, well-nourished Head exam: PRESENT: atraumatic, normocephalic Respiratory exam: PRESENT: clear to auscultation joslyn. ABSENT: rales, rhonchi, wheezes Cardiovascular exam: PRESENT: RRR. ABSENT: diastolic murmur, rubs, systolic murmur GI/Abdominal exam: PRESENT: normal bowel sounds, soft. ABSENT: distended, guarding, mass, organolmegaly, rebound, tenderness Neurological exam: PRESENT: alert, awake, oriented to person, oriented to place, oriented to time, oriented to situation, CN II-XII grossly intact. ABSENT: motor sensory deficit Results Laboratory Results: 10/10/19 11:07 10/15/19 15:35 10/15/19 15:35 Potassium 4.1 Magnesium 2.4 H 10/10/19 10/10/19 10/10/19 11:07 14:05 20:45 Troponin I 0.138 0.133 0.161 NT-Pro-B Natriuret Pep H 10/11/19 02:20 Troponin I 0.156 NT-Pro-B Natriuret Pep Impressions: Chest X-Ray 10/13/19 15:56 IMPRESSION: The tip of the right IJ central venous catheter projects within the SVC. Otherwise unchanged radiographic appearance of the chest. Assessment and Plan - Diagnosis (1) Acute systolic congestive heart failure, NYHA class 2 Is this a current diagnosis for this admission?: Yes Plan: Marginal BPs. On dopamine and dobutamine drip. Euvolemic. Denies any anginal symptoms. Adherent and compliant with his medical management. Acute on chronic systolic heart failure. Most likely due to noncompliance. On admission was complaining of dyspnea on exertion, orthopnea, paroxysmal nocturnal dyspnea. On admission no JVD, benign lung examination, 1+ pitting edema bilateral lower extremities. On admission proBNP 21,100, up from 5000 on 03/23/2020. 03/23/2019. 2D echo LVEF 30%. Left ventricular apex akinetic. Mild anterior s eptal, mid anterior wall akinetic. Rest of left ventricular armstrong are all hypokinetic. Mild tricuspid regurgitation. 10/10/2019. Repeat echo LVEF 20 to 25%. Continue telemetry Continue beta-blockers, uptitrate as tolerated. Continue ARB, uptitrate as tolerated. Continue diuretics guided by volume status and vitals. Strict in and outs. Daily weights. Fluid restriction. Cardiology consulted. Recommendations noted. As per cardiology recommendation patient will need to undergo stress test once stabilized followed by either left heart cath for LVAD placement. Transferred to [facility] on 10/13/2021 started on IV dobutamine and dopamine as per cardiology recommendation. Patient was hospitalized at [facility] on 2018. Was diagnosed with severely reduced systolic ejection fraction. Was discharged on lisinopril, carvedilol and Lasix. Patient stopped taking her lisinopril after finding out that his friend had facial swelling while taking lisinopril. He also stopped carvedilol stating that it was making him retain urine and causing flank pain. Note: Patient is not allergic to carvedilol. Patient states that he stopped taking carvedilol because it was making him retain urine and causing flank pain. (2) Hypotension Qualifiers: Hypotension type: other hypotension type Qualified Code(s): I95.89 - Other hypotension Is this a current diagnosis for this admission?: Yes Plan: Marginal BPs. Denies any anginal symptoms. This is likely due to severely reduced ejection fraction complicated by resumption of anti-CAD meds. Currently on dopamine and dobutamine drip as per cardiology recommendations. Not a candidate for volume resuscitation due to severe CHF. Continue telemetry, dopamine and dobutamine drip. Continue midodrine, Lasix, ARB, beta-blockers. Cardiology on board. Recommendations noted. (3) Elevated troponin Is this a current diagnosis for this admission?: Yes Plan: Persistently elevated troponins. Likely NSTEMI type II caused by demand mismatch. Denies any anginal symptoms. No acute EKG changes. Continue telemetry, trend troponins, high intensity statins, antiplatelets, PRN morphine, PRN nitroglycerin. Cardiology consulted. Recommendations pending. (4) CAD (coronary artery disease) Is this a current diagnosis for this admission?: Yes Plan: Denies any anginal symptoms. Patient denied having any history of CAD based on EKG and 2D echo finding on previous admission patient may have had silent VT. Continue high-dose statins, antiplatelets, FORD, beta-blockers. Cardiology on board. Recommendations noted. (5) Hyperlipidemia Is this a current diagnosis for this admission?: Yes Plan: Diet and lifestyle modification recommended. Restart statins. Monitor for LFT elevation. (6) Depression Is this a current diagnosis for this admission?: Yes Plan: Denies any homicidal or suicidal ideation On 10/14/2019 patient noted to be tearful and sad at times and when asked why he states that he misses his and he feels useless. Has agreed for psych to be consulted. Psychiatry consulted. Pending recommendations. We will continue to monitor. Patient has great family support, they are encouraged to visit him more often.
[2019-10-16] MEDS: PANTOPRAZOLE SODIUM 40 MG TABLET.DR PO SCH (14:57)
[2019-10-16] MEDS: ATORVASTATIN CALCIUM 40 MG TABLET PO SCH (22:43)
[2019-10-16] MEDS: CLONAZEPAM 1 MG TABLET PO PRN (23:35)
[2019-10-17] MEDS: LOSARTAN POTASSIUM 25 MG TABLET PO SCH ×2 (05:31→17:05)
[2019-10-17 06:48] LABS: ANION GAP 10 (5-19); BLOOD UREA NITROGEN 17 mg/dL (7-20); CALCIUM 9.2 mg/dL (8.4-10.2); CARBON DIOXIDE 28 mmol/L (22-30); CHLORIDE 101 mmol/L (98-107); GLUCOSE 99 mg/dL (75-110); POTASSIUM 4.4 mmol/L (3.6-5.0)
[2019-10-17] MEDS: IPRATROPIUM BROMIDE 0.02% NEB 0.5 MG/2.5 ML AMPUL NEB SCH ×3 (08:53→20:42)
[2019-10-17] MEDS: ENOXAPARIN SODIUM INJ 40 MG/0.4 ML DISP.SYRIN SUBCUT SCH (09:52)
[2019-10-17] MEDS: FUROSEMIDE 20 MG TABLET PO SCH ×2 (10:02→17:23)
[2019-10-17] MEDS: MIDODRINE HCL 5 MG TABLET PO SCH ×3 (10:07→17:23)
[2019-10-17] MEDS: ASPIRIN 81 MG TABLET, ENT COATED PO SCH (10:07)
[2019-10-17] MEDS: PANTOPRAZOLE SODIUM 40 MG TABLET.DR PO SCH (10:07)
--- NOTE | 2019-10-17 12:33 | RADIOLOGY REPORT (SQ) ---
EXAM DESCRIPTION: CAROTID DOPPLER COMPLETED DATE/TIME: 10/17/2019 11:57 am REASON FOR STUDY: TIA COMPARISON: None. TECHNIQUE: Grayscale ultrasound, Doppler velocity and spectra, and color Doppler images acquired of the extra-cranial carotid and vertebral arteries. Images stored on PACS. LIMITATIONS: Unable to evaluate the right internal carotid artery and right vertebral artery due to the presence of a central line and overlying bandage. FINDINGS: RIGHT CAROTID CCA Velocities: Within normal limits. LEFT CAROTID CCA Velocities: Within normal limits. ICA Velocities Peak systolic 0.37 m/s. End diastolic 0.13 go m/s. Proximal ICA/CCA peak systolic ratio 1.0. Spectra normal. No significant plaque. VERTEBRAL ARTERIES: Right vertebral artery not evaluated. Left vertebral artery patent with antegrad e flow. SUBCLAVIAN ARTERIES: No finding. OTHER: No other significant finding. IMPRESSION: LIMITED STUDY. UNABLE TO EVALUATE THE RIGHT INTERNAL CAROTID ARTERY AND RIGHT VERTEBRAL ARTERY. NO HEMODYNAMICALLY SIGNIFICANT STENOSIS IN THE LEFT INTERNAL CAROTID ARTERY. COMMENT: Quality ID #[id number]: Velocity criteria are extrapolated from the diameter data as defined by t he Society of Radiologists in Ultrasound Consensus Conference. Radiology 2003: 229; 340-346. TECHNICAL DOCUMENTATION: JOB ID: [id number] [employer]- All Rights Reserved Reading location - IP/workstation name: [email or web address]
[2019-10-17] MEDS: METOPROLOL SUCCINATE 25 MG TAB.SR.24H PO SCH (13:18)
--- NOTE | 2019-10-17 15:01 | PDOC PROGRESS REPORT ---
Subjective Progress Note for:: 10/17/19 Subjective:: Patient is a 78-year-old white male who presented with acute combined CHF exacerbation as he stopped taking multiple cardiac medications over concerns of side effects. 10/17: No acute events overnight, labs and vitals appear stable at this point. Psychiatry has not seen patient yet though consult has been placed. Patient makes rambling strange statements but does not appear anxious or depressed. Family at bedside. Reason For Visit: ACUTE CHF EXACERBATION Physical Exam Vital Signs: Temp Pulse Resp BP Pulse Ox 97.3 F 82 18 92/62 L 99 10/17/19 11:35 10/17/19 14:00 10/17/19 13:46 10/17/19 12:43 10/17/19 13:46 Intake & Output 10/16/19 10/17/19 10/18/19 06:59 06:59 06:59 Intake Total 1458 877 213 Output Total 500 150 Balance 958 727 213 Weight 78 kg 78.1 kg General appearance: PRESENT: no acute distress, well-developed, well-nourished Head exam: PRESENT: atraumatic, normocephalic Eye exam: PRESENT: conjunctiva pink Respiratory exam: PRESENT: clear to auscultation joslyn. ABSENT: rales, rhonchi, wheezes Cardiovascular exam: PRESENT: RRR. ABSENT: diastolic murmur, rubs, systolic murmur GI/Abdominal exam: PRESENT: normal bowel sounds, soft. ABSENT: distended, guarding, mass, organolmegaly, rebound, tenderness Extremities exam: PRESENT: +2 edema Neurological exam: PRESENT: alert, awake, oriented to person, oriented to place, oriented to time Psychiatric exam: PRESENT: appropriate affect, normal mood Skin exam: PRESENT: dry, intact, warm Results Laboratory Results: 10/10/19 11:07 10/17/19 05:30 10/17/19 05:30 Sodium 138.5 Potassium 4.4 Chloride 101 Carbon Dioxide 28 Anion Gap 10 BUN 17 Creatinine 0.98 Est GFR ( Amer) > 60 Glucose 99 Calcium 9.2 Magnesium 2.4 H 10/10/19 10/10/19 10/10/19 11:07 14:05 20:45 Troponin I 0.138 0.133 0.161 NT-Pro-B Natriuret Pep H 10/11/19 02:20 Troponin I 0.156 NT-Pro-B Natriuret Pep Impressions: Chest X-Ray 10/13/19 15:56 IMPRESSION: The tip of the right IJ central venous catheter projects within the SVC. Otherwise unchanged radiographic appearance of the chest. Carotid Doppler Study 10/17/19 00:00 IMPRESSION: LIMITED STUDY. UNABLE TO EVALUATE THE RIGHT INTERNAL CAROTID ARTERY AND RIGHT VERTEBRAL ARTERY. NO HEMODYNAMICALLY SIGNIFICANT STENOSIS IN THE LEFT INTERNAL CAROTID ARTERY. Assessment and Plan - Diagnosis (1) Acute systolic congestive heart failure, NYHA class 2 Is this a current diagnosis for this admission?: Yes Plan: Per previous provider: "Marginal BPs. On dopamine and dobutamine drip. Euvolemic. Denies any anginal symptoms. Adherent and compliant with his medical management. Acute on chronic systolic heart failure. Most likely due to noncompliance. On admission was complaining of dyspnea on exertion, orthopnea, paroxysmal nocturnal dyspnea. On admission no JVD, benign lung examination, 1+ pitting edema bilateral lower extremities. On admission proBNP 21,100, up from 5000 on 03/23/2020. 03/23/2019. 2D echo LVEF 30%. Left ventricular apex akinetic. Mild anterior septal, mid anterior wall akinetic. Rest of left ventricular armstrong are all hypokinetic. Mild tricuspid regurgitation. 10/10/2019. Repeat echo LVEF 20 to 25%. Continue telemetry Continue beta-blockers, uptitrate as tolerated. Continue ARB, uptitrate as tolerated. Continue diuretics guided by volume status and vitals. Strict in and outs. Daily weights. Fluid restriction. Cardiology consulted. Recommendations noted. As per cardiology recommendation patient will need to undergo stress test once stabilized followed by either left heart cath for LVAD placement. Transferred to [facility] on 10/13/2021 started on IV dobutamine and dopamine as per cardiology recommendation. Patient was hospitalized at [facility] on 2018. Was diagnosed with severely reduced systolic ejection fraction. Was discharged on lisinopril, carvedilol and Lasix. Patient stopped taking her lisinopril after finding out that his friend had facial swelling while taking lisinopril. He also stopped carvedilol stating that it was making him retain urine and causing flank pain. Note: Patient is not allergic to carvedilol. Patient states that he stopped taking carvedilol because it was making him retain urine and causing flank pain." 10/17: Continued on cardiac medications as above as outlined by cardiology. He is having AICD arranged outpatient. Extensive discussion with patient and his family about the necessity of cardiac medications. (2) Depression Is this a current diagnosis for this admission?: Yes Plan: Per previous provider note: "Denies any homicidal or suicidal ideation On 10/14/2019 patient noted to be tearful and sad at times and when asked why he states that he misses his and he feels useless. Has agreed for psych to be consulted. Psychiatry consulted. Pending recommendations. We will continue to monitor. Patient has great family support, they are encouraged to visit him more often." 10/17: Psychiatry to see patient, has not seen him yet. Patient is not suicidal or homicidal per our discussion today. (3) Elevated troponin Is this a current diagnosis for this admission?: Yes Plan: Persistently elevated troponins. Likely NSTEMI type II caused by demand mismatch. Denies any anginal symptoms. No acute EKG changes. Continue telemetry, trend troponins, high intensity statins, antiplatelets, PRN morphine, PRN nitroglycerin. Cardiology consulted." 10/17: Stable (4) Hypertension Is this a current diagnosis for this admission?: Yes Plan: On this admission patient actually noted to be hypotensive vs LLN BP which is chronic per records - asymptomatic (5) Hyperlipidemia Is this a current diagnosis for this admission?: Yes Plan: -Diet and lifestyle modification recommended -Restart statins -Monitor for LFT elevation. - Time Time Spent with patient: 15-24 minutes Within: within 24 hours - Inpatient Certification Medical Necessity: Significant Comorbidiites Make Outpatient Treatment Too Risky
--- NOTE | 2019-10-17 15:19 | RADIOLOGY REPORT (SQ) ---
EXAM DESCRIPTION: U/S ABD AORTIC SCREENING COMPLETED DATE/TIME: 10/17/2019 2:44 pm REASON FOR STUDY: AAA COMPARISON: None. TECHNIQUE: Static and dynamic grayscale images acquired of the aorta and stored on PACs. Selected co ekaterina Doppler and spectral images recorded. LIMITATIONS: None. FINDINGS: AORTIC CALIBER MAXIMAL PROXIMAL: 2.5 cm. MID: 4.2 cm. DISTAL: 3.1 cm. Concentric mural thrombus. ILIAC DIAMETER RIGHT: 1.1 cm. LEFT: 0.9 cm. OTHER: No other significant finding. IMPRESSION: 4.2 CM ABDOMINAL AORTIC ANEURYSM. COMMENT: Aortic aneurysm imaging followup: 4.0-4.4 cm Every 12 months, vascular consultation recommended *Based upon the Society for Vascular Surgery Guidelines: J Vasc Surg. 2009 Oct;50(4 Suppl):S2-49 *For aortas of maximum diameter of 2.6-2.9 cm meeting the criteria for AAA (?1.5 x proximal normal se gment) TECHNICAL DOCUMENTATION: JOB ID: [id number] [employer]- All Rights Reserved Reading location - IP/workstation name: [email or web address]
--- NOTE | 2019-10-17 15:40 | PSYCHOLOGICAL NOTE ---
Psych Note - Psych Note Date seen by psych provider: 10/17/19 Time seen by psych provider: 15:15 Psych Note: Reason for Consult: Depression Attempted evaluation; however, patient was starting physical therapy. Will return for evaluation at a later time.
--- NOTE | 2019-10-17 19:34 | Progress Note ---
Provider Note Provider Note: CARDIOLOGY PROGRESS NOTE by Dr. Mari Coronado on 10/17/2019. SUBJECTIVE: The patient states last night he was confused and for a little while. The patient appears to be depressed. He is off the dobutamine since yesterday. He is on dopamine at 2 mcg/kg/min. His blood pressure is in the high/mid 90s to 100 systolic. There is no ventricular arrhythmia seen on the monitor. There is no atrial arrhythmias. The patient denies any chest pain or discomfort. There is no more episodes of shortness of breath. He has no TIA CVA symptoms. PHYSICAL EXAMINATION: The patient is well-built. In no acute distress. He does appear to be depressed. Selected Entries 10/17/19 11:35 Temperature 97.3 F Temperature Oral Source Pulse Rate 70 Respiratory 22 H Rate Blood Pressure 95/65 L Blood Pressure 75 Mean BP Location Left Arm BP Position Sitting O2 Sat by Pulse 100 Oximetry Oxygen Flow 2.00 Rate Oxygen Delivery Nasal Cannula Method HEAD: Is atraumatic normocephalic. EYES: Pupils are equal round regular reactive to light accommodation. Extraocular movements are normal. There is no conjunctival pallor. There is no scleral icterus. ENT is negative. Neck is supple. There is mild JVD present. Carotids are equal there is no bruit. There is no accessory muscle respiration use. There is no lymphadenopathy. There is no goiter. Trachea central. LUNGS: Shows a few bibasilar rales of CHF. There is no hyperresonance or dullness. On palpation there is no chest wall tenderness. HEART: S1-S2 is heard. There is no S3 gallop. There is no S4 gallop. There is systolic murmur of mitral regurgitation and tricuspid regurgitation present. There is no aortic stenosis murmur. There is no aortic regurgitation murmur. There is no rub. ABDOMEN: Soft there is mild abdominal wall edema. There is NO HEPATOSPLENOMEGALY. BOWEL SOUNDS WELL HEARD. THERE IS NO TENDER AREAS MASSES. Extremities: There is 1-2 minus pedal edema bilaterally leg pulses are difficult to palpate due to edema. Femorals are well felt. There is no femoral bruits. There is no DVT or cellulitis. There is no calf tenderness. There is no cyanosis or clubbing. THERMO PROCESSOR: The patient is conscious awake alert oriented times with no focal deficits. PSYCHIATRIC: The patient j udgment insight are intact his affect is normal. THE patient's total 24-hour intake 1458 mL. His total 24-hour output is 500 mL. Labs- All tests 24 hr 10/17/19 05:30 Sodium 138.5 Potassium 4.4 Chloride 101 Carbon Dioxide 28 Anion Gap 10 BUN 17 Creatinine 0.98 Est GFR ( Amer) > 60 Est GFR (MDRD) Non-Af > 60 Glucose 99 Calcium 9.2 Magnesium 2.4 H Chest X-Ray 10/10/19 10:47 IMPRESSION: Trace bilateral pleural effusions Minimal bibasilar atelectasis Calcific rim of infrarenal abdominal aortic aneurysm at the bottom edge of the field of view Chest X-Ray 10/13/19 15:56 IMPRESSION: The tip of the right IJ central venous catheter projects within the SVC. Otherwise unchanged radiographic appearance of the chest. Abdomen Ultrasound 10/17/19 00:00 IMPRESSION: 4.2 CM ABDOMINAL AORTIC ANEURYSM. Carotid Doppler Study 10/17/19 00:00 IMPRESSION: LIMITED STUDY. UNABLE TO EVALUATE THE RIGHT INTERNAL CAROTID ARTERY AND RIGHT VERTEBRAL ARTERY. NO HEMODYNAMICALLY SIGNIFICANT STENOSIS IN THE LEFT INTERNAL CAROTID ARTERY. IMPRESSION/RECOMMENDATION: 1. Relative Hypotension: This is secondary to poor cardiac output due to the patient's severe cardiomyopathy. The patient has been transferred to [facility] and a triple-lumen catheter has been placed. Will discontinue the patient's dopamine we will continue the patient's beta-deandra and ARB. 2. Acute on chronic systolic heart failure. After starting the patient on midodrine the patient's blood pressure still low with sometimes blood pressure in the low 80s. Patient with symptoms of episodic shortness of breath and episodic confusion. This is most likely related to his poor cardiac output. Hence we will start the patient on IV dopamine. Subsequent to getting his blood pressure up hopefully will tolerate his beta-deandra and ARB. We will also start the patient on dobutamine since the patient's output is not very good. We will recheck his labs in the morning. Note the blood pressure has been low in spite of the patient's Midrin being increased to 10 mg p.o. 3 times daily. Will also increase the patient's Lasix to 20 mg IV every 8 hours. 3. Cardiomyopathy with severely reduced LV ejection fraction. The patient had to be transferred for dobutamine and dopamine drip. His blood pressure still marginal. He does not have a whole lot of urine output. 4. Peripheral vascular disease with history of intra-abdominal aortic aneurysm: At present it is a 4.2 cm. Will later get a vascular surgery consult. 5. Need to assess for underlying coronary artery disease. 6. Bifascicular block. 7. Episode of confusion: Left carotid is normal. Unable to Doppler the right carotid due to the IJ and the dressing. Will recheck right carotid Doppler later on. 8. Depression: Seems to be clinically relevant to the patient's current situation. Hence will get a psych evaluation.. Medications reviewed. Medications adjusted. Medical management and medical regimen discussed with attending provider on the case. Medical decision making is of high complexity. This is in view of the need to get multiple studies done such as carotids, abdominal Doppler, and stopping his medications. Most likely will schedule the patient for IV Lexiscan Cardiolite stress test on . 40 minutes spent on the patient with more than 50% of time spent in direct patient care.. Will follow
[2019-10-17] MEDS ORDERED: ATORVASTATIN CALCIUM 40 MG TABLET PO SCH (22:00)
[2019-10-17] MEDS: ATORVASTATIN CALCIUM 20 MG TABLET PO SCH (22:03)
[2019-10-18] MEDS: LOSARTAN POTASSIUM 25 MG TABLET PO SCH ×2 (05:53→18:25)
[2019-10-18] MEDS: IPRATROPIUM BROMIDE 0.02% NEB 0.5 MG/2.5 ML AMPUL NEB SCH ×3 (08:35→20:16)
[2019-10-18] MEDS: ENOXAPARIN SODIUM INJ 40 MG/0.4 ML DISP.SYRIN SUBCUT SCH (09:27)
[2019-10-18] MEDS: METOPROLOL SUCCINATE 25 MG TAB.SR.24H PO SCH (09:35)
[2019-10-18] MEDS: ASPIRIN 81 MG TABLET, ENT COATED PO SCH (09:35)
[2019-10-18] MEDS: FUROSEMIDE 20 MG TABLET PO SCH ×2 (09:35→18:25)
[2019-10-18] MEDS: PANTOPRAZOLE SODIUM 40 MG TABLET.DR PO SCH (09:35)
[2019-10-18] MEDS: MIDODRINE HCL 5 MG TABLET PO SCH ×3 (09:35→18:25)
--- NOTE | 2019-10-18 14:09 | PDOC PROGRESS REPORT ---
Subjective Subjective:: Patient is a 78-year-old white male who presented with acute combined CHF exacerbation as he stopped taking multiple cardiac medications over concerns of side effects. 10/17: No acute events overnight, labs and vitals appear stable at this point. Psychiatry has not seen patient yet though consult has been placed. Patient makes rambling strange statements but does not appear anxious or depressed. Family at bedside. 10/18: Patient more ambulatory, up and about today, states he feels significantly improved. He states his circuits engineer came by to see him and would like him to have a stress test while he is here. Await their note evaluation today. Expect patient can be discharged in the next 48 hours if he continues to improve. Reason For Visit: ACUTE CHF EXACERBATION Physical Exam Vital Signs: Temp Pulse Resp BP Pulse Ox 97.3 F 78 18 95/74 L 100 10/18/19 11:24 10/18/19 11:24 10/18/19 08:38 10/18/19 11:24 10/18/19 11:24 Intake & Output 10/17/19 10/18/19 10/19/19 06:59 06:59 06:59 Intake Total 877 783 150 Output Total 150 420 100 Balance 727 363 50 Weight 78.1 kg 79.9 kg Eye exam: PRESENT: conjunctiva pink Respiratory exam: PRESENT: clear to auscultation joslyn. ABSENT: rales, rhonchi, wheezes Cardiovascular exam: PRESENT: RRR. ABSENT: diastolic murmur, rubs, systolic murmur GI/Abdominal exam: PRESENT: normal bowel sounds, soft. ABSENT: distended, guarding, mass, organolmegaly, rebound, tenderness Musculoskeletal exam: PRESENT: ambulatory Neurological exam: PRESENT: alert, awake Psychiatric exam: PRESENT: appropriate affect, normal mood Skin exam: PRESENT: dry, intact, warm Results Laboratory Results: 10/10/19 11:07 10/17/19 05:30 10/10/19 10/10/19 10/10/19 11:07 14:05 20:45 Troponin I 0.138 0.133 0.161 NT-Pro-B Natriuret Pep 70850 H 10/11/19 02:20 Troponin I 0.156 NT-Pro-B Natriuret Pep Impressions: Chest X-Ray 10/13/19 15:56 IMPRESSION: The tip of the right IJ central venous catheter projects within the SVC. Otherwise unchanged radiographic appearance of the chest. Abdomen Ultrasound 10/17/19 00:00 IMPRESSION: 4.2 CM ABDOMINAL AORTIC ANEURYSM. Carotid Doppler Study 10/17/19 00:00 IMPRESSION: LIMITED STUDY. UNABLE TO EVALUATE THE RIGHT INTERNAL CAROTID ARTERY AND RIGHT VERTEBRAL ARTERY. NO HEMODYNAMICALLY SIGNIFICANT STENOSIS IN THE LEFT INTERNAL CAROTID ARTERY. Assessment and Plan - Diagnosis (1) Acute systolic congestive heart failure, NYHA class 2 Is this a current diagnosis for this admission?: Yes Plan: Per previous provider: "Marginal BPs. On dopamine and dobutamine drip. Euvolemic. Denies any anginal symptoms. Adherent and compliant with his medical management. Acute on chronic systolic heart failure. Most likely due to noncompliance. On admission was complaining of dyspnea on exertion, orthopnea, paroxysmal nocturnal dyspnea. On admission no JVD, benign lung examination, 1+ pitting edema bilateral lower extremities. On admission proBNP 21,100, up from 5000 on 03/23/2020. 03/23/2019. 2D echo LVEF 30%. Left ventricular apex akinetic. Mild anterior septal, mid anterior wall akinetic. Rest of left ventricular armstrong are all hypokinetic. Mild tricuspid regurgitation. 10/10/2019. Repeat echo LVEF 20 to 25%. Continue telemetry Continue beta-blockers, uptitrate as tolerated. Continue ARB, uptitrate as tolerated. Continue diuretics guided by volume status and vitals. Strict in and outs. Daily weights. Fluid restriction. Cardiology consulted. Recommendations noted. As per cardiology recommendation patient will need to undergo stress test once stabilized followed by either left heart cath for LVAD placement. Transferred to [facility] on 10/13/2021 started on IV dobutamine and dopamine as per cardiology recommendation. Patient was hospitalized at [facility] on 2018. Was diagnosed with severely reduced systolic ejection fraction. Was discharged on lisinopril, carvedilol and Lasix. Patient stopped taking her lisinopril after finding out that his friend had facial swelling while taking lisinopril. He also stopped carvedilol stating that it was making him retain urine and causing flank pain. Note: Patient is not allergic to carvedilol. Patient states that he stopped taking carvedilol because it was making him retain urine and causing flank pain." 10/17: Continued on cardiac medications as above as outlined by cardiology. He is having AICD arranged outpatient. Extensive discussion with patient and his family about the necessity of cardiac medications. 10/18: Patient states he is going to need a pacemaker and is planning a stress test per cardiology, overall symptomatology is improved today and he is in much better spirits. No new complaints (2) Depression Is this a current diagnosis for this admission?: Yes (3) Elevated troponin Is this a current diagnosis for this admission?: Yes (4) Hypertension Is this a current diagnosis for this admission?: Yes (5) Hyperlipidemia Is this a current diagnosis for this admission?: Yes - Time Time Spent with patient: 15-24 minutes Anticipated discharge: Home Within: within 48 hours - Inpatient Certification Medical Necessity: Need Close Monitoring Due to Risk of Patient Decompensation
--- NOTE | 2019-10-18 17:02 | PSYCHOLOGICAL NOTE ---
Psych Note - Psych Note Date seen by psych provider: 10/18/19 Time seen by psych provider: 15:20 Psych Note: Clinician attempted to meet with patient. Clinician was informed by nurse that patient was on the floor somewhere. Clinician made 3 laps around the floor, checking in patient's room each time. Clinician was unable to make contact with patient. Plan is for clinician to reattempt contact tomorrow.
--- NOTE | 2019-10-18 18:13 | Progress Note ---
Provider Note Provider Note: CARDIOLOGY PROGRESS NOTE by Dr. Mari Coronado on 10/18/2019. SUBJECTIVE: No further episodes of confusion. The patient is more cheerful today. He states his appetite has been better he is eating well. He is off the dopamine and the Dobutrex. His blood pressure is stable and is able to tolerate the small dose of beta-deandra and ARB. He denies any chest pain or discomfort. There is no PND orthopnea. There is no recurrence of any nonsustained ventricular tachycardia on the monitor. There is no atrial rhythms. There is no abdominal pain. There is no TIA CVA symptoms. PHYSICAL EXAMINATION: The patient is well-built. He is well-groomed, and in no acute distress. Selected Entries 10/18/19 10/18/19 09:40 11:24 Temperature 97.3 F Pulse Rate 78 Blood Pressure 95/74 L Blood Pressure 81 Mean O2 Sat by Pulse 100 Oximetry Oxygen Delivery Room Air Method ( includes room air) HEAD: Is atraumatic normocephalic. EYES: Pupils are equal round regular reactive to light accommodation. Extraocular movements are normal. There is no conjunctival pallor. There is no scleral icterus. ENT is negative. Neck is supple. There is mild JVD present. Carotids are equal there is no bruit. There is no accessory muscle respiration use. There is no lymphadenopathy. There is no goiter. Trachea central. LUNGS: Shows a few bibasilar rales of CHF. There is no hyperresonance or dullness. On palpation there is no chest wall tenderness. HEART: S1-S2 is heard. There is no S3 gallop. There is no S4 gallop. There is systolic murmur of mitral regurgitation and tricuspid regurgitation present. There is no aortic stenosis murmur. There is no aortic regurgitation murmur. There is no rub. ABDOMEN: Soft there is mild abdominal wall edema. There is NO HEPATOSPLENOMEGALY. BOWEL SOUNDS WELL HEARD. THERE IS NO TENDER AREAS MASSES. Extremities: There is 1-2 minus pedal edema bilaterally leg pulses are difficult to palpate due to edema. Femorals are well felt. There is no femoral bruits. There is no DVT or cellulitis. There is no calf te nderness. There is no cyanosis or clubbing. 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 PSYCHIATRIC: The patient judgment insight are intact his affect is normal. THE patient's total 24-hour intake 1458 mL. His total 24-hour output is 500 mL. IMPRESSION/RECOMMENDATION: 1. Relative Hypotension: This is secondary to poor cardiac output due to the patient's severe cardiomyopathy. Although his blood pressure is in the mid 90s. He is able to tolerate beta-deandra dose and ARB dose. He is off inotropes. 2. Acute on chronic systolic heart failure. At present seems to be well compensated. Continue the patient's beta-deandra, ARB and midodrine. 3. Cardiomyopathy with severely reduced LV ejection fraction. The patient had to be transferred for dobutamine and dopamine drip. His blood pressure still marginal. 4. Peripheral vascular disease with history of intra-abdominal aortic aneurysm: At present it is a 4.2 cm. Will later get a vascular surgery consult. This can be done as an outpatient. 5. Need to assess for underlying coronary artery disease. The patient's cardiac status is stable. We will schedule the patient. IV Lexiscan Cardiolite stress test in the a.m. This has been discussed with the patient. 6. Bifascicular block. 7. Episode of confusion: Left carotid is normal. Unable to Doppler the right carotid due to the IJ and the dressing. Will recheck right carotid Doppler later on. 8. Depression: Seems to be clinically relevant to the patient's current situation. Still await psych evaluation. If the stress test is negative for any ischemia then would place the patient on a LifeVest and discharge the patient and get an outpatient EP cardiology consult for AICD placement. Medications reviewed. Medical regimen and management plan discussed with attending physician. Now medical decision making is of moderate complexity. 40 minutes spent as patient more than 50% time spent in direct patient care. Will follow.
[2019-10-18] MEDS: ATORVASTATIN CALCIUM 20 MG TABLET PO SCH (21:43)
[2019-10-19] MEDS: CLONAZEPAM 1 MG TABLET PO PRN ×2 (03:16→22:11)
[2019-10-19] MEDS: LOSARTAN POTASSIUM 25 MG TABLET PO SCH ×2 (05:38→17:33)
[2019-10-19 06:25] LABS: ABSOLUTE EOSINOPHILS # (AUTO) 0.1 10^3/uL (0.0-0.6); ABSOLUTE LYMPHOCYTES (AUTO) 1.2 10^3/uL (0.5-4.7); ABSOLUTE MONOCYTES (AUTO) 0.6 10^3/uL (0.1-1.4); ABSOLUTE NEUT (AUTO) 3.7 10^3/uL (1.7-8.2); BASOPHILS % (AUTO) 0.7 % (0-2); EOSINOPHILS % (AUTO) 1.4 % (0-6); HEMATOCRIT 42.9 % (37.9-51.0); HEMOGLOBIN 13.9 g/dL (13.5-17.0); LYMPHOCYTES % (AUTO) 22.1 % (13-45); MEAN CORPUSCULAR HGB CONC 32.4 g/dL (32.0-36.0); MEAN CORPUSCULAR VOLUME 90 fl (80-97); RED BLOOD COUNT 4.79 10^6/uL (4.35-5.55); RED CELL DISTRIBUTION WIDTH 15.7 % (11.5-14.0); SEGMENTED NEUTROPHILS % (AUTO) 65.8 % (42-78); TOTAL CELLS COUNTED % (AUTO) 100 %; WHITE BLOOD COUNT 5.6 10^3/uL (4.0-10.5)
[2019-10-19 06:43] LABS: PLATELET COUNT 92 10^3/uL (150-450)
[2019-10-19] MEDS: IPRATROPIUM BROMIDE 0.02% NEB 0.5 MG/2.5 ML AMPUL NEB SCH ×3 (08:40→20:20)
[2019-10-19] MEDS: ENOXAPARIN SODIUM INJ 40 MG/0.4 ML DISP.SYRIN SUBCUT SCH (09:47)
[2019-10-19] MEDS: FUROSEMIDE 20 MG TABLET PO SCH ×2 (10:09→17:33)
[2019-10-19] MEDS: MIDODRINE HCL 5 MG TABLET PO SCH ×3 (10:09→17:33)
[2019-10-19] MEDS: ASPIRIN 81 MG TABLET, ENT COATED PO SCH (10:09)
[2019-10-19] MEDS: METOPROLOL SUCCINATE 25 MG TAB.SR.24H PO SCH (10:10)
[2019-10-19] MEDS: PANTOPRAZOLE SODIUM 40 MG TABLET.DR PO SCH (10:10)
--- NOTE | 2019-10-19 12:43 | PDOC PROGRESS REPORT ---
Subjective Progress Note for:: 10/19/19 Subjective:: Patient is a 78-year-old white male who presented with acute combined CHF exacerbation as he stopped taking multiple cardiac medications over concerns of side effects. 10/17: No acute events overnight, labs and vitals appear stable at this point. Psychiatry has not seen patient yet though consult has been placed. Patient makes rambling strange statements but does not appear anxious or depressed. Family at bedside. 10/18: Patient more ambulatory, up and about today, states he feels significantly improved. He states his housekeeper came by to see him and would like him to have a stress test while he is here. Await their note evaluation today. Expect patient can be discharged in the next 48 hours if he continues to improve. 10/19: Long discussion with patient and his granddaughter today. 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 He states a stress test went well today and we are awaiting results. He is also waiting on a LifeVest to be delivered to the hospital and he cannot be discharged until he has this on his person. Reason For Visit: ACUTE CHF EXACERBATION Physical Exam Vital Signs: Temp Pulse Resp BP Pulse Ox 97.7 F 90 18 101/68 88 L 10/19/19 12:05 10/19/19 12:05 10/19/19 12:05 10/19/19 12:05 10/19/19 12:05 Intake & Output 10/18/19 10/19/19 10/20/19 06:59 06:59 06:59 Intake Total 783 450 350 Output Total 420 200 100 Balance 363 250 250 Weight 79.9 kg 79.5 kg General appearance: PRESENT: no acute distress, well-developed, well-nourished Head exam: PRESENT: atraumatic, normocephalic Eye exam: PRESENT: conjunctiva pink Mouth exam: PRESENT: moist Respiratory exam: PRESENT: clear to auscultation joslyn. ABSENT: rales, rhonchi, wheezes Cardiovascular exam: PRESENT: RRR. ABSENT: diastolic murmur, rubs, systolic murmur GI/Abdominal exam: PRESENT: normal bowel sounds, soft. ABSENT: distended, guarding, mass, organolmegaly, rebound, tenderness Musculoskeletal exam: PRESENT: ambulatory Neurological exam: PRESENT: alert, awake Psychiatric exam: PRESENT: appropriate affect, normal mood Skin exam: PRESENT: dry, intact, warm Results Laboratory Results: 10/19/19 06:00 10/17/19 05:30 10/19/19 06:00 WBC 5.6 RBC 4.79 Hgb 13.9 Hct 42.9 MCV 90 MCH 29.0 MCHC 32.4 RDW 15.7 H Plt Count 92 L Seg Neutrophils % 65.8 10/10/19 10/10/19 10/10/19 11:07 14:05 20:45 Troponin I 0.138 0.133 0.161 NT-Pro-B Natriuret Pep H 10/11/19 02:20 Troponin I 0.156 NT-Pro-B Natriuret Pep Impressions: Chest X-Ray 10/13/19 15:56 IMPRESSION: The tip of the right IJ central venous catheter projects within the SVC. Otherwise unchanged radiographic appearance of the chest. Abdomen Ultrasound 10/17/19 00:00 IMPRESSION: 4.2 CM ABDOMINAL AORTIC ANEURYSM. Carotid Doppler Study 10/17/19 00:00 IMPRESSION: LIMITED STUDY. UNABLE TO EVALUATE THE RIGHT INTERNAL CAROTID ARTERY AND RIGHT VERTEBRAL ARTERY. NO HEMODYNAMICALLY SIGNIFICANT STENOSIS IN THE LEFT INTERNAL CAROTID ARTERY. Assessment and Plan - Diagnosis (1) Acute systolic congestive heart failure, NYHA class 2 Is this a current diagnosis for this admission?: Yes Plan: Per previous provider: "Marginal BPs. On dopamine and dobutamine drip. Euvolemic. Denies any anginal symptoms. Adherent and compliant with his medical management. Acute on chronic systolic heart failure. Most likely due to noncompliance. On admission was complaining of dyspnea on exertion, orthopnea, paroxysmal nocturnal dyspnea. On admission no JVD, benign lung examination, 1+ pitting edema bilateral lower extremities. On admission proBNP 21,100, up from 5000 on 03/23/2020. 03/23/2019. 2D echo LVEF 30%. Left ventricular apex akinetic. Mild anterior septal, mid anterior wall akinetic. Rest of left ventricular armstrong are all hypokinetic. Mild tricuspid regurgitation. 10/10/2019. Repeat echo LVEF 20 to 25%. Continue telemetry Continue beta-blockers, uptitrate as tolerated. Continue ARB, uptitrate as tolerated. Continue diuretics guided by volume status and vitals. Strict in and outs. Daily weights. Fluid restriction. Cardiology consulted. Recommendations noted. As per cardiology recommendation patient will need to undergo stress test once stabilized followed by either left heart cath for LVAD placement. Transferred to [facility] on 10/13/2021 started on IV dobutamine and dopamine as per cardiology recommendation. Patient was hospitalized at [facility] on 2018. Was diagnosed with severely reduced systolic ejection fraction. Was discharged on lisinopril, carvedilol and Lasix. Patient stopped taking her lisinopril after finding out that his friend had facial swelling while taking lisinopril. He also stopped carvedilol stating that it was making him retain urine and causing flank pain. Note: Patient is not allergic to carvedilol. Patient states that he stopped taking carvedilol because it was making him retain urine and causing flank pain." 10/17: Continued on cardiac medications as above as outlined by cardiology. He is having AICD arranged outpatient. Extensive discussion with patient and his family about the necessity of cardiac medications. 10/18: Patient states he is going to need a pacemaker and is planning a stress test per cardiology, overall symptomatology is improved today and he is in much better spirits. No new complaints 10/19: Asymptomatic today other than some very mild fatigue. NST done this morning but no results yet. LifeVest ordered by housekeeper but has not been delivered here yet. (2) Depression Is this a current diagnosis for this admission?: Yes Plan: Per previous provider note: "Denies any homicidal or suicidal ideation On 10/14/2019 patient noted to be tearful and sad at times and when asked why he states that he misses his and he feels useless. Has agreed for psych to be consulted. Psychiatry consulted. Pending recommendations. We will continue to monitor. Patient has great family support, they are encouraged to visit him more often." 10/17: Psychiatry to see patient, has not seen him yet. Patient is not suicidal or homicidal per our discussion today. 10/19: Psychiatry team has missed the patient multiple times now but their note states they will continue to try. (3) Elevated troponin Is this a current diagnosis for this admission?: Yes (4) Hypertension Is this a current diagnosis for this admission?: Yes (5) Hyperlipidemia Is this a current diagnosis for this admission?: Yes - Time Medications reviewed and adjusted accordingly: Yes Anticipated discharge: Home Within: within 24 hours - Inpatient Certification Medical Necessity: Significant Comorbidiites Make Outpatient Treatment Too Risky, Need Close Monitoring Due to Risk of Patient Decompensation
--- NOTE | 2019-10-19 18:30 | Progress Note ---
Provider Note Provider Note: CARDIOLOGY PROVIDER NOTE by Dr. Mari Coronado on 10/19/2019. SUBJECTIVE: The patient is more cheerful today. He denies any chest pain or discomfort. There is no shortness of breath. There is no PND orthopnea. His leg edema is much improved and there is only trace leg edema with chronic venous stasis dermatitis changes. There is no recurrence of nonsustained ventricular tachycardia. The patient's blood pressure is improved. The patient is able to tolerate Toprol-XL and losartan. He is also on Midrin. The patient underwent a uneventful stress test with the Lexiscan and Cardiolite nuclear imaging today. PHYSICAL EXAMINATION:. The patient is well-built. He is in no acute distress. Selected Entries 10/19/19 16:46 Temperature 97.3 F Temperature Oral Source Pulse Rate 76 Respiratory 18 Rate Blood Pressure 106/70 Blood Pressure 82 Mean BP Location Right Arm BP Position Supine O2 Sat by Pulse 100 Oximetry Oxygen Flow 2.00 Rate Oxygen Delivery Nasal Cannula Method HEAD: Is atraumatic normocephalic. EYES: Pupils are equal round regular r eactive to light accommodation. Extraocular movements are normal. There is no conjunctival pallor. There is no scleral icterus. ENT is negative. Neck is supple. There is mild JVD present. Carotids are equal there is no bruit. There is no accessory muscle respiration use. There is no lymphadenopathy. There is no goiter. Trachea central. LUNGS: Shows a few bibasilar rales of CHF. There is no hyperresonance or dullness. On palpation there is no chest wall tenderness. HEART: S1-S2 is heard. There is no S3 gallop. There is no S4 gallop. There is systolic murmur of mitral regurgitation and tricuspid regurgitation present. There is no aortic stenosis murmur. There is no aortic regurgitation murmur. There is no rub. ABDOMEN: Soft there is mild abdominal wall edema. There is NO HEPATOSPLENOMEGALY. BOWEL SOUNDS WELL HEARD. THERE IS NO TENDER AREAS MASSES. Extremities: There is is trace pedal edema bilaterally. There is chronic venous stasis dermatitis changes. Leg pulses are difficult to palpate due to edema. Femorals are well felt. There is no femoral bruits. There is no DVT or cellulitis. There is no calf tenderness. There is no cyanosis or clubbing. 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 PSYCHIATRIC: The patient judgment insight are intact his affect is normal. THE patient's total 24-hour intake 783 mL. His total 24-hour output is 420 mL. IV Lexiscan Cardiolite stress test: Shows no reversible ischemia. There is a scar in the inferior wall and the LV apex and the apical anterior and the apical septal segments. The left ventricle is dilated in both the rest and stress images. The LV ejection fraction is severely depressed. 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 This has been discussed the patient in detail. In view of this and the patient's depressed LV ejection fraction will refer the patient for an outpatient AICD placement. In the interim due to high risk of sudden will place a LifeVest. LifeVest forms filled. Labs- All tests 24 hr 10/19/19 06:00 WBC 5.6 RBC 4.79 Hgb 13.9 Hct 42.9 MCV 90 MCH 29.0 MCHC 32.4 RDW 15.7 H Plt Count 92 L Lymph % (Auto) 22.1 [place] % (Auto) 10.0 Eos % (Auto) 1.4 Baso % (Auto) 0.7 Absolute Neuts (auto) 3.7 Absolute Lymphs (auto) 1.2 Absolute Monos (auto) 0.6 Absolute Eos (auto) 0.1 Absolute Basos (auto) 0.0 Seg Neutrophils % 65.8 Chest X-Ray 10/10/19 10:47 IMPRESSION: Trace bilateral pleural effusions Minimal bibasilar atelectasis Calcific rim of infrarenal abdominal aortic aneurysm at the bottom edge of the field of view Chest X-Ray 10/13/19 15:56 IMPRESSION: The tip of the right IJ central venous catheter projects within the SVC. Otherwise unchanged radiographic appearance of the chest. Abdomen Ultrasound 10/17/19 00:00 IMPRESSION: 4.2 CM ABDOMINAL AORTIC ANEURYSM. Carotid Doppler Study 10/17/19 00:00 IMPRESSION: LIMITED STUDY. UNABLE TO EVALUATE THE RIGHT INTERNAL CAROTID ARTERY AND RIGHT VERTEBRAL ARTERY. NO HEMODYNAMICALLY SIGNIFICANT STENOSIS IN THE LEFT INTERNAL CAROTID ARTERY. IMPRESSION/RECOMMENDATION: 1. Relative Hypotension: This is secondary to poor cardiac output due to the patient's severe cardiomyopathy. Although his blood pressure is in the mid 90s. He is able to tolerate beta-deandra dose and ARB dose. He is off inotropes. 2. Acute on chronic systolic heart failure. At present seems to be well compensated. Continue the patient's beta-deandra, ARB and midodrine. 3. Cardiomyopathy with severely reduced LV ejection fraction. The patient had to be transferred for dobutamine and dopamine drip. His blood pressure still marginal. 4. Peripheral vascular disease with history of intra-abdominal aortic aneurysm: At present it is a 4.2 cm. Will later get a vascular surgery consult. This can be done as an outpatient. 5. Need to assess for underlying coronary artery disease. The patient's Stress test which is abnormal is consistent with there being no reversible ischemia. 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 Hence 6. Bifascicular block. 7. Episode of confusion: Left carotid is normal. Unable to Doppler the right carotid due to the IJ and the dressing. Will recheck right carotid Doppler later on. 8. Depression: This seems to have improved. Still no psychiatric evaluation seen. The patient seems less depressed. 9. In view of the patient's severely reduced LV ejection fraction, and history of 1 episode of nonsustained ventricular tachycardia the patient is at high risk for sudden . Hence would recommend that the patient have an LifeVest based in the interim prior to referring the patient for an outpatient AICD placement. This has been discussed with the patient. Forms filled for the LifeVest. Discussed. With the patient. Medication reviewed. Medical regimen and management plan discussed with attending provider on the case. Medical decision making is high complexity. 40 minutes spent with patient more than 50% of time spent direct patient care. Will follow.
--- NOTE | 2019-10-19 19:45 | DRAGON STRESS TEST REPORT ---
Intravenous Lexiscan Cardiolite stress test using single photon emmision computerized tomography. Date of procedure: 10/19/2019. Ordering Provider: Dr. Mari Coronado. Patient's status: In Patient. Indication: Cardiomyopathy and history of possible coronary artery disease. Coronary risk factors: Age, and hypertension. Resting EKG: Sinus Rhythm. Right Bundle Branch Block pattern. Stress EKG: No EKG evidence of Lexiscan induced ischemia.. The patient had no chest pain or discomfort, and there were no arrhythmias seen. Reason for termination: Protocol. Conclusions: Normal EKG and hemodynamic response to IV Lexiscan. Nuclear data: At rest the patient was given 11.08 millicuries of technetium 99m sestamibi injected intravenously. As per protocol rest non gated SPECT images were obtained. Subsequently the patient was given intravenous Lexiscan at a dose of 0.4 mg in 5 mL intravenously, followed by flush with normal saline. Subsequently the stress dose of 37.2 millicuries of technetium 99m sestamibi was injected intravenously. As per protocol stress gated images were obtained. Nuclear interpretation: Review of images showed that there is a large perfusion defect involving the inferior wall in both rest and stress images. This area had absent motion contraction and thickening consistent with prior myocardial infarction. There is also a perfusion defect of the left ventricle apex, the apical anterior and apical septal armstrong in both rest and stress images. This area also had severely reduced motion contraction and thickening by gated study. This is also consistent with prior IL. There is no reversible ischemia. The left ventricle was dilated in both the rest and stress images. There was in addition global severe hypokinesis consistent with a mixture of ischemic and dilated cardiomyopathy with severely reduced LV ejection fraction. . T. I D. ratio was normal at 0.92. Computer read rest, and stress left ventricular ejection fraction were 11 %, and 13 %, respectively. Visually both the stress and rest ejection fractions were severely depresseda. Conclusion: 1. There is no scintigraphic evidence of Lexiscan induced myocardial ischemia. 2. There is scintigraphic evidence of myocardial infarction/scar of the inferior wall, the left ventricle apex, and apical anterior apical septal armstrong.. 3. 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 Recommendations: 1. Aggressive treatment of cardiomyopathy with ARB and beta-blockers. If tolerated nitrates. 2. Check echo for LV ejection fraction correlation. 3. Referral for AICD placement. 4. Aggressive risk factor modification, and treating the underlying co- morbidities. MTDD
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
[2019-10-19] MEDS: ATORVASTATIN CALCIUM 20 MG TABLET PO SCH (22:11)
[2019-10-20] MEDS: LOSARTAN POTASSIUM 25 MG TABLET PO SCH ×2 (06:40→21:46)
[2019-10-20] MEDS: IPRATROPIUM BROMIDE 0.02% NEB 0.5 MG/2.5 ML AMPUL NEB SCH ×3 (07:36→20:31)
[2019-10-20] MEDS: PANTOPRAZOLE SODIUM 40 MG TABLET.DR PO SCH (09:47)
[2019-10-20] MEDS: ASPIRIN 81 MG TABLET, ENT COATED PO SCH (09:47)
[2019-10-20] MEDS: ENOXAPARIN SODIUM INJ 40 MG/0.4 ML DISP.SYRIN SUBCUT SCH (09:47)
[2019-10-20] MEDS: METOPROLOL SUCCINATE 25 MG TAB.SR.24H PO SCH (09:47)
[2019-10-20] MEDS: MIDODRINE HCL 5 MG TABLET PO SCH ×3 (09:47→21:49)
[2019-10-20] MEDS: FUROSEMIDE 20 MG TABLET PO SCH ×2 (09:47→21:49)
--- NOTE | 2019-10-20 19:05 | Progress Note ---
Provider Note Provider Note: CARDIOLOGY PROGRESS NOTE by Dr. Mari Coronado on 10/20/2019. SUBJECTIVE: The patient is in a better mood. He was seen by psychiatry. He has no anginal symptoms. There is no shortness of breath. There is no PND orthopnea. There is no atrial or ventricular arrhythmias seen. The blood pressure is much improved and the patient tolerating small doses of beta-deandra and FORD inhibitor. He has no signs of heart failure. He has no TIA CVA symptoms. The patient has no further episodes of confusion. PHYSICAL EXAMINATION: The patient is well-built. He appears to be in no acute distress. Selected Entries 10/20/19 14:44 Temperature 98.3 F Temperature Oral Source Pulse Rate 79 Respiratory 18 Rate Blood Pressure 107/75 Blood Pressure 85 Mean BP Location Right Arm BP Position Supine O2 Sat by Pulse 99 Oximetry Oxygen Delivery Room Air Method HEAD: Is atraumatic normocephalic. EYES: Pupils are equal round regular reactive to light accommodation. Extraocular movements are normal. There is no conjunctival pallor. There is no scleral icterus. ENT is negative. Neck is supple. There is mild JVD present. Carotids are equal there is no bruit. There is no accessory muscle respiration use. There is no lymphadenopathy. There is no goiter. Trachea central. LUNGS: Shows a few bibasilar rales of CHF. There is no hyperresonance or dullness. On palpation there is no chest wall tenderness. HEART: S1-S2 is heard. There is no S3 gallop. There is no S4 gallop. There is systolic murmur of mitral regurgitation and tricuspid regurgitation present. There is no aortic stenosis murmur. There is no aortic regurgitation murmur. There is no rub. ABDOMEN: Soft there is mild abdominal wall edema. There is NO HEPATOSPLENOMEGALY. BOWEL SOUNDS WELL HEARD. THERE IS NO TENDER AREAS MASSES. Extremities: There is is trace pedal edema bilaterally. There is chronic venous stasis dermatitis changes. Leg pulses are difficult to palpate due to edema. Femorals are well felt. There is no femoral bruits. There is no DVT or cellulitis. There is no calf tenderness. There is no cyanosis or clubbing. GROUP HOME PARAPROFESSIONAL: The patient is conscious awake alert oriented times with no focal deficits. PSYCHIATRIC: The patient judgment insight are intact his affect is normal. THE patient's total 24-hour intake 1097 mL. His total 24-hour output is 450 mL. Chest X-Ray 10/10/19 10:47 IMPRESSION: Trace bilateral pleural effusions Minimal bibasilar atelectasis Calcific rim of infrarenal abdominal aortic aneurysm at the bottom edge of the field of view Chest X-Ray 10/13/19 15:56 IMPRESSION: The tip of the right IJ central venous catheter projects within the SVC. Otherwise unchanged radiographic appearance of the chest. Abdomen Ultrasound 10/17/19 00:00 IMPRESSION: 4.2 CM ABDOMINAL AORTIC ANEURYSM. Carotid Doppler Study 10/17/19 00:00 IMPRESSION: LIMITED STUDY. UNABLE TO EVALUATE THE RIGHT INTERNAL CAROTID ARTERY AND RIGHT VERTEBRAL ARTERY. NO HEMODYNAMICALLY SIGNIFICANT STENOSIS IN THE LEFT INTERNAL CAROTID ARTERY. IMPRESSION/RECOMMENDATIONS: 1. Relative Hypotension: This is secondary to poor cardiac output due to the patient's severe cardiomyopathy. Although his blood pressure is in the mid 90s. He is able to tolerate beta-deandra dose and ARB dose. He is off inotropes. 2. Acute on chronic systolic heart failure. At present seems to be well compensated. Continue the patient's beta-deandra, ARB and midodrine. 3. Cardiomyopathy with severely reduced LV ejection fraction. The patient had to be transferred for dobutamine and dopamine drip. His blood pressure still marginal. 4. Peripheral vascular disease with history of intra-abdominal aortic aneurysm: At present it is a 4.2 cm. Will later get a vascular surgery consult. This can be done as an outpatient. 5. Need to assess for underlying coronary artery disease. The patient's Stress test which is abnormal is consistent with there being no reversible ischemia. 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 Hence 6. Bifascicular block. 7. Episode of confusion: Left carotid is normal. Unable to Doppler the right carotid due to the IJ and the dressing. Will recheck right carotid Doppler later on. 8. Depression: This seems to have improved. Still no psychiatric evaluation seen. The patient seems less depressed. 9. In view of the patient's severely reduced LV ejection fraction, and history of 1 episode of nonsustained ventricular tachycardia the patient is at high risk for sudden . Patient awaiting [employer] insurance sales representative to educate him on the use of LifeVest. Medications reviewed. Medical regimen and management plan discussed with attending provider on the case. Medical decision making is a moderate complexity. 40 minutes spent as patient with more than 50% time spent in direct patient care. Will follow.
[2019-10-20] MEDS: ATORVASTATIN CALCIUM 20 MG TABLET PO SCH (21:46)
[2019-10-20] MEDS: CLONAZEPAM 1 MG TABLET PO PRN (21:46)
[2019-10-20] MEDS: ACETAMINOPHEN 325 MG TABLET PO PRN (23:13)
[2019-10-21] MEDS: LOSARTAN POTASSIUM 25 MG TABLET PO SCH ×2 (05:27→17:25)
--- NOTE | 2019-10-21 08:02 | PDOC PROGRESS REPORT ---
Subjective Progress Note for:: 10/20/19 Subjective:: Patient is a 78-year-old white male who presented with acute combined CHF exacerbation as he stopped taking multiple cardiac medications over concerns of side effects. 10/17: No acute events overnight, labs and vitals appear stable at this point. Psychiatry has not seen patient yet though consult has been placed. Patient makes rambling strange statements but does not appear anxious or depressed. Family at bedside. 10/18: Patient more ambulatory, up and about today, states he feels significantly improved. He states his import export manager came by to see him and would like him to have a stress test while he is here. Await their note evaluation today. Expect patient can be discharged in the next 48 hours if he continues to improve. 10/19: Long discussion with patient and his granddaughter today. 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 He states a stress test went well today and we are awaiting results. He is also waiting on a [employer]est to be delivered to the hospital and he cannot be discharged until he has this on his person. 10/20: Patient has no new complaints other than intermittent panic attacks related to his P. He is ready for discharge with the exception of getting his [employer]est training done in the individual that is to do this is not here for some reason. Reason For Visit: ACUTE CHF EXACERBATION Physical Exam Vital Signs: Temp Pulse Resp BP Pulse Ox 97.7 F 79 20 102/73 97 10/21/19 04:00 10/21/19 04:00 10/21/19 04:00 10/21/19 04:00 10/21/19 04:00 Intake & Output 10/20/19 10/21/19 10/22/19 06:59 06:59 06:59 Intake Total 1087 980 Output Total 450 325 Balance 637 655 Weight 80.8 kg 80.6 kg General appearance: PRESENT: no acute distress, well-developed, well-nourished Head exam: PRESENT: atraumatic, normocephalic Eye exam: PRESENT: conjunctiva pink Mouth exam: PRESENT: moist Respiratory exam: PRESENT: clear to auscultation joslyn. ABSENT: rales, rhonchi, wheezes Cardiovascular exam: PRESENT: RRR. ABSENT: diastolic murmur, rubs, systolic murmur GI/Abdominal exam: PRESENT: normal bowel sounds, soft. ABSENT: distended, guarding, mass, organolmegaly, rebound, tenderness Neurological exam: PRESENT: alert, awake Psychiatric exam: PRESENT: appropriate affect, normal mood Skin exam: PRESENT: dry, intact, warm Results Laboratory Results: 10/19/19 06:00 10/17/19 05:30 10/10/19 10/10/19 10/10/19 11:07 14:05 20:45 Troponin I 0.138 0.133 0.161 NT-Pro-B Natriuret Pep H 10/11/19 02:20 Troponin I 0.156 NT-Pro-B Natriuret Pep Impressions: Chest X-Ray 10/13/19 15:56 IMPRESSION: The tip of the right IJ central venous catheter projects within the SVC. Otherwise unchanged radiographic appearance of the chest. Abdomen Ultrasound 10/17/19 00:00 IMPRESSION: 4.2 CM ABDOMINAL AORTIC ANEURYSM. Carotid Doppler Study 10/17/19 00:00 IMPRESSION: LIMITED STUDY. UNABLE TO EVALUATE THE RIGHT INTERNAL CAROTID ARTERY AND RIGHT VERTEBRAL ARTERY. NO HEMODYNAMICALLY SIGNIFICANT STENOSIS IN THE LEFT INTERNAL CAROTID ARTERY. Assessment and Plan - Diagnosis (1) Acute systolic congestive heart failure, NYHA class 2 Is this a current diagnosis for this admission?: Yes Plan: Per previous provider: "Marginal BPs. On dopamine and dobutamine drip. Euvolemic. Denies any anginal symptoms. Adherent and compliant with his medical management. Acute on chronic systolic heart failure. Most likely due to noncompliance. On admission was complaining of dyspnea on exertion, orthopnea, paroxysmal nocturnal dyspnea. On admission no JVD, benign lung examination, 1+ pitting edema bilateral lower extremities. On admission proBNP 21,100, up from 5000 on 03/23/2020. 03/23/2019. 2D echo LVEF 30%. Left ventricular apex akinetic. Mild anterior septal, mid anterior wall akinetic. Rest of left ventricular armstrong are all hypokinetic. Mild tricuspid regurgitation. 10/10/2019. Repeat echo LVEF 20 to 25%. Continue telemetry Continue beta-blockers, uptitrate as tolerated. Continue ARB, uptitrate as tolerated. Continue diuretics guided by volume status and vitals. Strict in and outs. Daily weights. Fluid restriction. Cardiology consulted. Recommendations noted. As per cardiology recommendation patient will need to undergo stress test once stabilized followed by either left heart cath for LVAD placement. Transferred to [facility] on 10/13/2021 started on IV dobutamine and dopamine as per cardiology recommendation. Patient was hospitalized at [facility] on 2018. Was diagnosed with severely reduced systolic ejection fraction. Was discharged on lisinopril, carvedilol and Lasix. Patient stopped taking her lisinopril after finding out that his friend had facial swelling while taking lisinopril. He also stopped carvedilol stating that it was making him retain urine and causing flank pain. Note: Patient is not allergic to carvedilol. Patient states that he stopped taking carvedilol because it was making him retain urine and causing flank pain." 10/17: Continued on cardiac medications as above as outlined by cardiology. He is having AICD arranged outpatient. Extensive discussion with patient and his family about the necessity of cardiac medications. 10/18: Patient states he is going to need a pacemaker and is planning a stress test per cardiology, overall symptomatology is improved today and he is in much better spirits. No new complaints 10/19: Asymptomatic today other than some very mild fatigue. NST done this morning but no results yet. LifeVest ordered by import export manager but has not been delivered here yet. 10/20: Pt discharged, but unfortunately the [employer] staff has not been by to train the patient on its use. This is all we are waiting on for the patient to go home. Discharge is otherwise completely done. (2) Depression Is this a current diagnosis for this admission?: Yes (3) Elevated troponin Is this a current diagnosis for this admission?: Yes (4) Hypertension Is this a current diagnosis for this admission?: Yes (5) Hyperlipidemia Is this a current diagnosis for this admission?: Yes - Time Time Spent with patient: 15-24 minutes Medications reviewed and adjusted accordingly: Yes Anticipated discharge: Home Within: within 24 hours
[2019-10-21] MEDS: IPRATROPIUM BROMIDE 0.02% NEB 0.5 MG/2.5 ML AMPUL NEB SCH ×3 (08:39→20:40)
[2019-10-21] MEDS: ENOXAPARIN SODIUM INJ 40 MG/0.4 ML DISP.SYRIN SUBCUT SCH (09:04)
[2019-10-21] MEDS: PANTOPRAZOLE SODIUM 40 MG TABLET.DR PO SCH (09:22)
[2019-10-21] MEDS: FUROSEMIDE 20 MG TABLET PO SCH ×2 (09:22→17:25)
[2019-10-21] MEDS: MIDODRINE HCL 5 MG TABLET PO SCH ×3 (09:22→17:25)
[2019-10-21] MEDS: METOPROLOL SUCCINATE 25 MG TAB.SR.24H PO SCH (09:22)
[2019-10-21] MEDS: ASPIRIN 81 MG TABLET, ENT COATED PO SCH (09:22)
--- NOTE | 2019-10-21 11:19 | Progress Note ---
Provider Note Provider Note: CARDIOLOGY PROGRESS NOTE by Dr. Mari Coronado on 10/21/2019. OBJECTIVE: The patient has episodes of anxiety which are controlled with oral anti-anxiolytic agents, given on as-needed basis. He denies any chest pain discomfort. There is no shortness of breath. There is no PND orthopnea or leg edema. There is no further ventricular arrhythmias. The patient still awaiting LifeVest. There is no TIA CVA symptoms. His blood pressure seems to be slightly better. PHYSICAL EXAMINATION: The patient is well-built. In no acute distress. Selected Entries 10/21/19 11:05 Temperature 97.1 F Temperature Axillary Source Pulse Rate 90 Respiratory 18 Rate Blood Pressure 112/93 H Blood Pressure 99 Mean BP Location Left Arm BP Position Sitting O2 Sat by Pulse 99 Oximetry Oxygen Delivery Room Air Method HEAD: Is atraumatic normocephalic. EYES: Pupils are equal round regular reactive to light accommodation. Extraocular movements are normal. There is no conjunctival pallor. There is no scleral icterus. ENT is negative. Neck is supple. There is mild JVD present. Carotids are equal there is no bruit. There is no accessory muscle respiration use. There is no lymphadenopathy. There is no goiter. Trachea central. LUNGS: Shows a few bibasilar rales of CHF. There is no hyperresonance or dullness. On palpation there is no chest wall tenderness. HEART: S1-S2 is heard. There is no S3 gallop. There is no S4 gallop. There is systolic murmur of mitral regurgitation and tricuspid regurgitation present. There is no aortic stenosis murmur. There is no aortic regurgitation murmur. There is no rub. ABDOMEN: Soft there is mild abdominal wall edema. There is NO HEPATOSPLENOMEGALY. BOWEL SOUNDS WELL HEARD. THERE IS NO TENDER AREAS MASSES. Extremities: There is is trace pedal edema bilaterally. There is chronic venous stasis dermatitis changes. Leg pulses are difficult to palpate due to edema. Femorals are well felt. There is no femoral bruits. There is no DVT or cellulitis. There is no calf tenderness. There is no cyanosis or clubbing. BASE REMOVER: The patient is conscious awake alert oriented times with no focal deficits. PSYCHIATRIC: The patient judgment insight are intact his affect is normal. THE patient's total 24-hour intake is 980 mL. His total 24-hour output is 325 mL. Note the patient does not have a Avila catheter. Hence the patient's intake and output is most likely not reliablely accurate. IMPRESSION/RECOMMENDATIONS: 1. Relative Hypotension: This is secondary to poor cardiac output due to the patient's severe cardiomyopathy. Although his blood pressure is in the mid 90s. He is able to tolerate beta-deandra dose and ARB dose. He is off inotropes. 2. Acute on chronic systolic heart failure. At present seems to be well compensated. Continue the patient's beta-deandra, ARB and midodrine. 3. Cardiomyopathy with severely reduced LV ejection fraction. The patient had to be transferred for dobutamine and dopamine drip. His blood pressure still marginal. 4. Peripheral vascular disease with history of intra-abdominal aortic aneurysm: At present it is a 4.2 cm. Will later get a vascular surgery consult. This can be done as an outpatient. 5. Need to assess for underlying coronary artery disease. The patient's Stress test which is abnormal is consistent with there being no reversible ischemia. 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 Hence 6. Bifascicular block. 7. Episode of confusion: Left carotid is normal. Unable to Doppler the right carotid due to the IJ and the dressing. Will recheck right carotid Doppler lat er on. 8. Anxiety and depression: This seems to have improved. Still no psychiatric evaluation seen. The patient seems less depressed. Patient's anxiety is controlled with as needed oral anti-anxiolytic agents. 9. In view of the patient's severely reduced LV ejection fraction, and history of 1 episode of nonsustained ventricular tachycardia the patient is at high risk for sudden . Patient awaiting [employer] financial services representative to educate him on the use of LifeVest. Medications reviewed. Medical regimen and management plan discussed with attending provider on the case. Medical decision making is of moderate complexity. Patient awaiting [employer] financial services representative educated him about the LifeVest. The patient will be discharged once LifeVest is placed. Will follow the patient in the office and refer him for outpatient AICD placement. The patient has my contact numbers. Will sign off.
--- NOTE | 2019-10-21 12:06 | PDOC DISCHARGE SUMMARY ---
Impression - Admit/DC Date/PCP Admission Date/Primary Care Provider: 10/10/19 15:35 KAVITHA JAIN MD Discharge Date: 10/21/19 - Discharge Diagnosis (1) Acute systolic congestive heart failure, NYHA class 2 Is this a current diagnosis for this admission?: Yes (2) Depression Is this a current diagnosis for this admission?: Yes (3) Elevated troponin Is this a current diagnosis for this admission?: Yes (4) Hypertension Is this a current diagnosis for this admission?: Yes (5) Hyperlipidemia Is this a current diagnosis for this admission?: Yes - Additional Information Resuscitation Status: Full Code Discharge Diet: Cardiac Discharge Activity: Activity As Tolerated, Balance Activity w/Rest, Weigh Daily Referrals: KAVITHA JAIN MD [Primary Care Provider] - 11/09/19 2:00 pm ANISH CARRANZA MD [ACTIVE STAFF] - 10/24/19 11:45 am Prescriptions: Losartan Potassium [Cozaar 25 mg Tablet] 25 mg PO Q12A #30 tablet Clonazepam [Klonopin 1 mg Tablet] 0.25 mg PO Q8H PRN #9 tablet PRN Reason: Furosemide [Lasix 20 mg Tablet] 20 mg PO BID #60 tablet Atorvastatin Calcium [Lipitor 20 mg Tablet] 20 mg PO QHS #30 tablet Midodrine HCl [Proamatine 5 mg Tablet] 10 mg PO TID #180 tablet Pantoprazole Sodium [Protonix [address] Tablet] 40 mg PO DAILY #30 tablet.dr Tiotropium Sherman [Spiriva Respimat] 4 gm IH DAILY #1 mist.inhal Metoprolol Succinate [Toprol Xl 25 mg Tab.sr] 25 mg PO DAILY #30 tab.sr.24h Home Medications: Aspirin [Ecotrin 81 mg EC Tablet] 81 mg PO DAILY 30 Days #30 tabec 03/23/19 Atorvastatin Calcium [Lipitor 20 mg Tablet] 20 mg PO QHS #30 tablet 10/20/19 Clonazepam [Klonopin 1 mg Tablet] 0.25 mg PO Q8H PRN #9 tablet 10/20/19 Furosemide [Lasix 20 mg Tablet] 20 mg PO BID #60 tablet 10/20/19 Losartan Potassium [Cozaar 25 mg Tablet] 25 mg PO Q12A #30 tablet 10/20/19 Metoprolol Succinate [Toprol Xl 25 mg Tab.sr] 25 mg PO DAILY #30 tab.sr.24h 09/28 01/14 Midodrine HCl [Proamatine 5 mg Tablet] 10 mg PO TID #180 tablet 10/20/19 Pantoprazole Sodium [Protonix [address] Tablet] 40 mg PO DAILY #30 tablet.dr 10/20/19 Tiotropium Sherman [Spiriva Respimat] 4 gm IH DAILY #1 mist.inhal 10/20/19 History of Present Illiness History of Present Illness: Patient is a 78-year-old white male who presented with acute combined CHF exacerbation as he stopped taking multiple cardiac medications over concerns of side effects. 10/17: No acute events overnight, labs and vitals appear stable at this point. Psychiatry has not seen patient yet though consult has been placed. Patient makes rambling strange statements but does not appear anxious or depressed. Family at bedside. 10/18: Patient more ambulatory, up and about today, states he feels significantly improved. He states his operational meteorologist came by to see him and would like him to have a stress test while he is here. Await their note evaluation today. Expect patient can be discharged in the next 48 hours if he continues to improve. 10/19: Long discussion with patient and his granddaughter today. 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 He states a stress test went well today and we are awaiting results. He is also waiting on a LifeVest to be delivered to the hospital and he cannot be discharged until he has this on his person. 10/20: Patient has no new complaints other than intermittent panic attacks related to his P. He is ready for discharge with the exception of getting his LifeVest training done in the individual that is to do this is not here for some reason. Hospital Course Hospital Course: (1) Acute systolic congestive heart failure, NYHA class 2 Is this a current diagnosis for this admission?: Yes Plan: Per previous provider: "Marginal BPs. On dopamine and dobutamine drip. Euvolemic. Denies any anginal symptoms. Adherent and compliant with his medical management. Acute on chronic systolic heart failure. Most likely due to noncompliance. On admission was complaining of dyspnea on exertion, orthopnea, paroxysmal nocturnal dyspnea. On admission no JVD, benign lung examination, 1+ pitting edema bilateral lower extremities. On admission proBNP 21,100, up from 5000 on 03/23/2020. 03/23/2019. 2D echo LVEF 30%. Left ventricular apex akinetic. Mild anterior septal, mid anterior wall akinetic. Rest of left ventricular armstrong are all hypokinetic. Mild tricuspid regurgitation. 10/10/2019. Repeat echo LVEF 20 to 25%. Continue telemetry Continue beta-blockers, uptitrate as tolerated. Continue ARB, uptitrate as tolerated. Continue diuretics guided by volume status and vitals. Strict in and outs. Daily weights. Fluid restriction. Cardiology consulted. Recommendations noted. As per cardiology recommendation patient will need to undergo stress test once stabilized followed by either left heart cath for LVAD placement. Transferred to [facility] on 10/13/2021 started on IV dobutamine and dopamine as per cardiology recommendation. Patient was hospitalized at [facility] on 2018. Was diagnosed with severely reduced systolic ejection fraction. Was discharged on lisinopril, carvedilol and Lasix. Patient stopped taking her lisinopril after finding out that his friend had facial swelling while taking lisinopril. He also stopped carvedilol stating that it was making him retain urine and causing flank pain. Note: Patient is not allergic to carvedilol. Patient states that he stopped taking carvedilol because it was making him retain urine and causing flank pain." 10/17: Continued on cardiac medications as above as outlined by cardiology. He is having AICD arranged outpatient. Extensive discussion with patient and his family about the necessity of cardiac medications. 10/18: Patient states he is going to need a pacemaker and is planning a stress te st per cardiology, overall symptomatology is improved today and he is in much better spirits. No new complaints 10/19: Asymptomatic today other than some very mild fatigue. NST done this morning but no results yet. LifeVest ordered by operational meteorologist but has not been delivered here yet. 10/20: Pt discharged, but unfortunately the LifeVest staff has not been by to train the patient on its use. This is all we are waiting on for the patient to go home. Discharge is otherwise completely done. (2) Depression and PTSD Is this a current diagnosis for this admission?: Yes -FU psychiatry (3) Elevated troponin Is this a current diagnosis for this admission?: Yes (4) Hypertension Is this a current diagnosis for this admission?: Yes -BP LLN on multiple cardiac meds (5) Hyperlipidemia Is this a current diagnosis for this admission?: Yes Physical Exam Vital Signs: Temp Pulse Resp BP Pulse Ox 97.2 F 70 16 101/77 96 10/21/19 07:45 10/21/19 08:40 10/21/19 08:40 10/21/19 07:45 10/21/19 08:40 Intake & Output 10/20/19 10/21/19 10/22/19 06:59 06:59 06:59 Intake Total 1087 980 Output Total 450 325 Balance 637 655 Weight 80.8 kg 80.6 kg General appearance: PRESENT: no acute distress, well-developed, well-nourished Head exam: PRESENT: atraumatic, normocephalic Eye exam: PRESENT: conjunctiva pink Mouth exam: PRESENT: moist Respiratory exam: PRESENT: clear to auscultation joslyn. ABSENT: rales, rhonchi, wheezes Cardiovascular exam: PRESENT: RRR. ABSENT: diastolic murmur, rubs, systolic murmur GI/Abdominal exam: PRESENT: normal bowel sounds, soft. ABSENT: distended, guarding, mass, organolmegaly, rebound, tenderness Musculoskeletal exam: PRESENT: ambulatory Neurological exam: PRESENT: alert, awake Psychiatric exam: PRESENT: appropriate affect, normal mood Skin exam: PRESENT: dry, intact, warm Results Laboratory Results: WBC 5.6 10^3/uL (4.0-10.5) 10/19/19 06:00 RBC 4.79 10^6/uL (4.35-5.55) 10/19/19 06:00 Hgb 13.9 g/dL (13.5-17.0) 10/19/19 06:00 Hct 42.9 % (37.9-51.0) 10/19/19 06:00 MCV 90 fl (80-97) 10/19/19 06:00 MCH 29.0 pg (27.0-33.4) 10/19/19 06:00 MCHC 32.4 g/dL (32.0-36.0) 10/19/19 06:00 RDW 15.7 % (11.5-14.0) H 10/19/19 06:00 Plt Count 92 10^3/uL (150-450) L 10/19/19 06:00 Lymph % (Auto) 22.1 % (13-45) 10/19/19 06:00 [place] % (Auto) 10.0 % (3-13) 10/19/19 06:00 Eos % (Auto) 1.4 % (0-6) 10/19/19 06:00 Baso % (Auto) 0.7 % (0-2) 10/19/19 06:00 Absolute Neuts (auto) 3.7 10^3/uL (1.7-8.2) 10/19/19 06:00 Absolute Lymphs (auto) 1.2 10^3/uL (0.5-4.7) 10/19/19 06:00 Absolute Monos (auto) 0.6 10^3/uL (0.1-1.4) 10/19/19 06:00 Absolute Eos (auto) 0.1 10^3/uL (0.0-0.6) 10/19/19 06:00 Absolute Basos (auto) 0.0 10^3/uL (0.0-0.2) 10/19/19 06:00 Seg Neutrophils % 65.8 % (42-78) 10/19/19 06:00 Sodium 138.5 mmol/L (137-145) 10/17/19 05:30 Potassium 4.4 mmol/L (3.6-5.0) 10/17/19 05:30 Chloride 101 mmol/L (98-107) 10/17/19 05:30 Carbon Dioxide 28 mmol/L (22-30) 10/17/19 05:30 Anion Gap 10 (5-19) 10/17/19 05:30 BUN 17 mg/dL (7-20) 10/17/19 05:30 Creatinine 0.98 mg/dL (0.52-1.25) 10/17/19 05:30 Est GFR ( Amer) > 60 (>60) 10/17/19 05:30 Est GFR (MDRD) Non-Af > 60 (>60) 10/17/19 05:30 Glucose 99 mg/dL (75-110) 10/17/19 05:30 POC Glucose 99 mg/dL (70-110) 10/12/19 10:31 Hemoglobin A1c % 6.1 % (4.7-6.0) H 10/10/19 11:07 Calcium 9.2 mg/dL (8.4-10.2) 10/17/19 05:30 Magnesium 2.4 mg/dL (1.6-2.3) H 10/17/19 05:30 Total Bilirubin 1.5 mg/dL (0.2-1.3) H 10/14/19 05:05 Direct Bilirubin 0.6 mg/dL (0.0-0.4) H 10/14/19 05:05 Neonat Total Bilirubin Not Reportable 10/14/19 05:05 Neonat Direct Bilirubin Not Reportable 10/14/19 05:05 Neonat Indirect Bili Not Reportable 10/14/19 05:05 AST 63 U/L (17-59) H 10/14/19 05:05 ALT 48 U/L (<50) 10/14/19 05:05 Alkaline Phosphatase 97 U/L (38-126) 10/14/19 05:05 Troponin I 0.156 ng/mL 10/11/19 02:20 NT-Pro-B Natriuret Pep 80802 pg/mL (<450) H 10/10/19 11:07 Total Protein 5.9 g/dL (6.3-8.2) L 10/14/19 05:05 Albumin 3.3 g/dL (3.5-5.0) L 10/14/19 05:05 TSH 1.88 uIU/mL (0.47-4.68) 10/10/19 11:07 Urine Color YELLOW 10/10/19 11:16 Urine Appearance SLIGHTLY-CLOUDY 10/10/19 11:16 Urine pH 5.0 (5.0-9.0) 10/10/19 11:16 Ur Specific [place] 1.012 10/10/19 11:16 Urine Protein 100 mg/dL (NEGATIVE) H 10/10/19 11:16 Urine Glucose (UA) NEGATIVE mg/dL (NEGATIVE) 10/10/19 11:16 Urine Ketones NEGATIVE mg/dL (NEGATIVE) 10/10/19 11:16 Urine Blood MODERATE (NEGATIVE) H 10/10/19 11:16 Urine Nitrite NEGATIVE (NEGATIVE) 10/10/19 11:16 Urine Bilirubin NEGATIVE (NEGATIVE) 10/10/19 11:16 Urine Urobilinogen 2.0 mg/dL (<2.0) H 10/10/19 11:16 Ur Leukocyte Esterase NEGATIVE (NEGATIVE) 10/10/19 11:16 Urine WBC (Auto) 1 /HPF 10/10/19 11:16 Urine RBC (Auto) 9 /HPF 10/10/19 11:16 U Hyaline Cast (Auto) 91 /LPF 10/10/19 11:16 Squamous Epi Cells Auto <1 /HPF 10/10/19 11:16 Urine Mucus (Auto) OCC /LPF 10/10/19 11:16 Urine Ascorbic Acid NEGATIVE (NEGATIVE) 10/10/19 11:16 10/10/19 10/10/19 10/10/19 11:07 14:05 20:45 Troponin I 0.138 0.133 0.161 NT-Pro-B Natriuret Pep 83581 H 10/11/19 02:20 Troponin I 0.156 NT-Pro-B Natriuret Pep Impressions: Chest X-Ray 10/10/19 10:47 IMPRESSION: Trace bilateral pleural effusions Minimal bibasilar atelectasis Calcific rim of infrarenal abdominal aortic aneurysm at the bottom edge of the field of view Chest X-Ray 10/13/19 15:56 IMPRESSION: The tip of the right IJ central venous catheter projects within the SVC. Otherwise unchanged radiographic appearance of the chest. Abdomen Ultrasound 10/17/19 00:00 IMPRESSION: 4.2 CM ABDOMINAL AORTIC ANEURYSM. Carotid Doppler Study 10/17/19 00:00 IMPRESSION: LIMITED STUDY. UNABLE TO EVALUATE THE RIGHT INTERNAL CAROTID ARTERY AND RIGHT VERTEBRAL ARTERY. NO HEMODYNAMICALLY SIGNIFICANT STENOSIS IN THE LEFT INTERNAL CAROTID ARTERY. Plan Plan of Treatment: Follow-up PCP Follow-up operational meteorologist Follow-up psychiatrist LifeVest given at discharge Time Spent: Greater than 30 Minutes Stroke Is this a Stroke Patient?: No Acute Heart Failure - Is this a Heart Failure Patient?: Yes Documentation of LVEF assessment?: Yes LVEF < 40%?: Yes-if yes answer questions a through e a) Discharged on ACEI?: N/A Discharged on ARB b) Discharges on ARB?: Yes c) Discharged on ARNI?: No-Document Contraindications Reason(s) not discharged on ARNI: Hypotension d) Discharged on evidence-based Beta deandra(carvedilol, sustained release m etoprolol succinate, or bisoprolol)?: Yes e) For LVEF <35%, discharged on Aldosterone antagonist?: Yes 3. Anticoagulant therapy for permanect/persistent/paraoxysmal Afib or Aflutter: N/A
[2019-10-21] MEDS: ACETAMINOPHEN 325 MG TABLET PO PRN (20:28)
[2019-10-21] MEDS ORDERED: CLONAZEPAM 1 MG TABLET PO PRN ×2 (20:49→21:00)
[2019-10-21] MEDS: ATORVASTATIN CALCIUM 20 MG TABLET PO SCH (21:16)
[2019-10-22] MEDS: LOSARTAN POTASSIUM 25 MG TABLET PO SCH (05:31)
[2019-10-22 07:31] VITALS: BP 92/50
[2019-10-22] MEDS: IPRATROPIUM BROMIDE 0.02% NEB 0.5 MG/2.5 ML AMPUL NEB SCH (08:43)
[2019-10-22] MEDS: MIDODRINE HCL 5 MG TABLET PO SCH (10:08)
[2019-10-22] MEDS: PANTOPRAZOLE SODIUM 40 MG TABLET.DR PO SCH (10:08)
[2019-10-22] MEDS: FUROSEMIDE 20 MG TABLET PO SCH (10:08)
[2019-10-22] MEDS: ASPIRIN 81 MG TABLET, ENT COATED PO SCH (10:08)
[2019-10-22] MEDS: METOPROLOL SUCCINATE 25 MG TAB.SR.24H PO SCH (10:08)
[2019-10-22] MEDS: ENOXAPARIN SODIUM INJ 40 MG/0.4 ML DISP.SYRIN SUBCUT SCH (10:16)
--- NOTE | 2019-10-22 12:16 | PDOC PROGRESS REPORT ---
Subjective Progress Note for:: 10/22/19 Subjective:: Patient is a 78-year-old white male who presented with acute combined CHF exacerbation as he stopped taking multiple cardiac medications over concerns of side effects. 10/17: No acute events overnight, labs and vitals appear stable at this point. Psychiatry has not seen patient yet though consult has been placed. Patient makes rambling strange statements but does not appear anxious or depressed. Family at bedside. 10/18: Patient more ambulatory, up and about today, states he feels significantly improved. He states his concrete polisher came by to see him and would like him to have a stress test while he is here. Await their note evaluation today. Expect patient can be discharged in the next 48 hours if he continues to improve. 10/19: Long discussion with patient and his granddaughter today. 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 He states a stress test went well today and we are awaiting results. He is also waiting on a LifeVest to be delivered to the hospital and he cannot be discharged until he has this on his person. 10/20: Patient has no new complaints other than intermittent panic attacks related to his P. He is ready for discharge with the exception of getting his LifeVest training done in the individual that is to do this is not here for some reason. 10/22: Patient was discharged yesterday however the [employer] had not been to see him yet. He has a LifeVest on today and the branch service representative was in the room teaching him how to use it during my encounter. He is anxious to go home understandably so. Reason For Visit: ACUTE CHF EXACERBATION Physical Exam Vital Signs: Temp Pulse Resp BP Pulse Ox 97.3 F 75 16 92/50 L 95 10/22/19 07:24 10/22/19 08:45 10/22/19 08:45 10/22/19 07:24 10/22/19 08:45 Intake & Output 10/21/19 10/22/19 10/23/19 06:59 06:59 06:59 Intake Total 980 951 Output Total 325 0 Balance 655 951 Weight 80.6 kg 82.8 kg General appearance: PRESENT: no acute distress, well-developed, well-nourished Head exam: PRESENT: atraumatic, normocephalic Eye exam: PRESENT: conjunctiva pink Mouth exam: PRESENT: moist Respiratory exam: PRESENT: clear to auscultation joslyn. ABSENT: rales, rhonchi, wheezes Cardiovascular exam: PRESENT: RRR. ABSENT: diastolic murmur, rubs, systolic murmur GI/Abdominal exam: PRESENT: normal bowel sounds, soft. ABSENT: distended, guarding, mass, organolmegaly, rebound, tenderness Musculoskeletal exam: PRESENT: ambulatory Neurological exam: PRESENT: alert, awake Psychiatric exam: PRESENT: appropriate affect, normal mood Skin exam: PRESENT: dry, intact, warm Results Laboratory Results: 10/19/19 06:00 10/17/19 05:30 10/10/19 10/10/19 10/10/19 11:07 14:05 20:45 Troponin I 0.138 0.133 0.161 NT-Pro-B Natriuret Pep 05842 H 10/11/19 02:20 Troponin I 0.156 NT-Pro-B Natriuret Pep Impressions: Chest X-Ray 10/13/19 15:56 IMPRESSION: The tip of the right IJ central venous catheter projects within the SVC. Otherwise unchanged radiographic appearance of the chest. Abdomen Ultrasound 10/17/19 00:00 IMPRESSION: 4.2 CM ABDOMINAL AORTIC ANEURYSM. Carotid Doppler Study 10/17/19 00:00 IMPRESSION: LIMITED STUDY. UNABLE TO EVALUATE THE RIGHT INTERNAL CAROTID ARTERY AND RIGHT VERTEBRAL ARTERY. NO HEMODYNAMICALLY SIGNIFICANT STENOSIS IN THE LEFT INTERNAL CAROTID ARTERY. Assessment and Plan - Diagnosis (1) Acute systolic congestive heart failure, NYHA class 2 Is this a current diagnosis for this admission?: Yes Plan: Per previous provider: "Marginal BPs. On dopamine and dobutamine drip. Euvolemic. Denies any anginal symptoms. Adherent and compliant with his medical management. Acute on chronic systolic heart failure. Most likely due to noncompliance. On admission was complaining of dyspnea on exertion, orthopnea, paroxysmal nocturnal dyspnea. On admission no JVD, benign lung examination, 1+ pitting edema bilateral lower extremities. On admission proBNP 21,100, up from 5000 on 03/23/2020. 03/23/2019. 2D echo LVEF 30%. Left ventricular apex akinetic. Mild anterior septal, mid anterior wall akinetic. Rest of left ventricular armstrong are all hypokinetic. Mild tricuspid regurgitation. 10/10/2019. Repeat echo LVEF 20 to 25%. Continue telemetry Continue beta-blockers, uptitrate as tolerated. Continue ARB, uptitrate as tolerated. Continue diuretics guided by volume status and vitals. Strict in and outs. Daily weights. Fluid restriction. Cardiology consulted. Recommendations noted. As per cardiology recommendation patient will need to undergo stress test once stabilized followed by either left heart cath for LVAD placement. Transferred to [facility] on 10/13/2021 started on IV dobutamine and dopamine as per cardiology recommendation. Patient was hospitalized at [facility] on 2018. Was diagnosed with severely reduced sy stolic ejection fraction. Was discharged on lisinopril, carvedilol and Lasix. Patient stopped taking her lisinopril after finding out that his friend had facial swelling while taking lisinopril. He also stopped carvedilol stating that it was making him retain urine and causing flank pain. Note: Patient is not allergic to carvedilol. Patient states that he stopped taking carvedilol because it was making him retain urine and causing flank pain." 10/17: Continued on cardiac medications as above as outlined by cardiology. He is having AICD arranged outpatient. Extensive discussion with patient and his family about the necessity of cardiac medications. 10/18: Patient states he is going to need a pacemaker and is planning a stress test per cardiology, overall symptomatology is improved today and he is in much better spirits. No new complaints 10/19: Asymptomatic today other than some very mild fatigue. NST done this morning but no results yet. LifeVest ordered by concrete polisher but has not been delivered here yet. 10/20: Pt discharged, but unfortunately the LifeVest staff has not been by to train the patient on its use. This is all we are waiting on for the patient to go home. Discharge is otherwise completely done. LifeVest given to patient on day of discharge 10/22 after waiting multiple days for the branch service representative to bring the equipment and teach him to use it. (2) Depression Is this a current diagnosis for this admission?: Yes (3) Elevated troponin Is this a current diagnosis for this admission?: Yes (4) Hypertension Is this a current diagnosis for this admission?: Yes (5) Hyperlipidemia Is this a current diagnosis for this admission?: Yes - Time Time Spent with patient: 15-24 minutes Medications reviewed and adjusted accordingly: Yes Anticipated discharge: Home Within: within 24 hours
== END 2019-10-22 11:15 | disposition home health service (06) | DRG 293 ==
LOC: ER 10:01 → EH 15:35 → OBSVTOIN 15:35 → 4N 19:43 → 3W 10-13 12:56
PROVIDERS: ADMIT Internal Medicine; ATTEND Internal Medicine
PROC: 02HV33Z Insertion of Infusion Device into Superior Vena Cava, Percutaneous Approach (ICD-10-PCS; principal; 2019-10-13)
DX: I11.0 Hypertensive heart disease with heart failure (principal); T44.7X6A Underdosing of beta-adrenoreceptor antagonists, initial encounter; T46.4X6A Underdosing of angiotensin-converting-enzyme inhibitors, initial encounter; I50.23 Acute on chronic systolic (congestive) heart failure; I42.9 Cardiomyopathy, unspecified; I95.89 Other hypotension; R79.89 Other specified abnormal findings of blood chemistry; I25.10 Atherosclerotic heart disease of native coronary artery without angina pectoris; E78.5 Hyperlipidemia, unspecified; F41.0 Panic disorder [episodic paroxysmal anxiety]; I73.9 Peripheral vascular disease, unspecified; F32.9 Major depressive disorder, single episode, unspecified; Z91.128 Patient's intentional underdosing of medication regimen for other reason; Z86.711 Personal history of pulmonary embolism; Z87.891 Personal history of nicotine dependence; Z88.0 Allergy status to penicillin; Z88.8 Allergy status to other drugs, medicaments and biological substances
CPT/HCPCS: 36415; 71045; 71046; 76706; 78452; 80048; 80053; 81001; 82962; 83036; 83735; 83880; 84132; 84443; 84484; 85025; 93005; 93010; 93017; 93306; 93880; 94640; 96372; 96374; 99285; A9500; G0378; J1250; J1265; J1642; J1650; J1940; J2550; J2785; J3490; Q9969

== ENCOUNTER 2019-10-22 21:40 | Emergency (ER) | payer OTHER, MEDICARE ==
--- NOTE | 2019-10-22 22:45 | ER Document Report ---
ED Medical Screen (RME) - General Chief Complaint: Shortness Of Breath Stated Complaint: SHORTNESS OF BREATH/WEAKNESS Time Seen by Provider: 10/22/19 22:34 Primary Care Provider: KAVITHA JAIN MD [Primary Care Provider] - Follow up as needed Mode of Arrival: Wheelchair Information source: Patient, Relative Notes: 78-year-old male with history of heart problems CHF, hypo-tension and PE presents to the emergency department with complaints of chest pain and shortness of breath. Denies fever vomiting diarrhea. Patient has a Holter monitor on that was placed today. Patient also reports that 1 of the medications that is supposed to keep his blood pressure up was not filled at the pharmacy today and he has not had it. He is not sure what the name of the medication is. Ports he cannot walk without getting extremely short of breath. He family also reports he is a little bit confused. I have greeted and performed a rapid initial assessment of this patient. A comprehensive ED assessment and evaluation of the patient, analysis of test results and completion of the medical decision making process will be conducted by additional ED providers. TRAVEL OUTSIDE OF THE [place] IN LAST 30 DAYS: No - Related Data Allergies/Adverse Reactions: carvedilol Allergy (Verified 10/10/19 16:02) Penicillins Allergy (Verified 10/10/19 10:37) Past Medical History - Past Medical History Cardiac Medical History: Reports: Hx Congestive Heart Failure, Hx Pulmonary Embolism Renal/ Medical History: Denies: Hx Peritoneal Dialysis Musculoskeltal Medical History: Denies Hx Arthritis Psychiatric Medical History: Reports: Hx Depression Past Surgical History: Reports: Hx Abdominal Surgery Physical Exam - Vital signs Vitals: Temp Pulse Resp BP Pulse Ox 97.4 F 80 20 97/79 L 99 10/22/19 21:53 10/22/19 21:53 10/22/19 21:53 10/22/19 21:53 10/22/19 21:53 Course - Vital Signs Vital signs: Temp Pulse Resp BP Pulse Ox 97.4 F 80 20 97/79 L 99 10/22/19 21:53 10/22/19 21:53 10/22/19 21:53 10/22/19 21:53 10/22/19 21:53 Doctor's Discharge - Discharge Referrals: KAVITHA JAIN MD [Primary Care Provider] - Follow up as needed
[2019-10-22 23:52] LABS: ABSOLUTE BASOPHILS # (AUTO) 0.1 10^3/uL (0.0-0.2); ABSOLUTE EOSINOPHILS # (AUTO) 0.1 10^3/uL (0.0-0.6); ABSOLUTE LYMPHOCYTES (AUTO) 1.2 10^3/uL (0.5-4.7); ABSOLUTE MONOCYTES (AUTO) 0.7 10^3/uL (0.1-1.4); ABSOLUTE NEUT (AUTO) 5.3 10^3/uL (1.7-8.2); BASOPHILS % (AUTO) 0.8 % (0-2); EOSINOPHILS % (AUTO) 1.3 % (0-6); HEMATOCRIT 44.9 % (37.9-51.0); HEMOGLOBIN 14.9 g/dL (13.5-17.0); MEAN CORPUSCULAR HEMOGLOBIN 29.8 pg (27.0-33.4); MEAN CORPUSCULAR HGB CONC 33.3 g/dL (32.0-36.0); MEAN CORPUSCULAR VOLUME 90 fl (80-97); MONOCYTES % (AUTO) 9.2 % (3-13); RED BLOOD COUNT 5.01 10^6/uL (4.35-5.55); RED CELL DISTRIBUTION WIDTH 15.4 % (11.5-14.0); SEGMENTED NEUTROPHILS % (AUTO) 72.7 % (42-78); TOTAL CELLS COUNTED % (AUTO) 100 %; WHITE BLOOD COUNT 7.3 10^3/uL (4.0-10.5)
--- NOTE | 2019-10-22 23:52 | RADIOLOGY REPORT (SQ) ---
EXAM DESCRIPTION: XR CHEST 1 VIEW COMPLETED DATE/TME: 10/22/2019 22:41 CLINICAL HISTORY: cp sob COMPARISON: 10/13/2019 FINDINGS: Single frontal view of the chest. Cardiomediastinal silhouette: Cardiac megaly. Lungs: Bilateral pleural effusions and bibasilar opacities. No pneumothorax. Bones: Degenerative change of the spine and shoulders. External defibrillator. Upper abdomen: No abnormality identified. IMPRESSION: 1. Small bilateral pleural effusions and bibasilar opacities likely representing atelectasis or consolidation. 2. Cardiomegaly.
[2019-10-22 23:53] LABS: ALBUMIN 3.8 g/dL (3.5-5.0); ALKALINE PHOSPHATASE 178 U/L (38-126); ANION GAP 11 (5-19); ASPARTATE AMINO TRANSFERASE 81 U/L (17-59); BILIRUBIN,DIRECT 0.7 mg/dL (0.0-0.4); BILIRUBIN,TOTAL 1.7 mg/dL (0.2-1.3); BLOOD UREA NITROGEN 31 mg/dL (7-20); CALCIUM 9.6 mg/dL (8.4-10.2); CARBON DIOXIDE 26 mmol/L (22-30); CHLORIDE 100 mmol/L (98-107); GLUCOSE 109 mg/dL (75-110); POTASSIUM 4.4 mmol/L (3.6-5.0); TOTAL PROTEIN 6.3 g/dL (6.3-8.2)
[2019-10-23 00:04] LABS: PLATELET COUNT 98 10^3/uL (150-450)
[2019-10-23 03:03] LABS: APPEARANCE,URINE SLIGHTLY-CLOUDY; BILIRUBIN,URINE NEGATIVE (NEGATIVE); COLOR,URINE AMBER; GLUCOSE, URINE NEGATIVE (NEGATIVE); KETONES,URINE NEGATIVE (NEGATIVE); LEUKOCYTE ESTERASE,URINE NEGATIVE (NEGATIVE); NITRITE,URINE NEGATIVE (NEGATIVE); PROTEIN,URINE 100 mg/dL (NEGATIVE); URINE SPECIFIC GRAVITY 1.016
--- NOTE | 2019-10-23 03:31 | ER Document Report ---
Entered by HANNAH RAMOS SCRIBE 10/23/19 0111 Acting as scribe for:KRISTOFER WASHBURN IV, MD ED General - General Chief Complaint: General Weakness Stated Complaint: SHORTNESS OF BREATH/WEAKNESS Time Seen by Provider: 10/22/19 22:34 Primary Care Provider: KAVITHA JAIN MD [Primary Care Provider] - Follow up as needed Mode of Arrival: Wheelchair Notes: This 78 year old male patient presents to the emergency department tonight because he could not get all of the prescriptions that he was sent home on today filled. Patient was admitted to this facility from 10/10 - 10/22 and when discharged earlier was apparently sent home with prescriptions and he states the pharmacy told him that they "could not one or two of them for a few days" so he decided to check back into the ER. Patient is a very poor historian and his grand daughter is at the bedside, but she is unable to provide anything helpful either. Apparently the patient's daughter is the person to talk to but she is not here currently so history is limited. TRAVEL OUTSIDE OF THE [place] IN LAST 30 DAYS: No - Related Data Allergies/Adverse Reactions: carvedilol Allergy (Verified 10/10/19 16:02) Penicillins Allergy (Verified 10/10/19 10:37) Past Medical History - General Information source: Patient, Relative - Social History Smoking Status: Never Smoker Family History: Reviewed & Not Pertinent Patient has suicidal ideation: No Patient has homicidal ideation: No - Past Medical History Cardiac Medical History: Reports: Hx Congestive Heart Failure, Hx Pulmonary Embolism Renal/ Medical History: Denies: Hx Peritoneal Dialysis Musculoskeletal Medical History: Denies Hx Arthritis Psychiatric Medical History: Reports: Hx Depression Past Surgical History: Reports: Hx Abdominal Surgery Review of Systems - Review of Systems Constitutional: No symptoms reported EENT: No symptoms reported Cardiovascular: See HPI, Chest pain - prior to arrival, none now, Dizziness, Lightheaded Respiratory: See HPI, Short of breath Gastrointestinal: No symptoms reported Genitourinary: No symptoms reported Male Genitourinary: No symptoms reported Musculoskeletal: No symptoms reported Skin: No symptoms reported Hematologic/Lymphatic: No symptoms reported Neurological/Psychological: No symptoms reported -: Yes All other systems reviewed and negative Physical Exam - Vital signs Vitals: Temp Pulse Resp BP Pulse Ox 97.4 F 80 20 97/79 L 99 10/22/19 21:53 10/22/19 21:53 10/22/19 21:53 10/22/19 21:53 10/22/19 21:53 - Notes Notes: Physical Exam: General: Alert, appears age appropriate. Poor historian. HEENT: Normocephalic. Atraumatic. PERRL. Extraocular movements intact. Oropharynx clear. Neck: Supple. Non-tender. Respiratory: No respiratory distress. Clear and equal breath sounds bilaterally. Cardiovascular: Wearing a life vest. Regular rate and rhythm. Abdominal: Normal Inspection. Non-tender. No distension. Normal Bowel Sounds. Back: No gross abnormalities. Extremities: Moves all four extremities. Upper extremities: Normal inspection. Normal ROM. Lower extremities: Normal inspection. No edema. Normal ROM. Neurological: Baseline dementia. Normal speech. Psychological: Normal affect. Normal Mood. Skin: Warm. Dry. Normal color. Course - Vital Signs Vital signs: Temp Pulse Resp BP Pulse Ox 97.4 F 82 19 113/87 H 94 10/22/19 21:53 10/23/19 01:40 10/23/19 02:01 10/23/19 02:01 10/23/19 02:01 - Laboratory Result Diagrams: 10/22/19 23:25 10/22/19 23:25 Laboratory results interpreted by me: 10/22/19 10/22/19 10/22/19 23:25 23:25 23:25 RDW 15.4 H Plt Count 98 L BUN 31 H Creatinine 1.33 H Est GFR (MDRD) Non-Af 52 L Total Bilirubin 1.7 H Direct Bilirubin 0.7 H AST 81 H Alkaline Phosphatase 178 H NT-Pro-B Natriuret Pep 51956 H Urine Protein Urine Blood Urine Urobilinogen 10/23/19 02:45 RDW Plt Count BUN Creatinine Est GFR (MDRD) Non-Af Total Bilirubin Direct Bilirubin AST Alkaline Phosphatase NT-Pro-B Natriuret Pep Urine Protein 100 H Urine Blood SMALL H Urine Urobilinogen 4.0 H - Consults dr. peña Time consulted: 04:03 - recommended giving pt ativan to see if it helps his symptoms Discharge - Discharge Clinical Impression: Weakness Condition: Good Disposition: HOME, SELF-CARE Additional Instructions: HOME CARE INSTRUCTIONS & INFORMATION: Thank you for choosing us for your medical needs. We hope you're satisfied with the care you received. After you leave, you must properly care for your problem and, at the same time, observe its progress. Any condition can change. Some illnesses can change rapidly over hours or days. If your condition worsens, return to the Emergency Department or see your physician promptly. ABOUT YOUR X-RAYS AND EKG'S: If you had an EKG or X-rays taken, they have been read by the Emergency Physician. The X-rays and EKG's will also be read by a Radiologist or Strapping Machine Operator within 24 hours. If discrepancies are noted, you will be notified by telephone. Please be certain the ED has a correct telephone number & address where you can be reached. Also, realize that some fractures or abnormalities do not show up on initial X-rays. If your symptoms continue, see your physician. ABOUT YOUR LABORATORY TEST: If you had laboratory tests, the results have been reviewed by the Emergency Physician. Some test results (for example cultures) may not be available for several days. You will be contacted if any test result shows you need additional treatment. Please be certain the ED has a correct telephone number and address where you can be reached. ABOUT YOUR MEDICATIONS: You will receive instructions on how to take your medicine on the prescription label you receive. Additional information may be provided by the Pharmacy. If you have questions afterwards, call the ED for clarification or further instructions. Some prescribed medications may cause drowsiness. Do not perform tasks such as driving a car or operating machinery without consulting your Pharmacist. If you feel you need a refill of pain medication, your condition will need re-evaluation. Please do not call for a refill of any medication. ABOUT YOUR SIGNATURE: Signature of this document acknowledges to followin. Understanding that you received emergency treatment and that you may be released before al medical problems are known or treated. Please be certain the ED has a correct phone number & address where you can be reached. 2. Acknowledgement that you will arrange for follow-up care as recommended. 3. Authorization for the Emergency Physician to provide information to your follow-up Physician in order to maximize your care. AT ANY TIME, IF YOUR SYMPTOMS CHANGE SIGNIFICANTLY OR WORSEN OR YOU DEVELOP NEW SYMPTOMS, RETURN TO THE EMERGENCY DEPARTMENT IMMEDIATELY FOR RE-EVALUATION. OUR GOAL IS TO PROVIDE EXCELLENT MEDICAL CARE! WE HOPE THAT WE HAVE MET YOUR EXPECTATIONS DURING YOUR EMERGENCY DEPARTMENT VISIT AND THAT YOU FEEL YOU HAVE RECEIVED EXCELLENT CARE! Return to the Emergency Department without delay if any worse.Weakness We did not find a definite cause for your weakness. This may require further medical tests. Weakness can be caused by infection, physical exhaustion, rapid weight loss, dehydration, or medicine side effects. Diseases of the muscles, heart, nerves, and blood vessels can make you weak. Sometimes the problem is simply depression or lack of exercise. You should get plenty of rest. Unless the doctor tells you otherwise, it's usually best to add short periods of regular mild exercise. Eat a nutritious diet with multiple small, low-sugar meals. If symptoms continue, additional medical evaluation will be necessary. Be sure to follow up as instructed. If you become very dizzy, nauseated, or feel like you're going to faint, lie down right away. Wait until the symptoms have passed before you get up again. Stand up slowly. Call the doctor or return if you develop chest pain, abdominal pain, severe headache, irregular heartbeat or very fast pulse, confusion, vision problems, fever, muscular pain, or any other new symptom. Referrals: KAVITHA JAIN MD [Primary Care Provider] - Follow up as needed I personally performed the services described in the documentation, reviewed and edited the documentation which was dictated to the scribe in my presence, and it accurately records my words and actions.
[2019-10-23] MEDS ORDERED: LORAZEPAM INJ 2 MG/1 ML VIAL IM ONE (04:13)
[2019-10-23] MEDS: LORAZEPAM INJ 2 MG/1 ML VIAL IV ONE ×2 (04:28→04:29)
--- NOTE | 2019-10-23 06:34 | EKG REPORT ---
SEVERITY:- ABNORMAL ECG - SINUS RHYTHM LEFT ATRIAL ABNORMALITY NONSPECIFIC INTRAVENTRICULAR CONDUCTION DELAY PROBABLE INFERIOR INFARCT, AGE INDETERMINATE LATERAL INFARCT, AGE INDETERMINATE CONSIDER ANTERIOR INFARCT : Confirmed by: Nikolay Davenport MD 23-Oct-2019 06:33:24
[2019-10-23 09:17] VITALS: BP 109/97
== END 2019-10-23 09:27 | disposition home or self-care (01) ==
LOC: ER 21:40
DX: R53.1 Weakness (principal); R06.02 Shortness of breath; R42 Dizziness and giddiness; F03.90 Unspecified dementia, unspecified severity, without behavioral disturbance, psychotic disturbance, mood disturbance, and anxiety; Z86.711 Personal history of pulmonary embolism; Z95.811 Presence of heart assist device; Z88.8 Allergy status to other drugs, medicaments and biological substances; Z88.0 Allergy status to penicillin
CPT/HCPCS: 93005; 99285; 96372; 36415; 85025; 80053; 81001; 84484; 83880; 71045; 93010; J2060

== ENCOUNTER 2019-10-25 14:47 | Inpatient (IN) | payer OTHER, MEDICARE ==
--- NOTE | 2019-10-25 16:03 | ER Document Report ---
ED Medical Screen (RME) - General Chief Complaint: Leg Swelling Stated Complaint: URINARY ISSUES Time Seen by Provider: 10/25/19 15:08 Primary Care Provider: KAVITHA JAIN MD [Primary Care Provider] - Follow up as needed Mode of Arrival: Wheelchair Information source: Patient Notes: 78-year-old male patient with history of CHF presents the emergency department chief complaint of abdominal swelling and bilateral leg swelling. Patient reports mild shortness of breath, denies chest pain. Lung sounds clear and equal bilaterally. 3+ pitting edema noted to bilateral lower extremities. I have greeted and performed a rapid initial assessment of this patient. A comprehensive ED assessment and evaluation of the patient, analysis of test results and completion of the medical decision making process will be conducted by additional ED providers. I have specifically instructed the patient or family members with the patient to immediately return to any nursing staff should anything change in the patient's condition or with their chief complaint. TRAVEL OUTSIDE OF THE [place] IN LAST 30 DAYS: No - Related Data Allergies/Adverse Reactions: carvedilol Allergy (Verified 10/25/19 15:01) Penicillins Allergy (Verified 10/25/19 15:01) Past Medical History - Social History Chew tobacco use (# tins/day): No Frequency of alcohol use: None Drug Abuse: None - Past Medical History Cardiac Medical History: Reports: Hx Congestive Heart Failure, Hx Pulmonary Embolism Renal/ Medical History: Denies: Hx Peritoneal Dialysis Musculoskeltal Medical History: Denies Hx Arthritis Psychiatric Medical History: Reports: Hx Depression Past Surgical History: Reports: Hx Abdominal Surgery Physical Exam - Vital signs Vitals: Temp Pulse Resp BP Pulse Ox 97.3 F 71 32 H 99/70 L 100 10/25/19 14:58 10/25/19 14:58 10/25/19 14:58 10/25/19 14:58 10/25/19 14:58 Course - Vital Signs Vital signs: Temp Pulse Resp BP Pulse Ox 97.3 F 71 32 H 99/70 L 100 10/25/19 14:58 10/25/19 14:58 10/25/19 14:58 10/25/19 14:58 10/25/19 14:58 Doctor's Discharge - Discharge Referrals: KAVITHA JAIN MD [Primary Care Provider] - Follow up as needed
--- NOTE | 2019-10-25 16:31 | RADIOLOGY REPORT (SQ) ---
EXAM DESCRIPTION: CHEST 2 VIEWS COMPLETED DATE/TIME: 10/25/2019 4:09 pm REASON FOR STUDY: eval for CHF COMPARISON: 10/22/2019 EXAM PARAMETERS: NUMBER OF VIEWS: two views TECHNIQUE: Digital Frontal and Lateral radiographic views of the chest acquired. RADIATION DOSE: NA LIMITATIONS: none FINDINGS: LUNGS AND PLEURA: Small bilateral pleural effusions and bibasilar consolidation, likely at electasis. Additional interstitial prominence bilaterally, similar to prior. No overt alveolar frantz a. No pneumothorax. MEDIASTINUM AND HILAR STRUCTURES: No masses or contour abnormalities. HEART AND VASCULAR STRUCTURES: Enlarged cardiac silhouette. Aortic atherosclerosis. BONES: No acute findings. HARDWARE: External defibrillator leads overlie chest. OTHER: No other significant finding. IMPRESSION: Stable enlarged cardiac silhouette with small bilateral pleural effusions and interstiti al prominence, likely edema. No overt alveolar edema. TECHNICAL DOCUMENTATION: JOB ID: [id number] [employer]- All Rights Reserved Reading location - IP/workstation name: [email or web address]
[2019-10-25 17:05] LABS: ABSOLUTE LYMPHOCYTES (AUTO) 1.3 10^3/uL (0.5-4.7); ABSOLUTE MONOCYTES (AUTO) 0.8 10^3/uL (0.1-1.4); ABSOLUTE NEUT (AUTO) 6.1 10^3/uL (1.7-8.2); BASOPHILS % (AUTO) 0.5 % (0-2); EOSINOPHILS % (AUTO) 0.2 % (0-6); HEMATOCRIT 49.4 % (37.9-51.0); HEMOGLOBIN 16.3 g/dL (13.5-17.0); MEAN CORPUSCULAR HEMOGLOBIN 29.5 pg (27.0-33.4); MEAN CORPUSCULAR VOLUME 89 fl (80-97); RED BLOOD COUNT 5.53 10^6/uL (4.35-5.55); SEGMENTED NEUTROPHILS % (AUTO) 73.3 % (42-78); TOTAL CELLS COUNTED % (AUTO) 100 %; WHITE BLOOD COUNT 8.3 10^3/uL (4.0-10.5)
[2019-10-25 17:26] LABS: PLATELET COUNT 107 10^3/uL (150-450)
[2019-10-25 18:02] LABS: ALKALINE PHOSPHATASE 183 U/L (38-126); ANION GAP 13 (5-19); ASPARTATE AMINO TRANSFERASE 329 U/L (17-59); BILIRUBIN,TOTAL 2.3 mg/dL (0.2-1.3); BLOOD UREA NITROGEN 44 mg/dL (7-20); CALCIUM 9.4 mg/dL (8.4-10.2); CARBON DIOXIDE 26 mmol/L (22-30); CHLORIDE 100 mmol/L (98-107); GLUCOSE 107 mg/dL (75-110); POTASSIUM 4.7 mmol/L (3.6-5.0); TOTAL PROTEIN 6.5 g/dL (6.3-8.2)
[2019-10-25 18:20] LABS: TROPONIN I 0.179 ng/mL
[2019-10-25] MEDS ORDERED: BUMETANIDE INJ/PF 1 MG/4 ML SDV IV STA (20:50)
--- NOTE | 2019-10-25 20:59 | ER Document Report ---
ED General - General Chief Complaint: Leg Swelling Stated Complaint: URINARY ISSUES Time Seen by Provider: 10/25/19 15:08 Primary Care Provider: KAVITHA JAIN MD [Primary Care Provider] - Follow up as needed Mode of Arrival: Wheelchair TRAVEL OUTSIDE OF THE [place] IN LAST 30 DAYS: No - HPI Onset: Just prior to arrival Onset/Duration: Gradual Severity: Moderate Context: 78 year old with increasing abd girth, le swelling and 5 + kg weight gain is last several days. Known h/o chf, cardiomyopathy, elevated troponin and renal insuf. He denies chest pain but is short of breath with very little activity. No fever or chills. Noted increasing abd girth and le edema which is worse sinc e he left here a week. - Related Data Allergies/Adverse Reactions: carvedilol Allergy (Verified 10/25/19 15:01) Penicillins Allergy (Verified 10/25/19 15:01) Past Medical History - General Information source: Patient - Social History Smoking Status: Never Smoker Chew tobacco use (# tins/day): No Frequency of alcohol use: None Drug Abuse: None Family History: Reviewed & Not Pertinent Patient has suicidal ideation: No Patient has homicidal ideation: No - Past Medical History Cardiac Medical History: Reports: Hx Congestive Heart Failure, Hx Pulmonary Embolism Renal/ Medical History: Denies: Hx Peritoneal Dialysis Musculoskeletal Medical History: Denies Hx Arthritis Psychiatric Medical History: Reports: Hx Depression Past Surgical History: Reports: Hx Abdominal Surgery Review of Systems - Review of Systems Constitutional: No symptoms reported EENT: No symptoms reported Cardiovascular: No symptoms reported Respiratory: No symptoms reported Gastrointestinal: No symptoms reported Genitourinary: No symptoms reported Male Genitourinary: No symptoms reported Musculoskeletal: No symptoms reported Skin: No symptoms reported Hematologic/Lymphatic: No symptoms reported Neurological/Psychological: No symptoms reported Physical Exam - Vital signs Vitals: Temp Pulse Resp BP Pulse Ox 97.3 F 71 32 H 99/70 L 100 10/25/19 14:58 10/25/19 14:58 10/25/19 14:58 10/25/19 14:58 10/25/19 14:58 Interpretation: Normal - General General appearance: Appears well, Alert - HEENT Head: Normocephalic, Atraumatic Eyes: Normal Pupils: PERRL - Respiratory Respiratory status: No respiratory distress Chest status: Nontender Breath sounds: Normal Chest palpation: Normal - Cardiovascular Rhythm: Regular Heart sounds: Normal auscultation Murmur: No - Abdominal Inspection: Normal Distension: No distension Bowel sounds: Normal Tenderness: Nontender Organomegaly: No organomegaly - Back Back: Normal, Nontender - Extremities General upper extremity: Normal inspection, Nontender, Normal color, Normal ROM, Normal temperature General lower extremity: Normal inspection, Nontender, Normal color, Normal ROM, Normal temperature, Normal weight bearing. No: Santos's sign - Neurological Neuro grossly intact: Yes Cognition: Normal Orientation: AAOx4 [place] Coma Scale Eye Opening: Spontaneous [place] Coma Scale Verbal: Oriented Jahaira Coma Scale Motor: Obeys Commands [place] Coma Scale Total: 15 Speech: Normal Motor strength normal: LUE, RUE, LLE, RLE Sensory: Normal - Psychological Associated symptoms: Normal affect, Normal mood - Skin Skin Temperature: Warm Skin Moisture: Dry Skin Color: Normal Course - Re-evaluation Re-evalutation: 10/25/19 21:01 [facility] Call placed to [place] and awating call back. - Vital Signs Vital signs: Temp Pulse Resp BP Pulse Ox 97.3 F 71 32 H 99/70 L 100 10/25/19 14:58 10/25/19 14:58 10/25/19 14:58 10/25/19 14:58 10/25/19 14:58 - Laboratory Result Diagrams: 10/25/19 16:25 10/25/19 16:25 Laboratory results interpreted by me: 10/25/19 10/25/19 10/25/19 16:25 16:25 16:25 RDW 16.0 H Plt Count 107 L BUN 44 H Creatinine 1.31 H Est GFR (MDRD) Non-Af 53 L Total Bilirubin 2.3 H Direct Bilirubin 1.0 H AST 329 H Alkaline Phosphatase 183 H NT-Pro-B Natriuret Pep 12229 H - Diagnostic Test Radiology reviewed: Reports reviewed - EKG Interpretation by Me EKG shows normal: Sinus rhythm Rate: Normal Rhythm: NSR When compared to previous EKG there are: No significant change - 67 BPM Ant q waves No st elevation or depression my interpretation. Critical Care Note - Critical Care Note Total time excluding time spent on procedures (mins): 30 Discharge - Discharge Clinical Impression: Acute systolic congestive heart failure, NYHA class 2 Condition: Fair Disposition: ADMITTED INPATIENT Admitting Provider: Santy (Hospitalist) Unit Admitted: IMCU Referrals: KAVITHA JAIN MD [Primary Care Provider] - Follow up as needed
[2019-10-25] MEDS ORDERED: CLONAZEPAM 1 MG TABLET PO PRN (21:16)
[2019-10-25] MEDS ORDERED: ACETAMINOPHEN 325 MG TABLET PO PRN (21:18)
[2019-10-25] MEDS ORDERED: MAGNESIUM HYDROXIDE SUSP 30 ML UDCUP PO PRN (21:18)
[2019-10-25] MEDS ORDERED: MAG HYDROX/AL HYDROX/SIMETH SUSP 30 ML UDCUP PO PRN (21:18)
[2019-10-25] MEDS: ATORVASTATIN CALCIUM 20 MG TABLET PO SCH (22:27)
[2019-10-25] MEDS: POTASSIUM CHLORIDE 10 MEQ TABLET.ER PO SCH (22:28)
[2019-10-25] MEDS: HEPARIN SOD (PORCINE) 5,000 UNIT/ML 1 ML VIAL SUBCUT SCH (22:33)
[2019-10-26] MEDS ORDERED: TRAZODONE HCL 50 MG TABLET PO PRN (00:02)
--- NOTE | 2019-10-26 05:04 | PDOC H&P ---
History of Present Illness Admission Date/PCP: 10/25/19 21:22 KAVITHA JAIN MD Patient complains of: Edema History of Present Illness: JARROD PAYNE is a 78 year old male with a past medical history of chronic thrombocytopenia, coronary artery disease, dyslipidemia, end-stage heart failure with LifeVest and hypotension. He was discharged 5 days ago but has had progressively increased edema and a weight gain of 5 kg in 5 days. Patient denies chest pain nausea vomiting or or missing medications. He admits to dietary indiscretion secondary to excessive thirst. In the emergency department he is found to have hypotension, acute renal failure and elevated LFTs suggestive of alcohol abuse. He admits to uncontrolled depression though denies homicidal or suicidal ideation. Past Medical History Cardiac Medical History: Reports: Congestive Heart Failure, Pulmonary Embolism Musculoskeltal Medical History: Denies: Arthritis Psychiatric Medical History: Reports: Depression Past Surgical History Past Surgical History: Reports: None Social History Information Source: Patient, [facility] Records Lives with: Alone Smoking Status: Never Smoker Electronic Cigarette use?: No Frequency of Alcohol Use: Occasional Hx Recreational Drug Use: No Drugs: None Hx Prescription Drug Abuse: No - Advance Directive Resuscitation Status: Full Code Family History Family History: Hypertension Parental Family History Reviewed: Yes Children Family History Reviewed: Yes Sibling(s) Family History Reviewed.: Yes Medication/Allergy Home Medications: Aspirin [Ecotrin 81 mg EC Tablet] 81 mg PO DAILY 30 Days #30 tabec 03/23/19 Atorvastatin Calcium [Lipitor 20 mg Tablet] 20 mg PO QHS #30 tablet 10/20/19 Clonazepam [Klonopin 1 mg Tablet] 0.25 mg PO Q8H PRN #9 tablet 10/20/19 Furosemide [Lasix 20 mg Tablet] 20 mg PO BID #60 tablet 10/20/19 Losartan Potassium [Cozaar 25 mg Tablet] 25 mg PO Q12A #30 tablet 10/20/19 Metoprolol Succinate [Toprol Xl 25 mg Tab.sr] 25 mg PO DAILY #30 tab.sr.24h 10/20/19 Pantoprazole Sodium [Protonix [address] Tablet] 40 mg PO DAILY #30 tablet.dr 10/20/19 Tiotropium Leslie [Spiriva Respimat] 4 gm IH DAILY #1 mist.inhal 10/20/19 Midodrine HCl 10 mg PO TID #90 tablet 10/22/19 Allergies/Adverse Reactions: carvedilol Allergy (Verified 10/25/19 15:01) Penicillins Allergy (Verified 10/25/19 15:01) Review of Systems Constitutional: PRESENT: as per HPI, weakness, weight gain. ABSENT: fever(s), headache(s), night sweats Eyes: ABSENT: visual disturbances Ears: ABSENT: hearing changes Cardiovascular: PRESENT: as per HPI, dyspnea on exertion, edema, orthropnea. ABSENT: chest pain, palpitations Respiratory: PRESENT: as per HPI, dyspnea. ABSENT: cough, sputum Gastrointestinal: ABSENT: abdominal pain, constipation, diarrhea, hematemesis, hematochezia, nausea, vomiting Genitourinary: ABSENT: dysuria, hematuria Musculoskeletal: ABSENT: joint swelling Integumentary: ABSENT: rash, wounds Neurological: ABSENT: abnormal gait, abnormal speech, confusion, dizziness, focal weakness, syncope Psychiatric: PRESENT: as per HPI, anxiety, depression. ABSENT: hallucinations, homidical ideation, suicidal ideation Endocrine: ABSENT: cold intolerance, heat intolerance, polydipsia, polyuria Hematologic/Lymphatic: ABSENT: easy bleeding, easy bruising Physical Exam Vital Signs: Temp Pulse Resp BP Pulse Ox 98.5 F 76 16 102/77 97 10/26/19 03:31 10/26/19 03:31 10/26/19 03:31 10/26/19 03:31 10/26/19 03:31 Intake & Output 10/24/19 10/25/19 10/26/19 11:59 11:59 11:59 Weight 83 kg General appearance: PRESENT: cooperative, mild distress, well-developed, well- nourished. ABSENT: disheveled Head exam: PRESENT: atraumatic, normocephalic Eye exam: PRESENT: conjunctiva pink, EOMI, PERRLA. ABSENT: scleral icterus Ear exam: PRESENT: normal external ear exam Mouth exam: PRESENT: moist, tongue midline Neck exam: ABSENT: carotid bruit, JVD, lymphadenopathy, thyromegaly Respiratory exam: PRESENT: accessory muscle use, prolonged expiratory phas, retraction, symmetrical, tachypnea. ABSENT: rhonchi Cardiovascular exam: PRESENT: RRR, tachycardia. ABSENT: diastolic murmur, rubs, systolic murmur Pulses: PRESENT: normal dorsalis pedis pul Vascular exam: PRESENT: normal capillary refill GI/Abdominal exam: PRESENT: normal bowel sounds, soft. ABSENT: distended, guarding, mass, organolmegaly, rebound, tenderness Rectal exam: PRESENT: deferred Extremities exam: PRESENT: full ROM, +2 edema. ABSENT: calf tenderness, clubbing, pedal edema Neurological exam: PRESENT: alert, awake, oriented to person, oriented to place, oriented to time, oriented to situation, CN II-XII grossly intact. ABSENT: motor sensory deficit Psychiatric exam: PRESENT: anxious, depressed. ABSENT: flat affect, homicidal ideation Skin exam: PRESENT: dry, intact, warm. ABSENT: cyanosis, rash Results Laboratory Results: 10/25/19 16:25 10/25/19 16:25 10/25/19 10/25/19 16:25 16:25 WBC 8.3 RBC 5.53 Hgb 16.3 Hct 49.4 MCV 89 MCH 29.5 MCHC 33.0 RDW 16.0 H Plt Count 107 L Seg Neutrophils % 73.3 Sodium 138.8 Potassium 4.7 Chloride 100 Carbon Dioxide 26 Anion Gap 13 BUN 44 H Creatinine 1.31 H Est GFR ( Amer) > 60 Glucose 107 Calcium 9.4 Total Bilirubin 2.3 H AST 329 H Alkaline Phosphatase 183 H Total Protein 6.5 Albumin 4.0 10/25/19 10/25/19 16:25 21:54 Troponin I 0.179 0.226 NT-Pro-B Natriuret Pep 52641 H Impressions: Chest X-Ray 10/25/19 15:59 IMPRESSION: Stable enlarged cardiac silhouette with small bilateral pleural effusions and interstitial prominence, likely edema. No overt alveolar edema. Assessment and Plan - Diagnosis (1) LFT elevation Is this a current diagnosis for this admission?: Yes Plan: Previous admission of alcohol now denies, constellation of elevated AST, thrombocytopenia is suggestive, follow-up repeat LFTs (2) Acute congestive heart failure Qualifiers: Heart failure type: unspecified Qualified Code(s): I50.9 - Heart failure, unspecified Is this a current diagnosis for this admission?: Yes Plan: Trial diuresis, fluid restriction and follow-up cardiac enzymes (3) Depression Is this a current diagnosis for this admission?: Yes Plan: Benzodiazepine as needed (5) Hypotension Qualifiers: Hypotension type: other hypotension type Qualified Code(s): I95.89 - Other hypotension Is this a current diagnosis for this admission?: Yes Plan: Hold beta-deandra, gentle diuresis (6) Acute renal failure Is this a current diagnosis for this admission?: Yes Plan: Likely secondary to excessive antihypertensive meds though possible further reduction in EF. Avoid nephrotoxic meds and doses follow-up chemistry - Time Time Spent with patient: 25-34 minutes - Inpatient Certification Medical Necessity: Need Close Monitoring Due to Risk of Patient Decompensation
[2019-10-26 05:35] LABS: ANION GAP 13 (5-19); BLOOD UREA NITROGEN 39 mg/dL (7-20); CALCIUM 8.8 mg/dL (8.4-10.2); CARBON DIOXIDE 22 mmol/L (22-30); CHLORIDE 104 mmol/L (98-107); GLUCOSE 106 mg/dL (75-110)
[2019-10-26] MEDS: HEPARIN SOD (PORCINE) 5,000 UNIT/ML 1 ML VIAL SUBCUT SCH ×3 (05:42→21:43)
[2019-10-26 05:43] LABS: ALBUMIN 3.2 g/dL (3.5-5.0); ALKALINE PHOSPHATASE 156 U/L (38-126); ASPARTATE AMINO TRANSFERASE 251 U/L (17-59); BILIRUBIN,DIRECT 1.2 mg/dL (0.0-0.4); BILIRUBIN,TOTAL 2.1 mg/dL (0.2-1.3); POTASSIUM 3.6 mmol/L (3.6-5.0)
--- NOTE | 2019-10-26 09:20 | EKG REPORT ---
SEVERITY:- ABNORMAL ECG - SINUS RHYTHM LEFT ATRIAL ABNORMALITY NONSPECIFIC INTRAVENTRICULAR CONDUCTION DELAY ANTEROLATERAL INFARCT, AGE INDETERMINATE : Confirmed by: Keyla Batres 26-Oct-2019 09:19:14
[2019-10-26] MEDS ORDERED: FUROSEMIDE INJ/PF 40 MG/4 ML SDV IV SCH (10:00)
[2019-10-26] MEDS ORDERED: (PENDING PHARMACY ID) (Tiotropium Bromide [Spiriva Respimat] 4 GM) IH SCH (10:00)
[2019-10-26] MEDS: METOPROLOL SUCCINATE 25 MG TAB.SR.24H PO SCH (10:11)
[2019-10-26] MEDS: POTASSIUM CHLORIDE 10 MEQ TABLET.ER PO SCH ×2 (10:11→21:40)
[2019-10-26] MEDS: ASPIRIN 81 MG TABLET, ENT COATED PO SCH (10:12)
[2019-10-26] MEDS: UMECLIDINIUM BROMIDE 62.5 MCG/DOSE IH SCH (10:16)
--- NOTE | 2019-10-26 15:09 | PDOC PROGRESS REPORT ---
Subjective Progress Note for:: 10/26/19 Subjective:: JARROD PAYNE is a 78 year old male with a past medical history of chronic thrombocytopenia, coronary artery disease, dyslipidemia, end-stage heart failure with LifeVest and hypotension who was admitted for acute CHF exacerbation, elevated LFTs, and hypotension. The patient was seen on morning rounds with his daughter present. He was found resting in bed, comfortably, on room air. He was ANO x4; conversational, spoke in complete sentences not noted to be in any acute distress. He reports that he is feeling better already today with decreased abdominal distention and bilateral leg edema. He reports medication compliance, but does admit that he does not follow strict dietary and fluid intake guidelines. He does not weigh himself daily. He is adamant that he no longer drinks alcohol but does admit that he had periods of heavy drinking in the remote past. He further denies fever, chills, chest pain, palpitations, dyspnea, cough, abdominal pain, nausea vomiting and diarrhea. Have no other questions or concerns at this time. No concerns per nursing. Reason For Visit: HEART FAILURE Physical Exam Vital Signs: Temp Pulse Resp BP Pulse Ox 97.3 F 80 18 106/82 100 10/26/19 11:43 10/26/19 14:00 10/26/19 11:43 10/26/19 11:43 10/26/19 11:43 Intake & Output 10/25/19 10/26/19 10/27/19 06:59 06:59 06:59 Intake Total 100 Output Total 250 Balance -150 Weight 83 kg General appearance: PRESENT: no acute distress, cooperative - Pleasant, well- developed, well-nourished Head exam: PRESENT: atraumatic, normocephalic Eye exam: PRESENT: conjunctiva pink, EOMI, PERRLA. ABSENT: scleral icterus Ear exam: PRESENT: normal external ear exam Mouth exam: PRESENT: moist, tongue midline Neck exam: ABSENT: carotid bruit, JVD, lymphadenopathy, thyromegaly Respiratory exam: PRESENT: clear to auscultation joslyn, symmetrical, unlabored. ABSENT: rales, rhonchi, wheezes Cardiovascular exam: PRESENT: RRR, +S1, +S2, other - Currently wearing LifeVest. ABSENT: diastolic murmur, rubs, systolic murmur Pulses: PRESENT: normal dorsalis pedis pul Vascular exam: PRESENT: normal capillary refill GI/Abdominal exam: PRESENT: ascites, distended, normal bowel sounds, soft. ABSENT: guarding, mass, organolmegaly, rebound, tenderness Rectal exam: PRESENT: deferred Extremities exam: PRESENT: full ROM, other - +3 pitting edema bilateral lower extremity. ABSENT: calf tenderness, clubbing, pedal edema Musculoskeletal exam: PRESENT: ambulatory Neurological exam: PRESENT: alert, awake, oriented to person, oriented to place, oriented to time, oriented to situation, CN II-XII grossly intact. ABSENT: motor sensory deficit Psychiatric exam: PRESENT: appropriate affect, normal mood. ABSENT: homicidal ideation, suicidal ideation Skin exam: PRESENT: dry, intact, warm. ABSENT: cyanosis, rash Results Laboratory Results: 10/25/19 16:25 10/26/19 04:04 10/25/19 10/25/19 10/26/19 16:25 16:25 04:04 WBC 8.3 RBC 5.53 Hgb 16.3 Hct 49.4 MCV 89 MCH 29.5 MCHC 33.0 RDW 16.0 H Plt Count 107 L Seg Neutrophils % 73.3 Sodium 138.8 138.5 Potassium 4.7 3.6 D Chloride 100 104 Carbon Dioxide 26 22 Anion Gap 13 13 BUN 44 H 39 H Creatinine 1.31 H 1.06 Est GFR ( Amer) > 60 > 60 Glucose 107 106 Calcium 9.4 8.8 Total Bilirubin 2.3 H AST 329 H Alkaline Phosphatase 183 H Total Protein 6.5 Albumin 4.0 10/26/19 04:04 WBC RBC Hgb Hct MCV MCH MCHC RDW Plt Count Seg Neutrophils % Sodium Potassium Chloride Carbon Dioxide Anion Gap BUN Creatinine Est GFR ( Amer) Glucose Calcium Total Bilirubin 2.1 H AST 251 H Alkaline Phosphatase 156 H Total Protein 6.0 L Albumin 3.2 L 10/25/19 10/25/19 10/26/19 16:25 21:54 04:04 Troponin I 0.179 0.226 0.263 NT-Pro-B Natriuret Pep 71977 H 10/26/19 11:13 Troponin I 0.448 NT-Pro-B Natriuret Pep Impressions: Chest X-Ray 10/25/19 15:59 IMPRESSION: Stable enlarged cardiac silhouette with small bilateral pleural effusions and interstitial prominence, likely edema. No overt alveolar edema. Assessment and Plan - Diagnosis (1) Acute systolic congestive heart failure, NYHA class 2 Is this a current diagnosis for this admission?: Yes Plan: The patient is admitted to [facility] on continuous cardiac telemetry. His home dose metoprolol is continued. Consider start of FORD or ARB; will discuss Entresto with his established c ardiologist, Dr. Yee, prior to initiating. Daily aspirin and statin therapy are continued We will continue to diurese with IV furosemide Cardiac diet Daily weights and strict I's and O's. (2) LFT elevation Is this a current diagnosis for this admission?: Yes Plan: T bili 2.1, AST 251, ALT 186, alk phos 156, albumin 3.2 Patient does have abdominal distention with possible ascites on exam. He does have a remote history of heavy alcohol use. LFTs possibly elevated secondary to hypotension and acute CHF exacerbation, however, will investigate primary liver dysfunction with right upper quadrant ultrasound. Hepatitis panel Follow-up LFTs in the morning. (3) Depression Is this a current diagnosis for this admission?: Yes Plan: Benzodiazepine as needed (4) Elevated troponin Is this a current diagnosis for this admission?: Yes Plan: Troponin 0.179-> 0.226-> 0.263-> 0.448 Likely mismatch demand ischemia due to acute CHF exacerbation with fluid volume overload Patient denies chest pain/palpitations. Continues to wear LifeVest Will monitor on continuous telemetry. Will continue to trend troponins Optimize cardiac output. Daily ASA and statin. (5) Hypotension Qualifiers: Hypotension type: other hypotension type Qualified Code(s): I95.89 - Other hypotension Is this a current diagnosis for this admission?: Yes Plan: Improved. Optimize cardiac output. Fall precautions. - Time Time Spent with patient: 35 or more minutes Medications reviewed and adjusted accordingly: Yes Anticipated discharge: Home Within: within 48 hours
[2019-10-26] MEDS: FUROSEMIDE INJ/PF 40 MG/4 ML SDV IV SCH (18:29)
--- NOTE | 2019-10-26 18:42 | RADIOLOGY REPORT (SQ) ---
EXAM DESCRIPTION: U/S ABDOMEN LIMITED W/O DOP COMPLETED DATE/TIME: 10/26/2019 6:18 pm REASON FOR STUDY: abdominal distention, elevated LFTs COMPARISON: None. TECHNIQUE: Dynamic and static grayscale images acquired of the abdomen and recorded on PACS. Cheyanneo alexandre selected color Doppler and spectral images recorded. LIMITATIONS: None. FINDINGS: PANCREAS: No masses. Visualized pancreatic duct normal caliber. LIVER: No masses. Echotexture normal. LIVER VASCULATURE: Normal directional flow of the main portal vein and hepatic veins. GALLBLADDER: No stones. Normal wall thickness. No pericholecystic fluid. ULTRASOUND-DETECTED CUNNINGHAM'S SIGN: Negative. INTRAHEPATIC DUCTS AND COMMON DUCT: CBD and intrahepatic ducts normal caliber. No filling defects. INFERIOR VENA CAVA: Normal flow. AORTA: Infrarenal abdominal aortic aneurysm, 4.4 cm. RIGHT KIDNEY: Normal size. Normal echogenicity. No solid or suspicious masses. No hydronephrosis. No calcifications. PERITONEAL AND RIGHT PLEURAL SPACE: No ascites or effusions. OTHER: No other significant findings. IMPRESSION: 1. 4.4 cm infrarenal abdominal aortic aneurysm. AAA Size: Follow-up Recommendation 4.0-4.4 cm Every 12 months, vascular consultation recommended *Based upon the Society for Vascular Surgery Guidelines: J Vasc Surg. 2009 Jun;50(4 Suppl):S2-49 *For aortas of maximum diameter of 2.6-2.9 cm meeting the criteria for AAA (?1.5 x proximal normal se gment) TECHNICAL DOCUMENTATION: JOB ID: [id number] [employer]- All Rights Reserved Reading location - IP/workstation name: [email or web address]
[2019-10-26] MEDS: ATORVASTATIN CALCIUM 20 MG TABLET PO SCH (21:40)
[2019-10-27 05:28] LABS: ALBUMIN 3.3 g/dL (3.5-5.0); ALKALINE PHOSPHATASE 161 U/L (38-126); ANION GAP 10 (5-19); ASPARTATE AMINO TRANSFERASE 215 U/L (17-59); BLOOD UREA NITROGEN 35 mg/dL (7-20); CALCIUM 9.1 mg/dL (8.4-10.2); CARBON DIOXIDE 27 mmol/L (22-30); CHLORIDE 104 mmol/L (98-107); GLUCOSE 116 mg/dL (75-110); POTASSIUM 4.1 mmol/L (3.6-5.0); TOTAL PROTEIN 6.1 g/dL (6.3-8.2)
[2019-10-27] MEDS: LOSARTAN POTASSIUM 25 MG TABLET PO SCH ×2 (05:30→17:29)
[2019-10-27] MEDS: HEPARIN SOD (PORCINE) 5,000 UNIT/ML 1 ML VIAL SUBCUT SCH ×3 (05:31→22:00)
[2019-10-27] MEDS: METOPROLOL SUCCINATE 25 MG TAB.SR.24H PO SCH (10:05)
[2019-10-27] MEDS: POTASSIUM CHLORIDE 10 MEQ TABLET.ER PO SCH ×2 (10:05→22:05)
[2019-10-27] MEDS: MIDODRINE HCL 5 MG TABLET PO SCH ×3 (10:05→17:29)
[2019-10-27] MEDS: PANTOPRAZOLE SODIUM 40 MG TABLET.DR PO SCH (10:05)
[2019-10-27] MEDS: ASPIRIN 81 MG TABLET, ENT COATED PO SCH (10:05)
[2019-10-27] MEDS: UMECLIDINIUM BROMIDE 62.5 MCG/DOSE IH SCH (10:06)
[2019-10-27] MEDS: FUROSEMIDE INJ/PF 40 MG/4 ML SDV IV SCH ×2 (10:06→17:29)
--- NOTE | 2019-10-27 14:14 | PDOC PROGRESS REPORT ---
Subjective Progress Note for:: 10/27/19 Subjective:: JARROD PAYNE is a 78 year old male with a past medical history of chronic thrombocytopenia, coronary artery disease, dyslipidemia, end-stage heart failure with LifeVest and hypotension who was admitted for acute CHF exacerbation, elevated LFTs, and hypotension. The patient was seen on morning rounds. He was found resting in bed, comfortably, on room air. He is A&O x4; conversational, spoke in complete sentences not noted to be in any acute distress. He reports that he is feeling better today with decreased abdominal distention, bilateral leg edema, and s hortness of breath at rest. He does continue to have dyspnea with minimal exertion. His primary concern today is his fluid restriction. He further denies fever, chills, chest pain, palpitations, dyspnea, cough, abdominal pain, nausea vomiting and diarrhea. He has no other questions or concerns at this time. No concerns per nursing. Reason For Visit: HEART FAILURE Physical Exam Vital Signs: Temp Pulse Resp BP Pulse Ox 97.5 F 84 18 117/81 99 10/27/19 07:58 10/27/19 07:58 10/27/19 07:58 10/27/19 07:58 10/27/19 07:58 Intake & Output 10/26/19 10/27/19 10/28/19 06:59 06:59 06:59 Intake Total 100 1337 950 Output Total 250 950 300 Balance -150 387 650 Weight 83 kg 85.1 kg General appearance: PRESENT: no acute distress, cooperative, well-developed, well-nourished Head exam: PRESENT: atraumatic, normocephalic Eye exam: PRESENT: conjunctiva pink, EOMI, PERRLA. ABSENT: scleral icterus Ear exam: PRESENT: normal external ear exam Mouth exam: PRESENT: moist, tongue midline Respiratory exam: PRESENT: clear to auscultation joslyn, symmetrical, unlabored. ABSENT: rales, rhonchi, wheezes Cardiovascular exam: PRESENT: RRR, +S1, +S2. ABSENT: diastolic murmur, rubs, systolic murmur Pulses: PRESENT: normal dorsalis pedis pul Vascular exam: PRESENT: normal capillary refill GI/Abdominal exam: PRESENT: distended, normal bowel sounds, soft. ABSENT: guarding, mass, organolmegaly, rebound, tenderness Rectal exam: PRESENT: deferred Extremities exam: PRESENT: full ROM, pedal edema - BLE. ABSENT: calf tenderness, clubbing Neurological exam: PRESENT: alert, awake, oriented to person, oriented to place, oriented to time, oriented to situation, CN II-XII grossly intact. ABSENT: motor sensory deficit Psychiatric exam: PRESENT: appropriate affect, normal mood. ABSENT: homicidal ideation, suicidal ideation Skin exam: PRESENT: dry, intact, mottled - Dusky and mottled appearance to bilateral feet, warm. ABSENT: cyanosis, rash Results Laboratory Results: 10/25/19 16:25 10/27/19 04:23 10/27/19 04:23 Sodium 140.7 Potassium 4.1 Chloride 104 Carbon Dioxide 27 Anion Gap 10 BUN 35 H Creatinine 0.98 Est GFR ( Amer) > 60 Glucose 116 H Calcium 9.1 Total Bilirubin 2.0 H AST 215 H Alkaline Phosphatase 161 H Total Protein 6.1 L Albumin 3.3 L 10/25/19 10/25/19 10/26/19 16:25 21:54 04:04 Troponin I 0.179 0.226 0.263 NT-Pro-B Natriuret Pep 75882 H 10/26/19 10/26/19 10/26/19 11:13 15:39 21:26 Troponin I 0.448 0.674 0.559 NT-Pro-B Natriuret Pep Impressions: Chest X-Ray 10/25/19 15:59 IMPRESSION: Stable enlarged cardiac silhouette with small bilateral pleural effusions and interstitial prominence, likely edema. No overt alveolar edema. Abdomen Ultrasound 10/26/19 00:00 IMPRESSION: 1. 4.4 cm infrarenal abdominal aortic aneurysm. AAA Size: Follow-up Recommendation 4.0-4.4 cm Every 12 months, vascular consultation recommended *Based upon the Society for Vascular Surgery Guidelines: J Vasc Surg. 2009 Jun;50(4 Suppl):S2-49 *For aortas of maximum diameter of 2.6-2.9 cm meeting the criteria for AAA (?1.5 x proximal normal segment) Assessment and Plan - Diagnosis (1) Acute systolic congestive heart failure, NYHA class 2 Is this a current diagnosis for this admission?: Yes Plan: The patient is admitted to [facility] on continuous cardiac telemetry. His home dose metoprolol and losartan are continued. Daily aspirin and statin therapy are continued We will continue to diurese with IV furosemide Cardiac diet Daily weights and strict I&O's. Dr. Coronado is consulted; appreciate his evaluation recommendations (2) LFT elevation Is this a current diagnosis for this admission?: Yes Plan: Likely secondary to acute on chronic CHF Patient does have abdominal distention with possible ascites on exam. He does have a remote history of heavy alcohol use. Right upper quadrant ultrasound is benign. Hepatitis panel pending Follow-up LFTs are slightly improved. (3) Depression Is this a current diagnosis for this admission?: Yes Plan: Benzodiazepine as needed (4) Elevated troponin Is this a current diagnosis for this admission?: Yes Plan: Troponin 0.179-> 0.226-> 0.263-> 0.448-> 0.674-> 0.559; no longer following Likely mismatch demand ischemia due to acute CHF exacerbation with fluid volume overload Patient denies chest pain/palpitations. Continues to wear LifeVest Will monitor on continuous telemetry. Optimize cardiac output. Daily ASA and statin. (5) Hypotension Qualifiers: Hypotension type: other hypotension type Qualified Code(s): I95.89 - Other hypotension Is this a current diagnosis for this admission?: Yes Plan: Improved. Optimize cardiac output. Discussed with Dr. Yee; will resume home dose of Midodrin Fall precautions. - Time Time Spent with patient: 25-34 minutes Medications reviewed and adjusted accordingly: Yes Anticipated discharge: Home with Homehealth Within: within 48 hours
--- NOTE | 2019-10-27 15:34 | XCELERA REPORT ---
[address] [address] Lower Extremity Arterial Evaluation Name: JARROD PAYNE Age: 78 yrs Gender: Male : 1940 Patient Status: Inpatient Patient Location: [address] [place] [address] Study Date: 10/27/2019 11:13 AM Procedure: A color flow and duplex scan of the lower extremity arteries was performed bilaterally with velocity and waveform anaylsis. Reason For Study: dusky toes, weak pulses Ordering Physician: CHRISTOPHER RODRIGUEZ Performed By: James Jose Measurements and Calculations Right Left COMPLAINTS COORDINATOR PSV 49.0 52.4 cm/sec Prox PFA PSV -22.8 -47.5 cm/sec Prox SFA PSV 38.0 50.3 cm/sec Mid SFA PSV -31.7 -63.3 cm/sec Dist SFA PSV -25.3 -39.0 cm/sec Prox Pop A PSV 24.6 49.1 cm/sec Dist Pop A PSV -30.8 -21.0 cm/sec Prox CAROLYN PSV 29.1 29.1 cm/sec Mid CAROLYN PSV -7.7 cm/sec Dist CAROLYN PSV -11.6 9.2 cm/sec Dist CONSULTANT EDUCATION PSV 50.9 56.4 cm/sec Alpesh Pedis PSV 9.4 25.7 cm/sec Right Side Arterial Evaluation Low velocity and triphasic waveforms, no spectral broadening, noted from the Common Femoral artery to the Posterior tibial. Biphasic with very low velocity, retrograde flow in the velocity in the Posterior tibial. Ankle Brachial index not done. Left Side Arterial Evaluation Low velocity and triphasic waveforms, no spectral broadening, noted from the Common Femoral artery to the Posterior tibial. Triphasic with low velocity, retrograde flow in the velocity in the Posterior tibial. Ankle Brachial index not done. Interpretation Summary Unusual duplex findings with disease apparently confined to the Anterior Tibial arteries, worse on right, with low velocities, otherwise well preserved characteristics in other arteries. One explanation could be low cardiac out put state. : CHRISTOPHER RODRIGUEZ > David Mojica
[2019-10-27] MEDS: ATORVASTATIN CALCIUM 20 MG TABLET PO SCH (22:05)
[2019-10-27 23:12] LABS: CREATINE KINASE MB 1.45 ng/mL (<4.55)
[2019-10-27 23:16] LABS: ANION GAP 11 (5-19); BLOOD UREA NITROGEN 36 mg/dL (7-20); CALCIUM 8.9 mg/dL (8.4-10.2); CARBON DIOXIDE 25 mmol/L (22-30); CHLORIDE 101 mmol/L (98-107); CREATINE KINASE 51 U/L (55-170); GLUCOSE 123 mg/dL (75-110); POTASSIUM 4.2 mmol/L (3.6-5.0); TROPONIN I 0.241 ng/mL
[2019-10-28] MEDS: HEPARIN SOD (PORCINE) 5,000 UNIT/ML 1 ML VIAL SUBCUT SCH ×3 (05:55→21:13)
[2019-10-28] MEDS: LOSARTAN POTASSIUM 25 MG TABLET PO SCH ×2 (06:08→17:29)
[2019-10-28 07:37] LABS: HEPATITS B SURFACE ANTIGEN Negative (Negative)
[2019-10-28] MEDS: MIDODRINE HCL 5 MG TABLET PO SCH ×3 (09:42→17:29)
[2019-10-28] MEDS: POTASSIUM CHLORIDE 10 MEQ TABLET.ER PO SCH ×2 (09:42→21:16)
[2019-10-28] MEDS: ASPIRIN 81 MG TABLET, ENT COATED PO SCH (09:42)
[2019-10-28] MEDS: METOPROLOL SUCCINATE 25 MG TAB.SR.24H PO SCH (09:42)
[2019-10-28] MEDS: UMECLIDINIUM BROMIDE 62.5 MCG/DOSE IH SCH (09:42)
[2019-10-28] MEDS: PANTOPRAZOLE SODIUM 40 MG TABLET.DR PO SCH (09:42)
[2019-10-28] MEDS: FUROSEMIDE INJ/PF 40 MG/4 ML SDV IV SCH (09:43)
[2019-10-28 16:15] LABS: HEPATITIS C VIRUS ANTIBODY <0.1 s/co ratio (0.0-0.9)
--- NOTE | 2019-10-28 16:24 | PDOC PROGRESS REPORT ---
Subjective Progress Note for:: 10/28/19 Subjective:: JARROD PAYNE is a 78 year old male with a past medical history of chronic thrombocytopenia, coronary artery disease, dyslipidemia, end-stage heart failure with LifeVest and hypotension who was admitted for acute CHF exacerbation, elevated LFTs, and hypotension. The patient was seen on afternoon rounds with multiple family members present. He was found resting in bed, comfortably, on room air. He is A&O x4; conversational, spoke in complete sentences not noted to be in any acute distress. He reports that he is feeling better today with decreased abdominal distention, bilateral leg edema, and shortness of breath at rest. He does continue to have dyspnea with minimal exertion. Admits to anxiety about d/c to home. Does express interest in home health and palliative consultations. He further denies fever, chills, chest pain, palpitations, dyspnea, cough, abdominal pain, nausea vomiting and diarrhea. They have no questions or concerns at this time. No concerns per nursing. Reason For Visit: HEART FAILURE Physical Exam Vital Signs: Temp Pulse Resp BP Pulse Ox 97.7 F 74 16 121/96 H 91 L 10/28/19 12:28 10/28/19 14:00 10/28/19 12:28 10/28/19 12:28 10/28/19 12:28 Intake & Output 10/27/19 10/28/19 10/29/19 06:59 06:59 06:59 Intake Total 1337 1367 Output Total 950 800 Balance 387 567 Weight 85.1 kg 87.2 kg General appearance: PRESENT: no acute distress, cooperative, thin, well-devel oped, well-nourished Head exam: PRESENT: atraumatic, normocephalic Eye exam: PRESENT: conjunctiva pink, EOMI, PERRLA. ABSENT: scleral icterus Mouth exam: PRESENT: moist, tongue midline Respiratory exam: PRESENT: clear to auscultation joslyn, symmetrical, unlabored. ABSENT: rales, rhonchi, wheezes Cardiovascular exam: PRESENT: RRR, +S1, +S2. ABSENT: diastolic murmur, rubs, systolic murmur Pulses: PRESENT: +1 pedal pulses bilateral Vascular exam: PRESENT: normal capillary refill Rectal exam: PRESENT: deferred Extremities exam: PRESENT: full ROM. ABSENT: calf tenderness, clubbing, pedal edema Musculoskeletal exam: PRESENT: ambulatory Neurological exam: PRESENT: alert, awake, oriented to person, oriented to place, oriented to time, oriented to situation, CN II-XII grossly intact. ABSENT: motor sensory deficit Psychiatric exam: PRESENT: anxious, appropriate affect. ABSENT: homicidal ideation, suicidal ideation Skin exam: PRESENT: dry, intact, warm. ABSENT: cyanosis, rash Results Laboratory Results: 10/25/19 16:25 10/27/19 22:32 10/27/19 22:32 Sodium 136.7 L Potassium 4.2 Chloride 101 Carbon Dioxide 25 Anion Gap 11 BUN 36 H Creatinine 1.01 Est GFR ( Amer) > 60 Glucose 123 H Calcium 8.9 Magnesium 2.1 10/25/19 10/25/19 10/26/19 16:25 21:54 04:04 Creatine Kinase CK-MB (CK-2) Troponin I 0.179 0.226 0.263 NT-Pro-B Natriuret Pep 60043 H 10/26/19 10/26/19 10/26/19 11:13 15:39 21:26 Creatine Kinase CK-MB (CK-2) Troponin I 0.448 0.674 0.559 NT-Pro-B Natriuret Pep 10/27/19 10/27/19 22:32 22:32 Creatine Kinase 51 L CK-MB (CK-2) 1.45 Troponin I 0.241 NT-Pro-B Natriuret Pep Impressions: Chest X-Ray 10/25/19 15:59 IMPRESSION: Stable enlarged cardiac silhouette with small bilateral pleural effusions and interstitial prominence, likely edema. No overt alveolar edema. Abdomen Ultrasound 10/26/19 00:00 IMPRESSION: 1. 4.4 cm infrarenal abdominal aortic aneurysm. AAA Size: Follow-up Recommendation 4.0-4.4 cm Every 12 months, vascular consultation recommended *Based upon the Society for Vascular Surgery Guidelines: J Vasc Surg. 2009 Jun;50(4 Suppl):S2-49 *For aortas of maximum diameter of 2.6-2.9 cm meeting the criteria for AAA (?1.5 x proximal normal segment) Assessment and Plan - Diagnosis (1) Acute systolic congestive heart failure, NYHA class 2 Is this a current diagnosis for this admission?: Yes Plan: The patient is admitted to [facility] on continuous cardiac telemetry. His home dose metoprolol and losartan are continued. Daily aspirin and statin therapy are continued Transition to p.o furosemide today Cardiac diet. Fluid restriction. Daily weights and strict I&O's. Dr. Coronado is consulted; appreciate his evaluation recommendations (2) LFT elevation Is this a current diagnosis for this admission?: Yes Plan: Likely secondary to acute on chronic CHF Patient does have abdominal distention with possible ascites on exam. He does have a remote history of heavy alcohol use. Right upper quadrant ultrasound is benign. Hepatitis panel pending Follow-up LFTs are slightly improved. (3) Depression Is this a current diagnosis for this admission?: Yes Plan: Benzodiazepine as needed (4) Elevated troponin Is this a current diagnosis for this admission?: Yes Plan: Troponin 0.179-> 0.226-> 0.263-> 0.448-> 0.674-> 0.559-> 0.241; no longer following Likely mismatch demand ischemia due to acute CHF exacerbation with fluid volume overload Patient denies chest pain/palpitations. Continues to wear LifeVest Will monitor on continuous telemetry. Optimize cardiac output. Daily ASA and statin. (5) Hypotension Qualifiers: Hypotension type: other hypotension type Qualified Code(s): I95.89 - Other hypotension Is this a current diagnosis for this admission?: Yes Plan: Improved. Optimize cardiac output. Discussed with Dr. Yee; will resume home dose of Midodrin Fall precautions. (6) Bilateral leg edema Is this a current diagnosis for this admission?: Yes Plan: Secondary to CHF. Bilateral lower extremity arterial ultrasound revealed unusual duplex findings confined to the anterior tibial artery, worse on the right, low velocities but otherwise well-preserved characteristics. Likely explanation would be low cardiac output state. Improved today with reduced dusky color, improved capillary refill, and palpable pedal pulses. - Time Time Spent with patient: 35 or more minutes Medications reviewed and adjusted accordingly: Yes Anticipated discharge: Home with Homehealth Within: within 24 hours
[2019-10-28] MEDS: FUROSEMIDE 40 MG TABLET PO SCH (17:29)
--- NOTE | 2019-10-28 21:14 | Progress Note ---
Provider Note Provider Note: CARDIOLOGY PROGRESS NOTE by Dr. Mari Coronado on 10/28/2019. OBJECTIVE: The patient states he feels better. He is much less short of breath. He has no PND orthopnea. There is no ventricular arrhythmias on the monitor. There is no firing of his LifeVest. He has no TIA CVA symptoms. His leg edema is much improved. Physical EXAMINATION: The patient is well-built. At present in no acute distress. Selected Entries 10/28/19 12:28 Temperature 97.7 F Temperature Axillary Source Pulse Rate 76 Respiratory 16 Rate Blood Pressure 121/96 H Blood Pressure 104 Mean BP Location Right Arm BP Position Sitting O2 Sat by Pulse 91 L Oximetry Oxygen Flow 2.00 Rate Oxygen Delivery Nasal Cannula Method HEAD: Is atraumatic normocephalic. EYES: Pupils are equal round regular reactive to light accommodation. Extraocular movements are normal. There is no conjunctival pallor. There is no scleral icterus. ENT is negative. Neck is supple. There is mild JVD present. Carotids are equal there is no bruit. There is no accessory muscle respiration use. There is no lymphadenopathy. There is no goiter. Trachea central. LUNGS: Shows a few bibasilar rales of CHF. There is no hyperresonance or dullness. On palpation there is no chest wall tenderness. HEART: S1-S2 is heard. There is no S3 gallop. There is no S4 gallop. There is systolic murmur of mitral regurgitation and tricuspid regurgitation present. There is no aortic stenosis murmur. There is no aortic regurgitation murmur. There is no rub. ABDOMEN: Soft there is mild abdominal wall edema. There is NO HEPATOSPLENOMEGALY. BOWEL SOUNDS WELL HEARD. THERE IS NO TENDER AREAS MASSES. Extremities: There is is trace pedal edema bilaterally. There is chronic venous stasis dermatitis changes. Leg pulses are difficult to palpate due to edema. Femorals are well felt. There is no femoral bruits. There is no DVT or cellulitis. There is no calf tenderness. There is no cyanosis or clubbing. 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 PSYCHIATRIC: The patient judgment insight are intact his affect is normal. THE patient's total 24-hour intake 1367 mL. His total 24-hour output is 800 mL. Labs- All tests 24 hr 10/26/19 15:39 Hepatitis A IgM Ab Negative Hep Bs Antigen Negative Hep B Core IgM Ab Negative Hepatitis C Antibody <0.1 Chest X-Ray 10/25/19 15:59 IMPRESSION: Stable enlarged cardiac silhouette with small bilateral pleural effusions and interstitial prominence, likely edema. No overt alveolar edema. Abdomen Ultrasound 10/26/19 00:00 IMPRESSION: 1. 4.4 cm infrarenal abdominal aortic aneurysm. AAA Size: Follow-up Recommendation 4.0-4.4 cm Every 12 months, vascular consultation recommended IMPRESSION/RECOMMENDATIONS: 1. Relative Hypotension: This is secondary to poor cardiac output due to the patient's severe cardiomyopathy. His blood pressure is stable, and he is able to tolerate beta-deandra dose and ARB dose. 2. Acute on chronic systolic heart failure. At present seems to be well compensated. Continue the patient's beta-deandra, ARB and midodrine. 3. Cardiomyopathy with severely reduced LV ejection fraction. His CHF is stable, and compensated. 4. Peripheral vascular disease with history of intra-abdominal aortic aneurysm: At present it is a 4.4 cm. Will later get a vascular surgery consult. This can be done as an outpatient. 5 coronary artery disease. The patient's Stress test which is abnormal is consistent with there being no reversible ischemia. 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 6. Bifascicular block. 7. LIFEVEST:: No firing of the LifeVest. The patient will be referred for outpatient AICD placement. Medications reviewed. Medical regimen and management plan discussed with attending physician on the case. Medical decision making hours of moderate complexity. 35 minutes spent as patient more than 50% of time spent in direct patient care. Will follow.
[2019-10-28] MEDS: ATORVASTATIN CALCIUM 20 MG TABLET PO SCH (21:16)
--- NOTE | 2019-10-28 23:55 | EKG REPORT ---
SEVERITY:- ABNORMAL ECG - SINUS RHYTHM LEFT ATRIAL ABNORMALITY NONSPECIFIC INTRAVENTRICULAR CONDUCTION DELAY INFERIOR INFARCT, AGE INDETERMINATE LATERAL INFARCT, AGE INDETERMINATE ANTERIOR INFARCT, AGE INDETERMINATE : Confirmed by: Keyla Batres 28-Oct-2019 23:54:43
[2019-10-29] MEDS: HEPARIN SOD (PORCINE) 5,000 UNIT/ML 1 ML VIAL SUBCUT SCH ×2 (05:36→13:37)
[2019-10-29 05:37] LABS: ANION GAP 13 (5-19); BLOOD UREA NITROGEN 39 mg/dL (7-20); CALCIUM 8.9 mg/dL (8.4-10.2); CARBON DIOXIDE 23 mmol/L (22-30); CHLORIDE 103 mmol/L (98-107); GLUCOSE 103 mg/dL (75-110); POTASSIUM 4.4 mmol/L (3.6-5.0)
[2019-10-29] MEDS: LOSARTAN POTASSIUM 25 MG TABLET PO SCH ×2 (05:48→17:01)
[2019-10-29] MEDS: UMECLIDINIUM BROMIDE 62.5 MCG/DOSE IH SCH (10:19)
[2019-10-29] MEDS: POTASSIUM CHLORIDE 10 MEQ TABLET.ER PO SCH (10:19)
[2019-10-29] MEDS: PANTOPRAZOLE SODIUM 40 MG TABLET.DR PO SCH (10:20)
[2019-10-29] MEDS: FUROSEMIDE 40 MG TABLET PO SCH ×2 (10:20→17:02)
[2019-10-29] MEDS: MIDODRINE HCL 5 MG TABLET PO SCH ×3 (10:20→17:01)
[2019-10-29] MEDS: METOPROLOL SUCCINATE 25 MG TAB.SR.24H PO SCH (10:20)
[2019-10-29] MEDS: ASPIRIN 81 MG TABLET, ENT COATED PO SCH (10:20)
--- NOTE | 2019-10-29 14:35 | PDOC DISCHARGE SUMMARY ---
Impression - Admit/DC Date/PCP Admission Date/Primary Care Provider: 10/26/19 14:00 KAVITHA JAIN MD Discharge Date: 10/29/19 - Discharge Diagnosis (1) Acute systolic congestive heart failure, NYHA class 2 Is this a current diagnosis for this admission?: Yes (2) LFT elevation Is this a current diagnosis for this admission?: Yes (3) Depression Is this a current diagnosis for this admission?: Yes (4) Elevated troponin Is this a current diagnosis for this admission?: Yes (5) Hypotension Is this a current diagnosis for this admission?: Yes (6) Bilateral leg edema Is this a current diagnosis for this admission?: Yes - Additional Information Resuscitation Status: Full Code Discharge Diet: Cardiac Discharge Activity: Activity As Tolerated, Balance Activity w/Rest Referrals: KAVITHA JAIN MD [Primary Care Provider] - 11/09/19 2:00 pm ANISH CARRANZA MD [ACTIVE STAFF] - Prescriptions: Furosemide [Lasix 40 mg Tablet] 40 mg PO BID #60 tablet Midodrine HCl [Proamatine 5 mg Tablet] 10 mg PO TID #180 tablet Alprazolam [Xanax 0.25 mg Tablet] 0.25 mg PO Q8HP PRN #10 tablet PRN Reason: Home Medications: Aspirin [Ecotrin 81 mg EC Tablet] 81 mg PO DAILY 30 Days #30 tabec 03/23/19 Atorvastatin Calcium [Lipitor 20 mg Tablet] 20 mg PO QHS #30 tablet 10/20/19 Clonazepam [Klonopin 1 mg Tablet] 0.25 mg PO Q8H PRN #9 tablet 10/20/19 Losartan Potassium [Cozaar 25 mg Tablet] 25 mg PO Q12A #30 tablet 10/20/19 Metoprolol Succinate [Toprol Xl 25 mg Tab.sr] 25 mg PO DAILY #30 tab.sr.24h 10/20/19 Pantoprazole Sodium [Protonix [address] Tablet] 40 mg PO DAILY #30 tablet.dr 10/20/19 Acetaminophen [Tylenol 325 mg Tablet] 650 mg PO Q4HP PRN tablet 10/29/19 Alprazolam [Xanax 0.25 mg Tablet] 0.25 mg PO Q8HP PRN #10 tablet 10/29/19 Furosemide [Lasix 40 mg Tablet] 40 mg PO BID #60 tablet 10/29/19 Midodrine HCl [Proamatine 5 mg Tablet] 10 mg PO TID #180 tablet 10/29/19 Umeclidinium [place] [Incruse 62.5 Mcg Ellipta 7 Dose/Dpi] 1 inh IH DAILY inhaler 10/29/19 History of Present Illiness History of Present Illness: H&P per Dr. Madera: JARROD PAYNE is a 78 year old male with a past medical history of chronic thrombocytopenia, coronary artery disease, dyslipidemia, end- stage heart failure with LifeVest and hypotension. He was discharged 5 days ago but has had progressively increased edema and a weight gain of 5 kg in 5 days. Patient denies chest pain nausea vomiting or or missing medications. He admits to dietary indiscretion secondary to excessive thirst. In the emergency department he is found to have hypotension, acute renal failure and elevated LFTs suggestive of alcohol abuse. He admits to uncontrolled depression though denies homicidal or suicidal ideation. Hospital Course Hospital Course: (1) Acute systolic congestive heart failure, NYHA class 2 The patient was admitted to [facility] on continuous cardiac telemetry. His home dose metoprolol and losartan were continued. Daily aspirin and statin therapy were continued He was diuresed with IV furosemide and transitioned to p.o furosemide prior to discharge. He was managed with a cardiac diet, fluid restriction, daily weights and strict I&O's. Dr. Carranza was consulted; medication management per his expertise. (2) LFT elevation Secondary to acute on chronic CHF Right upper quadrant ultrasound is benign. Hepatitis panel was negative Follow-up LFTs were slightly improved. (3) Depression Supportive care (4) Elevated troponin Troponin 0.179-> 0.226-> 0.263-> 0.448-> 0.674-> 0.559-> 0.241; no longer following Likely mismatch demand ischemia due to acute CHF exacerbation with fluid volume overload Patient denied chest pain/palpitations. Continues to wear LifeVest; has not fired. (5) Hypotension Improved. Optimize cardiac output. Discussed with Dr. Yee; continue home dose of Midodrin (6) Bilateral leg edema Secondary to CHF. Bilateral lower extremity arterial ultrasound revealed unusual duplex findings confined to the anterior tibial artery, worse on the right, low velocities but otherwise well-preserved characteristics. Likely explanation would be low cardiac output state. Improved on day of exam with brisk capillary refill and palpable pedal pulses bilaterally. Physical Exam Vital Signs: Temp Pulse Resp BP Pulse Ox 97.4 F 75 16 97/77 L 98 10/29/19 12:21 10/29/19 12:21 10/29/19 12:21 10/29/19 12:21 10/29/19 12:21 Intake & Output 10/28/19 10/29/19 10/30/19 06:59 06:59 06:59 Intake Total 1367 1020 840 Output Total 800 Balance 567 1020 840 Weight 87.2 kg 85.4 kg General appearance: PRESENT: no acute distress, cooperative, thin, well- developed, well-nourished Head exam: PRESENT: atraumatic, normocephalic Eye exam: PRESENT: conjunctiva pink, EOMI, PERRLA. ABSENT: scleral icterus Ear exam: PRESENT: normal external ear exam Mouth exam: PRESENT: moist, tongue midline Respiratory exam: PRESENT: clear to auscultation joslyn, symmetrical, unlabored. ABSENT: rales, rhonchi, wheezes Cardiovascular exam: PRESENT: RRR, +S1, +S2. ABSENT: diastolic murmur, rubs, systolic murmur Pulses: PRESENT: +1 pedal pulses bilateral Vascular exam: PRESENT: normal capillary refill GI/Abdominal exam: PRESENT: normal bowel sounds, soft. ABSENT: distended, guarding, mass, organolmegaly, rebound, tenderness Rectal exam: PRESENT: deferred Extremities exam: PRESENT: full ROM. ABSENT: calf tenderness, clubbing, pedal edema Musculoskeletal exam: PRESENT: ambulatory Neurological exam: PRESENT: alert, awake, oriented to person, oriented to place, oriented to time, oriented to situation, CN II-XII grossly intact. ABSENT: motor sensory deficit Psychiatric exam: PRESENT: anxious, normal mood. ABSENT: homicidal ideation, suicidal ideation Skin exam: PRESENT: dry, intact, warm. ABSENT: cyanosis, rash Results Laboratory Results: WBC 8.3 10^3/uL (4.0-10.5) 10/25/19 16:25 RBC 5.53 10^6/uL (4.35-5.55) 10/25/19 16:25 Hgb 16.3 g/dL (13.5-17.0) 10/25/19 16:25 Hct 49.4 % (37.9-51.0) 10/25/19 16:25 MCV 89 fl (80-97) 10/25/19 16:25 MCH 29.5 pg (27.0-33.4) 10/25/19 16:25 MCHC 33.0 g/dL (32.0-36.0) 10/25/19 16:25 RDW 16.0 % (11.5-14.0) H 10/25/19 16:25 Plt Count 107 10^3/uL (150-450) L 10/25/19 16:25 Lymph % (Auto) 16.0 % (13-45) 10/25/19 16:25 [place] % (Auto) 10.0 % (3-13) 10/25/19 16:25 Eos % (Auto) 0.2 % (0-6) 10/25/19 16:25 Baso % (Auto) 0.5 % (0-2) 10/25/19 16:25 Absolute Neuts (auto) 6.1 10^3/uL (1.7-8.2) 10/25/19 16:25 Absolute Lymphs (auto) 1.3 10^3/uL (0.5-4.7) 10/25/19 16:25 Absolute Monos (auto) 0.8 10^3/uL (0.1-1.4) 10/25/19 16:25 Absolute Eos (auto) 0.0 10^3/uL (0.0-0.6) 10/25/19 16:25 Absolute Basos (auto) 0.0 10^3/uL (0.0-0.2) 10/25/19 16:25 Seg Neutrophils % 73.3 % (42-78) 10/25/19 16:25 Sodium 138.5 mmol/L (137-145) 10/29/19 04:39 Potassium 4.4 mmol/L (3.6-5.0) 10/29/19 04:39 Chloride 103 mmol/L (98-107) 10/29/19 04:39 Carbon Dioxide 23 mmol/L (22-30) 10/29/19 04:39 Anion Gap 13 (5-19) 10/29/19 04:39 BUN 39 mg/dL (7-20) H 10/29/19 04:39 Creatinine 1.18 mg/dL (0.52-1.25) 10/29/19 04:39 Est GFR ( Amer) > 60 (>60) 10/29/19 04:39 Est GFR (MDRD) Non-Af > 60 (>60) 10/29/19 04:39 Glucose 103 mg/dL (75-110) 10/29/19 04:39 Calcium 8.9 mg/dL (8.4-10.2) 10/29/19 04:39 Magnesium 2.1 mg/dL (1.6-2.3) 10/27/19 22:32 Total Bilirubin 2.0 mg/dL (0.2-1.3) H 10/27/19 04:23 Direct Bilirubin 1.0 mg/dL (0.0-0.4) H 10/27/19 04:23 Neonat Total Bilirubin Not Reportable 10/27/19 04:23 Neonat Direct Bilirubin Not Reportable 10/27/19 04:23 Neonat Indirect Bili Not Reportable 10/27/19 04:23 AST 215 U/L (17-59) H 10/27/19 04:23 ALT 183 U/L (<50) 10/27/19 04:23 Alkaline Phosphatase 161 U/L (38-126) H 10/27/19 04:23 Creatine Kinase 51 U/L (55-170) L 10/27/19 22:32 CK-MB (CK-2) 1.45 ng/mL (<4.55) 10/27/19 22:32 Troponin I 0.241 ng/mL 10/27/19 22:32 NT-Pro-B Natriuret Pep 43597 pg/mL (<450) H 10/25/19 16:25 Total Protein 6.1 g/dL (6.3-8.2) L 10/27/19 04:23 Albumin 3.3 g/dL (3.5-5.0) L 10/27/19 04:23 Hepatitis A IgM Ab Negative (Negative) 10/26/19 15:39 Hep Bs Antigen Negative (Negative) 10/26/19 15:39 Hep B Core IgM Ab Negative (Negative) 10/26/19 15:39 Hepatitis C Antibody <0.1 s/co ratio (0.0-0.9) 10/26/19 15:39 10/25/19 10/25/19 10/26/19 16:25 21:54 04:04 CK-MB (CK-2) Troponin I 0.179 0.226 0.263 NT-Pro-B Natriuret Pep 18516 H 10/26/19 10/26/19 10/26/19 11:13 15:39 21:26 CK-MB (CK-2) Troponin I 0.448 0.674 0.559 NT-Pro-B Natriuret Pep 10/27/19 22:32 CK-MB (CK-2) 1.45 Troponin I 0.241 NT-Pro-B Natriuret Pep Impressions: Chest X-Ray 10/25/19 15:59 IMPRESSION: Stable enlarged cardiac silhouette with small bilateral pleural effusions and interstitial prominence, likely edema. No overt alveolar edema. Abdomen Ultrasound 10/26/19 00:00 IMPRESSION: 1. 4.4 cm infrarenal abdominal aortic aneurysm. AAA Size: Follow-up Recommendation 4.0-4.4 cm Every 12 months, vascular consultation recommended *Based upon the Society for Vascular Surgery Guidelines: J Vasc Surg. 2009 Jun;50(4 Suppl):S2-49 *For aortas of maximum diameter of 2.6-2.9 cm meeting the criteria for AAA (?1.5 x proximal normal segment) Plan Plan of Treatment: The patient is discharged to home in stable condition with home health services. Arrangements are made for him to receive supplemental oxygen. He is advised to follow-up with his primary care provider within [address] Rios as scheduled. He is instructed to take his medications as prescribed. Fluid restrict to 2 L daily. Return to the emergency department as needed for concerning symptoms. Time Spent: Greater than 30 Minutes Stroke Is this a Stroke Patient?: No Acute Heart Failure - Is this a Heart Failure Patient?: Yes Documentation of LVEF assessment?: Yes LVEF < 40%?: Yes-if yes answer questions a through e a) Discharged on ACEI?: N/A Discharged on ARB b) Discharges on ARB?: Yes c) Discharged on ARNI?: No-Document Contraindications Reason(s) not discharged on ARNI: Hypotension d) Discharged on evidence-based Beta deandra(carvedilol, sustained release metoprolol succinate, or bisoprolol)?: Yes e) For LVEF <35%, discharged on Aldosterone antagonist?: Yes 3. Anticoagulant therapy for permanect/persistent/paraoxysmal Afib or Aflutter: N/A Follow-up Appointment scheduled within 7 days?: Yes
--- NOTE | 2019-10-29 17:20 | Progress Note ---
Provider Note Provider Note: CARDIOLOGY PROGRESS NOTE by Dr. Mari Coronado on 10/29/2019. SUBJECTIVE: The patient denies any chest pain or discomfort. There is no PND orthopnea. His blood pressure is better. The patient was found to be hypoxic at rest and with exertion it further dropped. And hence the patient is on nasal O2 2 L/min and is being discharged on it. There is no palpitations. There is no firing of the LifeVest. The patient being discharged today. We will arrange for the patient to have an AICD placed in [facility] as soon as possible. PHYSICAL EXAMINATION: The patient is well-built and well-nourished. In no acute distress. Selected Entries 10/28/19 10/29/19 10/29/19 12:28 16:43 17:21 Temperature 97.7 F 97.4 F Temperature Axillary Source Pulse Rate 76 85 Respiratory 16 16 Rate Blood Pressure 121/96 H Blood Pressure 108/76 [Left Upper Arm ] Blood Pressure 104 Mean BP Location Right Arm BP Position Sitting O2 Sat by Pulse 91 L 98 Oximetry Oxygen Flow 2.00 Rate Oxygen Delivery Nasal Cannula 2 liters/min Method HEAD: Is atraumatic normocephalic. EYES: Pupils are equal round regular reactive to light accommodation. Extraocular movements are normal. There is no conjunctival pallor. There is no scleral icterus. ENT is negative. Neck is supple. There is mild JVD present. Carotids are equal there is no bruit. There is no accessory muscle respiration use. There is no lymphadenopathy. There is no goiter. Trachea central. LUNGS: Shows a few bibasilar rales of CHF. There is no hyperresonance or dullness. On palpation there is no chest wall tenderness. HEART: S1-S2 is heard. There is no S3 gallop. There is no S4 gallop. There is systolic murmur of mitral regurgitation and tricuspid regurgitation present. There is no aortic stenosis murmur. There is no aortic regurgitation murmur. There is no rub. ABDOMEN: Soft there is mild abdominal wall edema. There is NO HEPATOSPLENOMEGALY. BOWEL SOUNDS WELL HEARD. THERE IS NO TENDER AREAS MASSES. Extremities: There is is trace pedal edema bilaterally. There is chronic venous stasis dermatitis changes. Leg pulses are difficult to palpate due to edema. Femorals are well felt. There is no femoral bruits. T here is no DVT or cellulitis. There is no calf tenderness. There is no cyanosis or clubbing. CLINICAL SUPPORT TECH: The patient is conscious awake alert oriented times with no focal deficits. PSYCHIATRIC: The patient judgment insight are intact his affect is normal. Labs- All tests 24 hr 10/29/19 04:39 Sodium 138.5 Potassium 4.4 Chloride 103 Carbon Dioxide 23 Anion Gap 13 BUN 39 H Creatinine 1.18 Est GFR ( Amer) > 60 Est GFR (MDRD) Non-Af > 60 Glucose 103 Calcium 8.9 Chest X-Ray 10/25/19 15:59 IMPRESSION: Stable enlarged cardiac silhouette with small bilateral pleural effusions and interstitial prominence, likely edema. No overt alveolar edema. Abdomen Ultrasound 10/26/19 00:00 IMPRESSION: 1. 4.4 cm infrarenal abdominal aortic aneurysm. AAA Size: Follow-up Recommendation 4.0-4.4 cm Every 12 months, vascular consultation recommended IMPRESSION/RECOMMENDATION: 1. Hypoxia: Patient being sent home on nasal oxygen. 2. Acute on chronic systolic heart failure. At present seems to be well compensated. Continue the patient's beta-deandra, ARB and midodrine. 3. Cardiomyopathy with severely reduced LV ejection fraction. His CHF is stable, and compensated. 4. Peripheral vascular disease with history of intra-abdominal aortic aneurysm: At present it is a 4.4 cm. Will later get a vascular surgery consult. This can be done as an outpatient. 5 coronary artery disease. The patient's Stress test which is abnormal is consistent with there being no reversible ischemia. 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 6. Bifascicular block. 7. LIFEVEST:: No firing of the LifeVest. The patient will be referred for outpatient AICD placement. Medications reviewed. Medical regimen and management plan discussed with attending physician on the case. Medical decision making is of moderate complexity. 35 minutes spent as patient more than 50% of time spent in direct patient care. Will sign off.
[2019-10-29 17:23] VITALS: BP 95/68
== END 2019-10-29 18:39 | disposition home health service (06) | DRG 292 ==
LOC: ER 14:47 → EH 21:22 → INTOOBSV 21:22 → 3W 10-26 00:53 → OBSVTOIN 10-26 14:00
PROVIDERS: ADMIT Internal Medicine; ATTEND Internal Medicine
DX: I50.23 Acute on chronic systolic (congestive) heart failure (principal); N17.9 Acute kidney failure, unspecified; I42.9 Cardiomyopathy, unspecified; Z95.811 Presence of heart assist device; I50.84 End stage heart failure; I25.10 Atherosclerotic heart disease of native coronary artery without angina pectoris; E78.5 Hyperlipidemia, unspecified; F32.9 Major depressive disorder, single episode, unspecified; Z86.711 Personal history of pulmonary embolism; Z82.49 Family history of ischemic heart disease and other diseases of the circulatory system; Z79.899 Other long term (current) drug therapy; Z88.0 Allergy status to penicillin; I95.89 Other hypotension; D69.59 Other secondary thrombocytopenia; R94.5 Abnormal results of liver function studies; R79.89 Other specified abnormal findings of blood chemistry; I73.9 Peripheral vascular disease, unspecified
CPT/HCPCS: 36415; 71046; 76705; 80048; 80053; 80074; 80076; 82550; 82553; 83735; 83880; 84484; 85025; 93005; 93010; 93925; 99291; G0378; J1940; J3490